=== PATIENT | female | born 1980 | race Caucasian/White ===

== ENCOUNTER 2018-09-13 17:09 | Emergency (ER) | payer MEDICARE, OTHER ==
[~2018-09-13] VITALS: Ht 154.9 cm; Wt 59.0 kg
[~2018-09-13 17:09] MED LIST: ASPI81EC PO; Bactroban22 GM TOP; CEPH500 PO; HYDACE5 PO; HYDMOR4 PO; IBUP400 PO; LORA.5 PO; NAPR550 PO; Percocet 5-3251 EACH PO; RXHYDACE PO; RXOXYACE PO; SERT50 PO; TRIM250 PO
[2018-09-13] MEDS ORDERED: AMOCLA400S PO (17:50)
== END 2018-09-13 18:27 | disposition home or self-care (01) ==
LOC: ER 17:09
DX: J02.0 Streptococcal pharyngitis (principal); F17.210 Nicotine dependence, cigarettes, uncomplicated
CPT/HCPCS: 99283; J1100

== ENCOUNTER 2019-03-07 01:47 | Emergency (ER) | payer MEDICARE, OTHER ==
[~2019-03-07] VITALS: Ht 154.9 cm; Wt 54.4 kg
[~2019-03-07 01:47] MED LIST changes: +AMOCLA400S PO
[2019-03-07] MEDS ORDERED: Roxicodone5 MG PO (04:55)
[2019-03-07] MEDS ORDERED: PAROEX473 ML MM (04:55)
[2019-03-07] MEDS ORDERED: ONDA4ODT MM (05:08)
== END 2019-03-07 05:52 | disposition home or self-care (01) ==
LOC: ER 01:47
DX: S06.9X9A Unspecified intracranial injury with loss of consciousness of unspecified duration, initial encounter (principal); S32.10XA Unspecified fracture of sacrum, initial encounter for closed fracture; S01.511A Laceration without foreign body of lip, initial encounter; S01.512A Laceration without foreign body of oral cavity, initial encounter; F41.9 Anxiety disorder, unspecified; F17.210 Nicotine dependence, cigarettes, uncomplicated; W19.XXXA Unspecified fall, initial encounter
CPT/HCPCS: 12011; 70450; 70486; 72220; 90471; 90714; 99284-25; A9270; A9270-GY

== ENCOUNTER 2021-11-15 16:19 | Emergency (ER) | payer MEDICARE, OTHER ==
[~2021-11-15] VITALS: Ht 154.9 cm; Wt 61.2 kg
[~2021-11-15 16:19] MED LIST changes: +ONDA4ODT MM; +PAROEX473 ML MM; +Roxicodone5 MG PO
[2021-11-15 17:23] LABS: Albumin, Blood 3.8 g/dL (3.4-5.0); Albumin/Globulin Ratio 0.9 (0.8-1.8); Bilirubin, Total 0.6 mg/dL (0.1-1.0); Bun/Creatinine Ratio 24.8 (12.0-20.0); Calcium, Blood 8.7 mg/dL (8.5-10.1); Creatinine, Blood 1.01 mg/dL (0.40-1.00); Globulin, Blood 4.2 g/dL (2.2-4.0); Potassium, Blood 4.9 mmol/L (3.5-5.5)
[2021-11-15 18:04] LABS: BASOPHILS ABSOLUTE AUTO 0.05 K/mm3 (0.00-0.23); BASOPHILS PERCENT AUTO 1 % (0-2); EOSINOPHILS ABSOLUTE AUTO 0.08 K/mm3 (0.00-0.68); EOSINOPHILS PERCENT AUTO 1 % (0-6); Hematocrit 49.5 % (33.0-51.0); Hemoglobin 16.8 g/dL (11.5-16.0); IMMATURE GRAN ABSOLUTE AUTO 0.03 K/mm3 (0.00-0.10); IMMATURE GRAN PERCENT AUTO 0 % (0-1); LYMPHOCYTES ABSOLUTE AUTO 3.83 K/mm3 (0.84-5.20); LYMPHOCYTES PERCENT AUTO 36 % (21-46); MONOCYTES ABSOLUTE AUTO 0.59 K/mm3 (0.16-1.47); MONOCYTES PERCENT AUTO 6 % (4-13); Mean Corpuscular HGB 31.6 pg (26.0-34.0); Mean Corpuscular HGB Conc 33.9 g/dL (31.5-36.5); Mean Corpuscular Volume 93 fL (80-100); NEUTROPHILS ABSOLUTE AUTO 5.95 K/mm3 (1.96-9.15); NEUTROPHILS PERCENT AUTO 56 % (41-73); Platelet Count 214 K/mm3 (150-400); RDW Coefficient Variation 13.3 % (11.7-14.2); RDW Standard Deviation 46.5 fL (35.1-46.3); Red Blood Cell Count 5.31 M/mm3 (3.80-5.20); White Blood Cell Count 10.53 K/mm3 (4.00-11.30)
== END 2021-11-15 23:10 | disposition home or self-care (01) ==
LOC: ER 16:19
PROVIDERS: Emergency Medicine; Physician Assistant
DX: R60.0 Localized edema (principal); F17.210 Nicotine dependence, cigarettes, uncomplicated
CPT/HCPCS: 36415; 71045; 71260; 80053; 83880; 84484; 85025; 85379; 93005; 93010; 93970; 99284-25; Q9967

== ENCOUNTER 2022-06-24 22:51 | Emergency (ER) | payer MEDICARE, OTHER ==
[~2022-06-24 22:51] MED LIST changes: +HYDHCL25 PO
== END 2022-06-25 04:35 | disposition home or self-care (01) ==
DX: M54.9 Dorsalgia, unspecified (principal); F17.210 Nicotine dependence, cigarettes, uncomplicated

== ENCOUNTER 2022-07-05 18:10 | Emergency (ER) | payer MEDICARE, OTHER ==
[~2022-07-05] VITALS: Ht 154.9 cm; Wt 59.0 kg
[2022-07-05 21:41] LABS: BASOPHILS ABSOLUTE AUTO 0.05 K/mm3 (0.00-0.23); BASOPHILS PERCENT AUTO 0 % (0-2); EOSINOPHILS ABSOLUTE AUTO 0.02 K/mm3 (0.00-0.68); EOSINOPHILS PERCENT AUTO 0 % (0-6); Hematocrit 46.6 % (33.0-51.0); Hemoglobin 16.4 g/dL (11.5-16.0); IMMATURE GRAN ABSOLUTE AUTO 0.06 K/mm3 (0.00-0.10); IMMATURE GRAN PERCENT AUTO 0 % (0-1); LYMPHOCYTES ABSOLUTE AUTO 2.71 K/mm3 (0.84-5.20); LYMPHOCYTES PERCENT AUTO 13 % (21-46); MONOCYTES ABSOLUTE AUTO 1.31 K/mm3 (0.16-1.47); MONOCYTES PERCENT AUTO 6 % (4-13); Mean Corpuscular HGB 32.3 pg (26.0-34.0); Mean Corpuscular HGB Conc 35.2 g/dL (31.5-36.5); Mean Corpuscular Volume 92 fL (80-100); NEUTROPHILS ABSOLUTE AUTO 16.34 K/mm3 (1.96-9.15); NEUTROPHILS PERCENT AUTO 80 % (41-73); Platelet Count 341 K/mm3 (150-400); RDW Coefficient Variation 14.2 % (11.7-14.2); RDW Standard Deviation 47.7 fL (35.1-46.3); Red Blood Cell Count 5.07 M/mm3 (3.80-5.20); White Blood Cell Count 20.49 K/mm3 (4.00-11.30)
[2022-07-05 22:02] LABS: Albumin, Blood 2.9 g/dL (3.4-5.0); Albumin/Globulin Ratio 0.7 (0.8-1.8); Bilirubin, Total 0.8 mg/dL (0.1-1.0); Calcium, Blood 8.8 mg/dL (8.5-10.1); Creatinine, Blood 0.79 mg/dL (0.40-1.00); Globulin, Blood 4.1 g/dL (2.2-4.0)
[2022-07-05 22:27] LABS: Influenza B, PCR NEGATIVE (NEGATIVE); Resp Syncytial Virus, PCR NEGATIVE (NEGATIVE); SARS-Cov-2 (COVID-19) PCR, MMC NEGATIVE (NEGATIVE)
[2022-07-06 00:04] LABS: Influenza A, PCR POSITIVE (NEGATIVE)
[2022-07-06] MEDS ORDERED: Tamiflu75 MG PO (01:46)
== END 2022-07-06 02:02 | disposition home or self-care (01) ==
LOC: ER 18:10
PROVIDERS: Emergency Medicine; Student in an Organized Health Care Education/Training Program
DX: J44.1 Chronic obstructive pulmonary disease with (acute) exacerbation (principal); J10.1 Influenza due to other identified influenza virus with other respiratory manifestations; F41.9 Anxiety disorder, unspecified; Z20.822 Contact with and (suspected) exposure to COVID-19; F17.210 Nicotine dependence, cigarettes, uncomplicated
CPT/HCPCS: 0241U; 36415; 71045; 71260; 80053; 83880; 84145; 85025; 85379; 93005; 93010; 94640; 94664; A9270; J2060; J7030; Q9967

== ENCOUNTER 2022-07-08 12:21 | Inpatient (IN) | payer MEDICARE, OTHER ==
[~2022-07-08] VITALS: Ht 154.9 cm; Wt 54.1 kg
[~2022-07-08 12:21] MED LIST changes: +Tamiflu75 MG PO
[2022-07-08 14:02] LABS: Influenza B, PCR NEGATIVE (NEGATIVE); Resp Syncytial Virus, PCR NEGATIVE (NEGATIVE); SARS-Cov-2 (COVID-19) PCR, MMC NEGATIVE (NEGATIVE)
[2022-07-08 14:03] LABS: Influenza A, PCR POSITIVE (NEGATIVE)
[2022-07-08 14:13] LABS: Base Excess Venous -6.8 mmol/L; Bicarbonate Venous 19.2 mmol/L (24.0-30.0); PCO2 Venous 36.2 mmHg (38-42); pH Blood Venous 7.33 (7.34-7.37)
[2022-07-08 14:29] LABS: Hemoglobin 19.8 g/dL (11.5-16.0); Mean Corpuscular HGB 32.1 pg (26.0-34.0); Mean Corpuscular HGB Conc 34.7 g/dL (31.5-36.5); Mean Corpuscular Volume 93 fL (80-100); Platelet Count 336 K/mm3 (150-400); RDW Coefficient Variation 14.6 % (11.7-14.2); RDW Standard Deviation 49.2 fL (35.1-46.3); Red Blood Cell Count 6.16 M/mm3 (3.80-5.20); White Blood Cell Count 27.85 K/mm3 (4.00-11.30)
[2022-07-08 14:47] LABS: Albumin, Blood 2.7 g/dL (3.4-5.0); Albumin/Globulin Ratio 0.6 (0.8-1.8); Bilirubin, Total 1.3 mg/dL (0.1-1.0); Bun/Creatinine Ratio 20.5 (12.0-20.0); Calcium, Blood 9.2 mg/dL (8.5-10.1); Creatinine, Blood 1.32 mg/dL (0.40-1.00); Globulin, Blood 4.6 g/dL (2.2-4.0); Potassium, Blood 4.8 mmol/L (3.5-5.5); Total Protein, Blood 7.3 g/dL (6.4-8.2)
[2022-07-08 16:18] LABS: BAND PERCENT MAN 13 % (0-8); BASOPHILS PERCENT MAN 0 % (0-2); EOSINOPHILS PERCENT MAN 0 % (0-6); LYMPHOCYTES ABSOLUTE MAN 1.67 K/mm3 (0.84-5.20); LYMPHOCYTES PERCENT MAN 6 % (21-46); MONOCYTES ABSOLUTE MAN 1.39 K/mm3 (0.16-1.47); MONOCYTES PERCENT MAN 5 % (4-13); NEUTROPHILS ABSOLUTE MAN 24.78 K/mm3 (1.96-9.15); SEG NEUTROPHILS PERCENT MAN 76 % (41-73); TOTAL CELLS COUNTED 100
[2022-07-08 17:29] LABS: U Amphetamine Screen DETECTED; U Barbituate Screen Not Detected; U Benzodiazapine Screen DETECTED; U Buprenorphine Screen Not Detected; U Cannabinoids Screen Not Detected; U Cocaine Screen Not Detected; U Methadone Screen Not Detected; U Methamphetamine Screen DETECTED; U Opiates Screen Not Detected; U Oxycodone Screen Not Detected; U Phencyclidine Screen Not Detected; U Propoxyphene Screen Not Detected
[2022-07-09 04:07] LABS: PCO2 Arterial 23.9 mmHg (35-45); PO2 Arterial 67.5 mmHg (80-100); pH Blood Arterial 7.37 (7.35-7.45)
--- NOTE | 2022-07-09 04:43 | NUR ---
REQUESTED BY [facility] FLOOR HOT SAW OPERATOR TO ASSESS PT. UPON ARRIVAL PT HAD HIGH RR IN THE UPPER 40'S, WAS MOTTLED, AND CONFUSED. PCU HOT SAW OPERATOR ARRIVED TO ASSESS STATUS AND DR GLEASON WAS CALLED TO ASSESS. AFTER HIS ASSESSMENT HE ORDERED AN ABG, BIPAP, AND THE PT MOVED TO ICU. PRIOR TO THE DR'S ARRIVAL PT WAS GIVEN A NEB TX. ABG RESULT SHOWED COMPENSATED METABOLIC ACIDOSIS. PT WAS MOVED TO ICU AND PLACED ON BIPAP. PT WAS EXTREMELY ANXIOUS WHEN I PUT THE BIPAP MASK ON HER. BECAUSE OF THIS SHE KEPT ATTEMPTING TO REMOVE MASK AND WAS PUT IN SOFT RESTRAINTS BY RN. ONCE PT BEGAN TO CALM DOWN HER RR DROPPED TO LOW 40'S AND SHE WAS MORE TOLERANT OF BIPAP AND MASK. *SEE NIV INTERVENTION SHEET FOR BIPAP SETTINGS* UPON MY DEPARTURE THE PT SAT WAS 96%, HER RR WAS SLOWLY DROPPING, AND HER WOB WAS SHOWING SOME IMPROVEMENT.
--- NOTE | 2022-07-09 04:56 | NUR ---
2330: PT ADMITTED FROM ED FOR PULMONARY EDEMA. MOTTLED BILTERAL LOW EXTREMITY. INCREASE RR AT 40'S. AOX2. INTERMITTENTLY ANXIOUS. TACHYCARDIAC. PT SLEEPING. TRANSFERED VIA SLIDER SHEET FROM THE GURNEY TO BED. PT ALSO HAVE COLD DISCOLERED BILATERAL HANDS. INTERMITTENTLY COUGHING. LUNGS ARE CLEAR. CALL LIGHT WITHIN REACH.
--- NOTE | 2022-07-09 05:00 | NUR ---
0430: PT TRANSFERED TO ICU3. CALLED DR. GLEASON PRIOR TO REPORT RESP RATE SUSTAINING AT 40'S. REPORT GIVEN TO REGINALDO CLIENT SUPPORT MANAGER AT BEDSIDE. PT APPEARTS TO BE DROWSY, AWAKEN AND RESPOND BUT HARD TO UNDERSTAND SPEECH. TELE: SINUS TACH AT 120'S. CHARGE NURSE JANKI RN WAS NOTIFIED OF CHANGES. RESP THERAPIST AND [employer] SALES REPRESENTATIVE CAME IN TO ASSESS PATIENT WELL DR. GLEASON.
[2022-07-09 06:07] LABS: Hematocrit 53.2 % (33.0-51.0); Hemoglobin 18.4 g/dL (11.5-16.0); Mean Corpuscular HGB 32.2 pg (26.0-34.0); Mean Corpuscular HGB Conc 34.6 g/dL (31.5-36.5); Mean Corpuscular Volume 93 fL (80-100); Mean Platelet Volume 10.4 fL (9.1-12.4); NRBC ABSOLUTE 0.02 K/mm3 (0.00-0.02); NRBC Auto 0.1 /100 WBC (0.0-0.2); Platelet Count 311 K/mm3 (150-400); RDW Coefficient Variation 14.4 % (11.7-14.2); RDW Standard Deviation 49.3 fL (35.1-46.3); Red Blood Cell Count 5.71 M/mm3 (3.80-5.20); White Blood Cell Count 24.85 K/mm3 (4.00-11.30)
[2022-07-09 06:28] LABS: Bun/Creatinine Ratio 20.1 (12.0-20.0); Calcium, Blood 8.3 mg/dL (8.5-10.1); Creatinine, Blood 1.84 mg/dL (0.40-1.00)
--- NOTE | 2022-07-09 07:30 | NUR ---
PT AWAKE, BUT CONFUSUED AND AGITATED. PT THRASHING IN THE BED AND PULLING ON LINES AND TUBES. PT NOT TOLERATING BIPAP MASK WITH PRECEDEX @ 0.7 MCG/KG/MIN. LUNGS COARSE, TIGHT, AND DIMINISHED TO BASES. UNABLE TO OBTAIN SPO2 PT EXTREMETIES ARE MOTTLED. RR 50'S. PT USING ACCESSORY MUSCLES TO BREATH. ECG SHOWS ST WITH RATE 120'S. NPO DUE TO RESPIRATORY DISTRESS. PT HAS ATTENDS IN PLACE THAT IS DRY. DR. CARL UPDATE AND ORDER GIVEN TO TITRATE PRECEDEX UP TO 1.4 MCG/KG/MIN-MED WITH ATIVAN 2 [address] X [address] YIN HAS BEEN CONSULTED. PT S/O JAYCE UPDATED TO PT STATUS AND PLAN OF CARE. JAYCE IS CONTACTING PT SIBLINGS.
--- NOTE | 2022-07-09 07:33 | NUR ---
Shift summary: Pt transferred to the ICU from medical floor at 0415. Pt was drowsy but calm, following some commands. She was tachycardic 110-130s, BP were WNL. pt was on 2L NC CEMENT CAR DUMPER and was quickly transitioned to bipap 10/6 45% and tolerating. Lung sounds were clear in bilateral upper lobes and diminished/exp wheezes in bilateral bases. Labs were attempted to be drawn and we were unsuccessful. Powerglide was finally placed by Chivo MATOS to [facility] and labs were obtained. lactic acid came back critical at 4.2 with no new orders by MD placed. Around 6:50am pt started attempting to pull off bipap mask and yell and thrash in bed screaming for water. Precedex maxed at 0.7mcg and restraints applied. Tried to reorient pt and explain the importance of bipap mask and she would only calm down for a few minutes before continuing to do the same thing. Skin is mottled on BLE and her hands are dusky and cool.
--- NOTE | 2022-07-09 08:00 | NUR ---
DR YIN IN TO SEE PT. PT STILL AGITATED AND LABORING TO BREATH-DESPITE PRECEDEX @ 1.4 MCG/KG/MIN, ATIVAN 2 MG IVP-2 DOSES GIVEN, AND FENTANYL 25 MCG IVP X 1. ECHO HAS BEEN ORDERED AND NURSING MIXING SUPERVISOR MADE AWARE THAT ECHO IS NEEDED URGENTLY. STILL UNABLE TO OBTAIN SPO2 READING. SBP TRENDING 90-100'S. NS BOLUS # 2 INITIATED.
--- NOTE | 2022-07-09 09:00 | NUR ---
SATS 70'-PER NASAL SPO2. RR 50'S AND LABORED ON BIPAP. SBP STILL SOFT. DR. YIN SUMMONED TO BEDSIDE. PREP FOR RSI.
--- NOTE | 2022-07-09 09:15 | NUR ---
SUMMARY OF RSI: 0900- PT MED WITH 20 MG OF ETOMIDATE. 0903- 7.5 ETT/24 @ LIP. PROPOFOL DRIP INITIATED @ 50 MCG/KG/MIN. 0908-VENT AC 14, 350, 12, 100% 0911-OGT PLACED. 0915-MAP TRENDING IN THE 40'S-MED WITH PHENYLEPHRINE 50 MCG IVP X 1 AND LEVOPHED DRIP REQUESTED. 0916- PROPOFOL AND PRECEDEX DRIPS ON SB. NS BOLUS INFUSING. CXR DONE AND ETT & PLACEMENT CONFIRMED. ETT WITHDRAWN 1 CM. 0920-LEVOPHED DRIP INITIATED @ 10 MCG/MIN. 0930-LEVOPHED DRIP TITRATED UP TO 20 MCG/MIN -GOAL MAP 60-65. PRECEDEX DRIP RESUMED @ 0.7 MCG/KG/MIN AND PROPOFOL @ 25 MCG/KG/MIN PT COUGHING AND NOT TOLERATING VENT. 1000-MAP STILL TRENDING LESS THAN 60-VASOPRESSIN DRIP INITIATED @ 0.04 UNIT/MIN. PRECEDEX DRIP ON SB. 1004-MAP TRENDING LESS THAN 60 AND SPO2 50'S- @ BEDSIDE-PT SUCTIONED FOR SMALL AMOUNT OF THICK, POWERS/BLOODY SECRETIONS. SPUTUM SPECIMEN SENT POST INTUBATION. 1004- DOPAMINE DRIP INITIATED @ 20 MCG/KG/MIN MAP LESS THAN 60. 1015 LEVOPHED TITRATED UP TO 35 MCG/MIN PER DR. YIN. PING PONG TABLE ASSEMBLER @ BEDSIDE @ 1045. DR. YIN UPDATED PT SISTER TO STATUS AND PLAN OF CARE. PLAN FOR ART LINE PLACEMENT AND CTA OF CHEST/PE STUDY.
[2022-07-09 09:36] LABS: Source, Urine Foley catheter
[2022-07-09 09:39] LABS: Appearance, Urine Cloudy (Clear); Bilirubin, Urine Neg (Neg); Blood, Urine 3+ (Neg); Color, Urine Yellow (P-Yellow); Glucose Qualitative, Urine 1+ (Neg); Ketones, Urine 1+ (Neg); Leukocyte Esterase, Urine 2+ (Neg); Nitrite, Urine Neg (Neg); Protein, Urine 3+ (Neg); Specific Gravity, Urine 1.025 (1.003-1.022); Urobilinogen, Urine 2+ (Normal)
[2022-07-09 10:09] LABS: PCO2 Arterial 31.4 mmHg (35-45); PO2 Arterial 224 mmHg (80-100); pH Blood Arterial 7.24 (7.35-7.45)
[2022-07-09 10:29] LABS: White Blood Cells, Urine TNTC /hpf (0-5)
[2022-07-09 10:30] LABS: Bacteria Many /hpf; Squamous Epithelial Cells Few /hpf (Few)
[2022-07-09 10:31] LABS: Transitional Epithelial Cells Rare /hpf (0-Rare)
--- NOTE | 2022-07-09 10:55 | NUR ---
MAP TRENDING >65-DOPAMINE DRIP HAS BEEN TITRATED OFF.
--- NOTE | 2022-07-09 11:05 | NUR ---
MAP TRENDING >65 LEVOPHED TITRATED DOWN TO 25 MCG/MIN.
--- NOTE | 2022-07-09 12:00 | NUR ---
DR. YIN AND DR. JOHNSON AT BEDSIDE TO PLACE A-LINE. PT REMAINS MOTTLED AND IT IS DIFFICULT TO OBTAIN BOTH NIBP AND SPO2 ACCURATELY. PT AGITATED WITH STIMULI-PROPOFOL TITRATED UP TO 35 MCG/KG/MIN AND PT MED WITH FENTANYL 25 MCG IVP X 1 AND ATIVAN 1 MG IVP X 1 FOR PAIN/SEDATION ADJUNCT. TEMP 101.3-MED WITH TYLENOL 650 MG VIA OGT. HELMS TO BSD WITH SMALL AMOUNT OF DARK, BRODIE URINE OUTPUT. PT FAMILY AND S/O UPDATED TO PLAN OF CARE. ONCE A-LINE PLACED, PLAN TO TRANSPORT TO CTA OF CHEST/PE STUDY.
--- NOTE | 2022-07-09 14:00 | NUR ---
CTA/PE STUDY COMPLETE. DURING CT, PT TV DROPPED TO 180'S AND RR 48-MED WITH ATIVAN 2 MG IVP X 1, PRECEDEX DRIP RESUMED @ 0.7 MCG/KG/MIN, AND PROPOFOL DRIP TITRATED UP TO 40 MCG/KG/MIN. STILL DIFFICULT TO GET ACCURATE SPO2 AND NIBP. [address] A-LINE UNSUCCESSFUL. TITRATING LEVOPHED TO KEEP MAP>65. TEMP 101.4- DESPITE TYLENOL. ICE PACKS PLACED TO BACK OF THE NECK AND AXILLA. HELMS WITH SMALL AMOUNT OF DARK, BRODIE URINE OUTPUT.
[2022-07-09 14:25] LABS: Bun/Creatinine Ratio 17.7 (12.0-20.0); Calcium, Blood 6.8 mg/dL (8.5-10.1); Creatinine, Blood 2.2 mg/dL (0.40-1.00); Potassium, Blood 5.3 mmol/L (3.5-5.5)
--- NOTE | 2022-07-09 15:25 | NUR ---
Spoke with Dr Edwards and discussed case. Family may benefit from determining decision maker. Met with family in ICU waiting room. KIRA Yancey, Brother [place], Father Kelvin, Step mother Mela, and sister present. Family reports Pt has a son Arslan also. Family report son Arslan is not emotionaly capable of making decisions at this time. Gentle discussion on the importance of determining decision maker in case needed. Provided update and reviewed plan of care. After discussion, family elects KIRA Yancey as decision maker. Bc is in agreement and reports plan to discuss any potential decisions with family. Brief gentle discussion regarding code status and brief gentle education on risks and implications of CPR. Family report Pt's wishes are Full Code. Family expresses appreciation and report no other concerns at this time. Spoke with Primary RNs Ronald and Ifeoma. Relayed family's decision for KIRA Yancey to be decision maker. Palliative Care will remain available
--- NOTE | 2022-07-09 16:00 | NUR ---
PT REMAINS INTUBATED, SEDATED ON PROPOFOL @ 40 MCG/KG/MIN & PRECEDEX @ 0.7 MCG/KG/MIN, AND RESTRAINED. TEMP<101 WITH ICE PACKS IN PLACE. ECG SHOWS ST WITH RATE 100-110'S. BP 120/D WITH LEVOPHED @ 15 MCG/MIN,DOPAMINE @ 8 MCG/KG/MIN, AND VASOPRESSIN @ 0.04 UNITS/MIN-VASOPRESSORS TO REMAIN AT CURRENT RATE PER DR. YIN. RE-CHECK BP PER DOPPLER EVERY HOUR UNTIL A-LINE IS PLACED. LUNGS REMAIN COARSE, TIGHT, AND DIMINISHED. ETT TO VENT: AC 14, RR 28-32, TV 350, PEEP 14, FIO2 100%-GOOD SPO2 PLETH ON PT FOREHEAD. PT REMAINS MOTTLED-NOSE, EARS, AND LIPS CYANOTIC. OGT TO LIS WITH SCANT AMOUNT OF LIGHT, BROWN DRAINAGE. HELMS WITH SMALL AMOUNT OF DARK, BRODIE URINE TO UROMETER. PLAN FOR CARDIOLOGY TO PLACE A-LINE WHEN AVAILABLE.
--- NOTE | 2022-07-09 18:00 | NUR ---
PT RESTING QUIETLY ON VENT AT THIS TIME. BP 130/D. MESSAGE LEFT FOR DR. STANLEY REGARDING A-LINE PLACEMENT. FIO2 TITRATED DOWN TO 90% AND SATS>90%
--- NOTE | 2022-07-09 18:14 | NUR ---
FLUID BALANCE OVER 4 LITERS + PT FACE, NECK, AND SCLERA EDEMATOUS.
--- NOTE | 2022-07-09 18:24 | NUR ---
DR. YIN IN TO SEE PT-FIO2 TITRATED DOWN TO 70% AND PEEP DECREASED TO 12. RT NOTIFIED.
--- NOTE | 2022-07-09 19:28 | NUR ---
ASSUMED CARE OF PT AT 0700 SEDATED AND INTUBATED. AC/VC 14/350/12/60% PROP 0.7MCG/KG/MIN, LEVO 15, VASO 0.04 UNITS/MIN, DOPAMINE 8 MCG/KG/MIN. BP 103/27 HR 107. SIGNIFICANT MOTTLING OF UPPER AND LOWER EXTREMETIES. [facility] CURRENTLY ON PATIENT D/T REPORT OF HIGH TEMP ON DAY SHIFT. TEMP 98.5. DR TAVARES PRESENT AT THIS TIME. OG TUBE IN PLACE AND RUNNING TO SUCTION. HELMS DRAINING TO GRAVITY WITH YELLOW URINE PRESENT. SEE FULL ASSESSMENT FOR FURTHER INFORMATION.
[2022-07-10 04:55] LABS: BASOPHILS ABSOLUTE AUTO 0.16 K/mm3 (0.00-0.23); BASOPHILS PERCENT AUTO 1 % (0-2); EOSINOPHILS ABSOLUTE AUTO 0.04 K/mm3 (0.00-0.68); EOSINOPHILS PERCENT AUTO 0 % (0-6); Hematocrit 49.6 % (33.0-51.0); Hemoglobin 16.9 g/dL (11.5-16.0); IMMATURE GRAN PERCENT AUTO 1 % (0-1); LYMPHOCYTES ABSOLUTE AUTO 1.99 K/mm3 (0.84-5.20); LYMPHOCYTES PERCENT AUTO 7 % (21-46); MONOCYTES ABSOLUTE AUTO 0.86 K/mm3 (0.16-1.47); MONOCYTES PERCENT AUTO 3 % (4-13); Mean Corpuscular HGB 32.1 pg (26.0-34.0); Mean Corpuscular HGB Conc 34.1 g/dL (31.5-36.5); Mean Corpuscular Volume 94 fL (80-100); Mean Platelet Volume 11.3 fL (9.1-12.4); NEUTROPHILS ABSOLUTE AUTO 25.24 K/mm3 (1.96-9.15); NEUTROPHILS PERCENT AUTO 88 % (41-73); NRBC ABSOLUTE 0.03 K/mm3 (0.00-0.02); NRBC Auto 0.1 /100 WBC (0.0-0.2); Platelet Count 236 K/mm3 (150-400); RDW Coefficient Variation 14.9 % (11.7-14.2); RDW Standard Deviation 51.1 fL (35.1-46.3); Red Blood Cell Count 5.26 M/mm3 (3.80-5.20); White Blood Cell Count 28.59 K/mm3 (4.00-11.30)
[2022-07-10 05:18] LABS: Bicarbonate Venous 17.4 mmol/L (24.0-30.0); PCO2 Venous 39.9 mmHg (38-42); pH Blood Venous 7.26 (7.34-7.37)
[2022-07-10 05:24] LABS: Albumin, Blood 2.2 g/dL (3.4-5.0); Albumin/Globulin Ratio 0.6 (0.8-1.8); Bilirubin, Total 0.8 mg/dL (0.1-1.0); Bun/Creatinine Ratio 36.9 (12.0-20.0); Calcium, Blood 7.8 mg/dL (8.5-10.1); Creatinine, Blood 1.03 mg/dL (0.40-1.00); Globulin, Blood 3.9 g/dL (2.2-4.0); Magnesium, Blood 1.8 mg/dL (1.6-2.4); Phosphorus, Blood 4.7 mg/dL (2.5-4.9); Potassium, Blood 5.3 mmol/L (3.5-5.5); Total Protein, Blood 6.1 g/dL (6.4-8.2)
--- NOTE | 2022-07-10 05:49 | NUR ---
END OF SHIFT SUMMARY SEDATED AND INTUBATED. AC/VC 14/350/8/40% NO RESPONSE TO NOXIOUS STIMULI. NO PURPOSEFUL MOVEMENT THIS SHIFT. -IV'S -- PROP @ 30 MCG/KG/MIN DOPAMINE @ 8 MCG/KG/MIN VASOPRESSIN @ 0.04 UNITS/MIN LEVO @15 -NUTRITION-- TF VITAL HP @35MLS/HR WITH GOAL RATE OF 45 MLS/HR. -CARDIAC-- BP SYST 120'S TO 130'S THROUGHOUT SHIFT. BP TAKEN WITH DOPPLER AND MANUAL CUFF. MINIMAL SWELLING APPARENT IN FACIAL AREAS. NS 250MLS/HR DC'D. HR 110'S TO 120'S THROUGHOUT SHIFT. MOTTLING APPARENT IN UPPER AND LOWER EXT. NO PULSE FOUND IN PEDAL AREAS. FEBRILE DURING LAST HALF OF SHIFT WITH CURRENT TEMP AT 101.4. PRN ACET GIVEN WITH NO DECREASE IN TEMP. -RESP-- LUNG SOUNDS COARSE WITH DIMINISHED BASES. MINIMAL RED THICK SPUTUM WHEN SUCTIONED. -GI---- 700 MLS YELLOW URINE OUT. NO BM THIS SHIFT.
--- NOTE | 2022-07-10 08:36 | NUR ---
ASSUMED CARE PT IS INTUBATED AND SEDATED ON 30MCG OF PROPOFOL. VENT SETTINGS 14/350/8/40% W/ SPO2 >92%. SBP 110S/DOPPLER ON 15 MCG OF LEVOPHED, 5MCG OF DOPAMINE, AND 0.04 UNITS OF VASOPRESSIN. MOTTLING NOTED IN ALL EXTREMITIES W/ BLUE DISCOLORATION OF KNEE'S AND BUE/BLE. PUPILS EQUAL AND HAS BRISK RESPONSE. PT GRIMACES TO PAINFUL STIMULI W/ POORER RESPONSES TO NAILBED PRESSURE. GENERALIZED EDEMA NOTED, W/ MORE SEVERE SCLERAL EDEMA. HYPOACTIVE BOWEL TONES. HELMS PATENT AND DRAINING TO GRAVITY.
--- NOTE | 2022-07-10 10:54 | NUR ---
Brief supportive visit this AM. Pt resting in bed and intubated. Primary RNs Laura and Ronald performing sedation vacation. Reviewed plan of care with Laura and discussed concerns. Palliative Care will remain available for supportive and therapeutic visits for Pt and family.
[2022-07-10 12:33] LABS: Vancomycin, Random 6.1 ug/mL
--- NOTE | 2022-07-10 13:39 | NUR ---
PT UPDATE.... THIS RN SPOKE WITH ICU PROVIDER DURING 10AM ROUNDS ABOUT ONLY BEING ABLE TO GET DOPPLER BPs. THIS PROVIDER VERBALIZED HIS UNDERSTANDING AND ASKED FOR A CARDIOLOGY CONSULT. THE CONSULT WAS CALLED IN AND CARDIOLOGY PROVIDER WISHED TO SPEAK DIRECTLY TO THE ICU PROIVDER. THIS RN READDRESSED THE ISSUE OF ONLY GETTING DOPPLER BPs ON THIS PT WHILE SHE IS ON LEVOPHED AT 15MCG, VASO AT 0.04U/HR AND DOPAMINE AT 5MCG. THE ICU PROVIDER STATED HE WANTED TO SPEAK WITH THE SERVICE TEAM LEADER PRIOR TO ANY INTERVENTIONS. WILL CONTINUE TO MONITOR.
--- NOTE | 2022-07-10 17:21 | NUR ---
SHIFT SUMMARY PT IS INTUBATED AND SEDATED ON 30MCG OF PROPOFOL; VENT SETTINGS AT 14/350/8/40% W/ SPO2 >92%; SBP >100S USING DOPPLER. VASOPRESSIN 0.04 UNITS/HR, LEVOPHED @ 15 MCG, DOPAMINE @ 5MCG, DOBUTAMINE @ 5MCG. PT WAS ON SEDATION VACATION FOR AN HOUR THIS MORNING AND ATTEMPTED TO OPEN EYES, BUT DID NOT FOLLOW COMMANDS. RESPONDS TO NOXIOUS/PAINFUL STIMULI, BUT HAS POORER RESPONSES WHEN APPLYING NAILBED PRESSURE. PT HAD COARSE LUNG SOUNDS AT THE BEGINNING OF SHIFT; RIGHT LOBES GETTING MORE COARSE W/ RHONCHI. PT WILL HAVE EPISODES OF LABORED/ACCESSORY MUSCLE USAGE RESPIRATIONS W/ TACHYPNEIC EPISODES INTO THE 40'S, BUT SETTLES WHEN LEFT ALONE. FAMILY HAS BEEN AT BEDSIDE W/ DR. BENITEZ NOTIFYING SISTER/S.O. OF PT'S CONDITION. DECISION TO BE MADE LIMITED CODE MADE BY S.O. DIFFICULT TO ASSESS BP DOPPLER GIVES ONLY "ACCURATE" READING. BOWEL TONES ARE HYPOACTIVE.
--- NOTE | 2022-07-10 23:00 | NUR ---
AFTER REPOSITIONING PT OXYGEN SATURATION BEGAN TO READ IN THE 40S-60S. DR BENITEZ WAS CALLED AND A MESSAGE WAS LEFT TO CALL ICU. SAMI RT CAME TO BEDSIDE. ORDERS WERE GIVEN FOR STAT ABG. NO CRITICAL VALUES WERE FOUND ON BLOOD GAS,DUE TO POOR PERFUSION PT OXYGEN SAT JUST ISN'T READING CONSISTANTLY. FIO2 IS AT 100% AT THIS TIME. PT BECOMES VERY TACHYPNIC AND AGITIATED W/ANY STIMULATION AT ALL.
[2022-07-10 23:10] LABS: pH Blood Arterial 7.32 (7.35-7.45)
[2022-07-10 23:11] LABS: PCO2 Arterial 38.8 mmHg (35-45); PO2 Arterial 133 mmHg (80-100)
--- NOTE | 2022-07-11 05:35 | NUR ---
SHIFT SUMMERY PT BECOMES VERY AGITATED W/ANY STIMULATION, INCLUDING MOUTH CARE CAUSING HER TO BECOME VERY TACHYPNIC W/RR IN THE 50S AND OXYGEN SAT TO DROP DRASTICALLY WELL. SHE HAS INCREASING TACHYCARDIA AND IT TAKES HER SEVERAL MINUTES AND TREATMENT W/PRN MEDICATIONS TO RETURN TO BASELINE. HER FIO2 HAS BEEN INCREASED TO 100% DURING THE NIGHT. BP CONTINUE TO REQUIRE TO BE DOPPLER OBTAINED. SHE HAS HAD NO PURPOSEFUL MOVEMENT NOR HAS SHE OPENED HER EYES THIS SHIFT.
[2022-07-11 06:05] LABS: Magnesium, Blood 2.1 mg/dL (1.6-2.4)
[2022-07-11 06:06] LABS: Bun/Creatinine Ratio 42.3 (12.0-20.0); Calcium, Blood 7.9 mg/dL (8.5-10.1); Creatinine, Blood 1.04 mg/dL (0.40-1.00); Phosphorus, Blood 3.3 mg/dL (2.5-4.9); Potassium, Blood 4.8 mmol/L (3.5-5.5)
--- NOTE | 2022-07-11 07:00 | NUR ---
ASSUME CARE: I have assumed care of this patient.
--- NOTE | 2022-07-11 10:54 | NUR ---
UPDATE: Neuro status discussed with provider.
--- NOTE | 2022-07-11 15:32 | NUR ---
Supportive visit this afternoon. Pt resting in bed and is intubated. Pt's SO Bc at bedside. Offered supportive visit. Listened as Bc reports family remains hopeful. Gentle review of plan of care with Bc. Continued supportive visit. Palliative Care will remain availavle.
--- NOTE | 2022-07-11 18:13 | NUR ---
SHIFT SUMMARY: head CT obtained today NEURO: does not open eyes. BLE with tripple flexion, BUE decorticate to noxious stimuli. She was given three doses of PRN fentanyl for CPOT scores. Requires sedation for tachypnia. CARDIAC: sinus tachycardia. pressors where titrated based off doppler BPs which were maintained in 110-120s. NIBPs was cycled to trend pressures. Extremities continue to appear mottled. RESPIRATORY: current settings: AV/VC 14/250/8/50%. Pt overbreaths into 30s. GI/: two small BMs. Tube feeds infusing at goal. [place] draining clear, yellow urine. SKIN: no new breakdown PSYCH/SOCIAL: several visitors at bedside throughout the day.
--- NOTE | 2022-07-11 19:15 | NUR ---
ASSUMED CARE OF PT @1900. REPORT FROM JARET MATOS. PT SEDATED AND INTUBATED. PROPOFOL 10MCG/KG/MIN. AC VC 14/350/8/50%. ETT 7.5 AND 23@GUMS. RR 40'S, SPO2 >92%. DOBUTAMINE 10MCG/KG/MIN, VASO AND LEVOPHED ON SB. HR 120'S ST, SBP 120'S VIA DOPPLER R LEG. OG TF VITAL HP @45MLS/HR GOAL RATE. IV: 20 MAT PATENT, PG MAT PATENT AND INFUSING, PICC PHAN PATENT AND INFUSING. HELMS CATH PATENT AND DRAINING TO GRAVITY.
[2022-07-12 04:37] LABS: BASOPHILS ABSOLUTE AUTO 0.04 K/mm3 (0.00-0.23); BASOPHILS PERCENT AUTO 0 % (0-2); EOSINOPHILS PERCENT AUTO 0 % (0-6); Hematocrit 38.5 % (33.0-51.0); Hemoglobin 13.5 g/dL (11.5-16.0); IMMATURE GRAN ABSOLUTE AUTO 0.15 K/mm3 (0.00-0.10); IMMATURE GRAN PERCENT AUTO 1 % (0-1); LYMPHOCYTES ABSOLUTE AUTO 1.41 K/mm3 (0.84-5.20); LYMPHOCYTES PERCENT AUTO 9 % (21-46); MONOCYTES ABSOLUTE AUTO 0.57 K/mm3 (0.16-1.47); MONOCYTES PERCENT AUTO 4 % (4-13); Mean Corpuscular HGB 32.7 pg (26.0-34.0); Mean Corpuscular HGB Conc 35.1 g/dL (31.5-36.5); Mean Corpuscular Volume 93 fL (80-100); Mean Platelet Volume 12.2 fL (9.1-12.4); NEUTROPHILS ABSOLUTE AUTO 14.11 K/mm3 (1.96-9.15); NEUTROPHILS PERCENT AUTO 87 % (41-73); NRBC ABSOLUTE 0.03 K/mm3 (0.00-0.02); NRBC Auto 0.2 /100 WBC (0.0-0.2); Platelet Count 115 K/mm3 (150-400); RDW Coefficient Variation 14.9 % (11.7-14.2); RDW Standard Deviation 49.8 fL (35.1-46.3); Red Blood Cell Count 4.13 M/mm3 (3.80-5.20); White Blood Cell Count 16.28 K/mm3 (4.00-11.30)
[2022-07-12 04:41] LABS: Magnesium, Blood 1.9 mg/dL (1.6-2.4)
[2022-07-12 04:42] LABS: Albumin/Globulin Ratio 0.5 (0.8-1.8); Bilirubin, Total 0.8 mg/dL (0.1-1.0); Bun/Creatinine Ratio 51.4 (12.0-20.0); Creatinine, Blood 0.8 mg/dL (0.40-1.00); Globulin, Blood 3.7 g/dL (2.2-4.0); Phosphorus, Blood 2.3 mg/dL (2.5-4.9); Potassium, Blood 4.6 mmol/L (3.5-5.5); Total Protein, Blood 5.7 g/dL (6.4-8.2)
--- NOTE | 2022-07-12 05:46 | NUR ---
UPDATE: DR BENITEZ NOTIFIED OF LACTIC ACID 2.3. NO NEW ORDERS AT THIS TIME.
[2022-07-12 06:23] LABS: PCO2 Arterial 32.4 mmHg (35-45); PO2 Arterial 87.3 mmHg (80-100); pH Blood Arterial 7.45 (7.35-7.45)
--- NOTE | 2022-07-12 06:32 | NUR ---
SUMMARY: NEURO/PSYCH/MOBILITY: PT SEDATED ON PROPOFOL 20MCG/KG/MIN. GRIMACING W/ORAL CARE AND REPOSITIONING. NO PURPOSFUL MOVEMENTS. DOES NOT WITHDRAW EXTREMETIES TO NOXIOUS STIMULI. DOES NOT RESPOND TO VERBAL STIMULI. FENTANYL GIVEN PRN FOR AGGITATION AND INCREASED CPOT SCORE. TMAX 99.3. PT REMAINS MAX ASSIST FOR ALL ADL'S. RESP: PT LUNG SOUNDS COARSE THROUGHOUT. WILL DESAT INTO LOW 80'S WITH ANY STIMULATION. PT'S RR IN THE 40'S UNTIL VENT SETTINGS CHANGED TO PRESSURE CONTROL 14/8 FIO2 50% @0315. PT RESP RATE DECREASED TO THE 20'S W/SATS IN THE 90'S. SECRETIONS DECREASED THROUGHOUT SHIFT TO SMALL AMOUNTS. SPO2 PROBE MOVED TO OPPOSITE SIDES OF HER FOREHEAD Q2HRS. CARDIAC: LEVOPHED AND VASO REMIAN ON SB. DOBUTAMINE 10MCG/KG/MIN. CONTINUOUS CARDIAC MONITORING. HR 110-120, BP STABLE ON PERIPHERAL CUFF READINGS WELL DOPPLER. PERIPHERAL PULSES DOPPLER. EDEMA 2+ ON ALL EXTREMETIES AND GENERALIZED 1+. GI: OG TF VITAL HP @45MLS/HR GR. NO BM THIS SHIFT. : TEMP HELMS IN PLACE DRAINING DARK URINE TO GRAVITY W/SEDIMENT NOTED. 900MLS OUTPUT THIS SHIFT. SKIN: ASSESSMENT REMAINS UNCHANGED. BSWR IN PLACE. IV: PICC PHAN PATENT AND INFUSING. PG MAT PATENT AND INFUSING. 20GA RFA PATENT W/SALINE LOCK. LABS: CH LACTIC ACID 2.3 REPORTED TO PHYSICIAN.
--- NOTE | 2022-07-12 07:00 | NUR ---
ASSUME CARE: I have assume care of this patient.
--- NOTE | 2022-07-12 16:52 | NUR ---
PT REMAINS INTUBATED, RETING COMF. NO FAMILY AT THE BEDSIDE AT THIS TIME. PALLIATIVE CARE WILL CONTINUE TO MAKE VISITS AND BE AVAILABLE FOR SUPPORT.
--- NOTE | 2022-07-12 18:36 | NUR ---
SHIFT SUMMARY: dobutamine titrated off. Systolic pressures via doppler 110-120s. Several doses of PRN fentanyl given for elevated CPOT scores. Vent settings currently AC PC 14/8/40% with spontantous respiratory rates in the 20s-30s. Tylenol given for fever. Magnesium replaced. No BM. Family at bedside throughout the day.
--- NOTE | 2022-07-13 00:52 | NUR ---
ASSUMED CARE ASSUMED CARE AT 1900. PT INTUBATED AND SEDATED. PC 14/8/40%. RR 20-30. PROPOFOL GTT INFUSING. SEE FLOWSHEET FOR TITRATIONS. MEDICATED W/ FENTANYL WITH GOOD RESPONSE. PT DID NOT OPEN EYES OR MOVE BUE TO NOXIOUS STIMULI. MOVES BLE TO TACTILE STIMULI. OGT W/ TF AT GOAL. HELMS PATENT AND DRAINING TO GRAVITY.
[2022-07-13 03:27] LABS: BASOPHILS ABSOLUTE AUTO 0.07 K/mm3 (0.00-0.23); BASOPHILS PERCENT AUTO 0 % (0-2); EOSINOPHILS PERCENT AUTO 0 % (0-6); Hemoglobin 14.9 g/dL (11.5-16.0); IMMATURE GRAN ABSOLUTE AUTO 0.37 K/mm3 (0.00-0.10); IMMATURE GRAN PERCENT AUTO 2 % (0-1); LYMPHOCYTES PERCENT AUTO 12 % (21-46); MONOCYTES ABSOLUTE AUTO 0.83 K/mm3 (0.16-1.47); MONOCYTES PERCENT AUTO 5 % (4-13); Mean Corpuscular HGB 32.7 pg (26.0-34.0); Mean Corpuscular HGB Conc 34.7 g/dL (31.5-36.5); Mean Corpuscular Volume 95 fL (80-100); Mean Platelet Volume 12.6 fL (9.1-12.4); NEUTROPHILS ABSOLUTE AUTO 14.73 K/mm3 (1.96-9.15); NEUTROPHILS PERCENT AUTO 81 % (41-73); NRBC ABSOLUTE 0.08 K/mm3 (0.00-0.02); NRBC Auto 0.4 /100 WBC (0.0-0.2); Platelet Count 156 K/mm3 (150-400); RDW Coefficient Variation 15.9 % (11.7-14.2); RDW Standard Deviation 51.8 fL (35.1-46.3); Red Blood Cell Count 4.55 M/mm3 (3.80-5.20)
[2022-07-13 03:46] LABS: Bun/Creatinine Ratio 55.2 (12.0-20.0); Creatinine, Blood 0.82 mg/dL (0.40-1.00); Potassium, Blood 5.3 mmol/L (3.5-5.5)
[2022-07-13 08:05] LABS: PCO2 Arterial 34.7 mmHg (35-45); PO2 Arterial 152 mmHg (80-100); pH Blood Arterial 7.44 (7.35-7.45)
--- NOTE | 2022-07-13 09:17 | NUR ---
CARE OF PT ASSUMED AT 0700. PT SEDATED ON PROPOFOL AT 50MCG FOR VENT LUDY. FIO2 HAD BEEN INCREASED TO 100% LAST NIGHT, CHEST XRAY ALSO TAKEN. DR BENITEZ IN AT 0745, UPDATE GIVEN. STAT ABG ORDERED AND DRAWN. PO2 152, SPO2 DOESNT ALWAYS READ ACCURATLY D/T POOR PERIPHERAL PERFUSION. FIO2 DECREASED FROM 100% TO 70%. PT'S S/O AT BEDSIDE THIS AM, DR CARL UPDATED FAMILY. PT MOVES FEET/TOES SPONT, NO MOVEMENT NOTED IN ARMS. DOES NOT OPEN EYES OR FOLLOW COMMANDS. WILL TITRATE PROPOFOL DOWN TOLERATED.
--- NOTE | 2022-07-13 13:29 | NUR ---
PT COUGHING CONSTANTLY ON VENT, SOME STACKING, GRIMACING, FENT 50MCG GIVEN. PT'S SISTER AT BEDSIDE.
--- NOTE | 2022-07-13 16:22 | NUR ---
SMALL AMT OF TUBE FEED FOUND ON GOWN, FACE AND IN MOUTH. RESIDUAL 0, AND HAVE BEEN 0 AT 0800 AND 1200. ETT SUCTIONED, NO EVIDENCE OF TUBE FEEDS DOWN ETT, NO SECRETIONS WHERE SUCTIONED FROM ETT. ZOFRAN GIVEN, WILL NOTIFY . PT HAD SMALL LIQUID BM WELL. FAMILY AT BEDSIDE. PT PLACED ON SED VAC.
--- NOTE | 2022-07-13 17:16 | NUR ---
DR BENITEZ UPDATED. TUBE FEEDS TO REMAIN OFF FOR NOW, REGLAN TO BE STARTED.
--- NOTE | 2022-07-13 18:05 | NUR ---
AFTER 2HRS OF PROPOFOL BEING OFF PT ATTEMPTED TO OPEN EYES, DID NOT MOVE UPPER EXTREMITIES, COUGHING/GAGGING STARTED TO INCREASE AT 1800, AND PT HAD EMESIS A COUPLE HOURS EARLIER SO PROPOFOL RESTARTED AT 15MCG.
--- NOTE | 2022-07-13 21:10 | NUR ---
ASSUMED CARE ASSUMED CARE AT 1900. PT INTUBATED AND SEDATED. PC 18/8/50%. THICK, WHITE ETT SECRETIONS. COPIOUS AMOUNTS OF ORAL SECRETIONS. PROPOFOL GTT INFUSING. SEE FLOWSHEET FOR TITRATIONS. TEMP 101.2, MEDICATED PER EMAR, OTHER VSS. GRIMACES W/ ORAL CARE. PT DID NOT OPEN EYES OR MOVE BUE TO NOXIOUS STIMULI. MOVES BLE TO TACTILE STIMULI. MOTTLING TO ALL EXTREMITIES. OGT CLAMPED. HELMS PATENT AND DRAINING TO GRAVITY.
[2022-07-14 04:02] LABS: BASOPHILS ABSOLUTE AUTO 0.07 K/mm3 (0.00-0.23); BASOPHILS PERCENT AUTO 0 % (0-2); EOSINOPHILS PERCENT AUTO 0 % (0-6); Hematocrit 45.9 % (33.0-51.0); Hemoglobin 15.5 g/dL (11.5-16.0); Mean Corpuscular HGB 32.2 pg (26.0-34.0); Mean Corpuscular HGB Conc 33.8 g/dL (31.5-36.5); Mean Corpuscular Volume 95 fL (80-100); Mean Platelet Volume 12.1 fL (9.1-12.4); NRBC ABSOLUTE 0.33 K/mm3 (0.00-0.02); NRBC Auto 1.7 /100 WBC (0.0-0.2); Platelet Count 204 K/mm3 (150-400); RDW Coefficient Variation 16.6 % (11.7-14.2); RDW Standard Deviation 52.5 fL (35.1-46.3); Red Blood Cell Count 4.81 M/mm3 (3.80-5.20)
[2022-07-14 04:08] LABS: IMMATURE GRAN ABSOLUTE AUTO 0.49 K/mm3 (0.00-0.10); IMMATURE GRAN PERCENT AUTO 3 % (0-1); LYMPHOCYTES ABSOLUTE AUTO 2.73 K/mm3 (0.84-5.20); LYMPHOCYTES PERCENT AUTO 14 % (21-46); MONOCYTES ABSOLUTE AUTO 0.92 K/mm3 (0.16-1.47); MONOCYTES PERCENT AUTO 5 % (4-13); NEUTROPHILS ABSOLUTE AUTO 15.39 K/mm3 (1.96-9.15); NEUTROPHILS PERCENT AUTO 79 % (41-73)
[2022-07-14 04:17] LABS: Bun/Creatinine Ratio 51.4 (12.0-20.0); Creatinine, Blood 1.11 mg/dL (0.40-1.00); Potassium, Blood 5.8 mmol/L (3.5-5.5)
[2022-07-14 05:16] LABS: Phosphorus, Blood 4.7 mg/dL (2.5-4.9)
[2022-07-14 05:18] LABS: PCO2 Arterial 34.9 mmHg (35-45); PO2 Arterial 85.7 mmHg (80-100); pH Blood Arterial 7.43 (7.35-7.45)
--- NOTE | 2022-07-14 06:12 | NUR ---
SHIFT SUMMARY/CALL TO MD PT REMAINS INTUBATED AND SEDATED. PC 16/8/40%. DURING BATH PT SP02 DOWN TO 72% WITH FIO2 AT 100%. PT RECOVERED SLOWLY OVER 5 MINS. MEDICATED W/ FENTANYL TWICE. SEE EMAR. PT OPENING EYES TO VERBAL STIMULI AT TIMES. NOT FOLLOWING COMMANDS OR TRACKING NURSE. OGT REMAINS CLAMPED. BT ACTIVE AT 0400 ASSESSMENT. HELMS PATENT AND DRAINING TO GRAVITY. CALL TO HOSP REGARDING MORNING LABS AND POTASSIUM. ORDERS RECEIVED FOR 5UNITS OF IV INSULIN, RECHECK AT 0900, AND TO D/C THE POTASSIUM REPLACEMENTS.
[2022-07-14 09:33] LABS: Bun/Creatinine Ratio 53.4 (12.0-20.0); Calcium, Blood 7.8 mg/dL (8.5-10.1); Creatinine, Blood 1.03 mg/dL (0.40-1.00); Potassium, Blood 5.4 mmol/L (3.5-5.5)
--- NOTE | 2022-07-14 09:38 | NUR ---
CARE OF PT ASSUMED AT 0700. PT SEDATED ON VENT WITH PROPOFOL AT 15MCG. PT MOVES HEAD AND FLUTTERS EYES, DOES NOT WAKE UP/FOLLOW COMMANDS. NO MOVEMENT NOTED TO ARMS, FEET/TOES DO MOVE. FIO2 AT 40%. VSS. TEMP 99.4. FAN ON, BLANKETS OFF. DR BENITEZ IN AROUND 0745, FULL UPDATE GIVEN. TUBE FEEDS RESTRATED PER DR BENITEZ. PROPOFOL OFF PER , WILL MEDICATE W FENT PRN FOR SEDATION, ATTEMPT TO KEEP PROPOFOL OFF PER DR BENITEZ. SPUTUM SENT. PT'S AT BEDSIDE THIS AM, UPDATE GIVEN. PT'S BROTHER AT BEDSIDE NOW.
[2022-07-14 10:26] LABS: Influenza B, PCR NEGATIVE (NEGATIVE); Resp Syncytial Virus, PCR NEGATIVE (NEGATIVE); SARS-Cov-2 (COVID-19) PCR, MMC NEGATIVE (NEGATIVE)
[2022-07-14 11:00] LABS: Influenza A, PCR POSITIVE (NEGATIVE)
--- NOTE | 2022-07-14 13:21 | NUR ---
PT'S FRIEND AT BEDSIDE, HOLDING PT'S HAND AND SPEAKING TO PT. PT WOKE UP VERY AGITATED, SITTING UP IN BED, COUGHING, GAGGING, STACKING ON VENT. SATS DROPPED TO 78%, FACE PURPLE. FENTANYL 50MCG GIVEN WHICH HELPED TO CALM PT. PT NOT RESPONSIVE TO VERBAL REDIRECTION/CALMING. STILL UNABLE TO FOLLOW COMMANDS. PT HAS REQUIRED ABOUT 50MCG FENT Q 1HR TO HELP HER LUDY VENT. DR BENITEZ CALLED AND UPDATED. FENT GTT TO BE STARTED AT 50MCG/HR. MAY USE PRN PUSHES OF FENT IF NEEDED BUT TRY TO AVOID PER DR BENITEZ. CONT TO KEEP PROPOFOL OFF. WILL KEEP STIMULATION TO A MINIMIUM FOR NOW; VISITOR NOTIFIED.
--- NOTE | 2022-07-14 17:29 | NUR ---
PT GIVEN FULL BEDBATH. PT OPENS EYES TO VOICE AND SPONT BUT DOES NOT TRACK OR FOLLOW COMMANDS. FENT SKILLS TRAINER INFUSING AT 50MCG/HR. PT GIVEN ADDITIONAL 50MCG DURING BATH; PT VERY RIGID DURING BATH W COUGHING/GAGGING. PT DESATURATED DOWN TO 78% DURING BATH BUT QUICKLY RECOVERED ONCE PLACED UPRIGHT.
--- NOTE | 2022-07-14 17:58 | NUR ---
SATS STARTING TO TREND DOWN, POSITIVE FLUID BALANCE, EDEMATOUS T/O WITH WEEPING AT IV SITES, COARSE CRACKLES T/O. DR BENITEZ CALLED W I&O'S AND OVERALL UPDATE. ALBUMIN AND LASIX GTT ORDERED.
--- NOTE | 2022-07-14 21:08 | NUR ---
ASSUMED CARE/SPO2 ASSUMED CARE AT 1900. PT INTUBATED AND SEDATED. PC 16/8/35%. RR 14-20. FENTANYL TOBY MAKER, AND LASIX GTT INFUSING. SEE FLOWSHEET. PT OPENING EYES TO VERBAL STIMULI. GRIMACES AND MOVES HEAD W/ ORAL CARE. PT DOES NOT TRACK OR FOLLOW COMMANDS. NO MOVEMENT IN BUE TO NOXIOUS STIMULI. OGT W/ TF AT 45ML/HR. HELMS PATENT AND DRAINING TO GRAVITY. APPROX 1930 SPO2 DECREASED TO 53% WITH GOOD WAVEFORM. THIS RN IN ROOM AND FIO2 TURNED TO 100%. PT GRIMACING BUT NO COUGH WAS NOTED. RT IN ROOM AND CHANGED VENT SETTINGS. 2MG ATIVAN GIVEN. SP02 68-85% W/ GOOD WAVEFORM. SPO2 PROBE CHANGED FROM FOREHEAD PROBE TO FINGER PROBE. SPO2 AT 98% W/ GOOD WAVEFORM. VENT SETTINGS CHANGED BACK TO PREVIOUS AND SPO2 95-98%.
[2022-07-15 04:27] LABS: BASOPHILS ABSOLUTE AUTO 0.13 K/mm3 (0.00-0.23); BASOPHILS PERCENT AUTO 1 % (0-2); EOSINOPHILS PERCENT AUTO 0 % (0-6); Hematocrit 45.6 % (33.0-51.0); IMMATURE GRAN ABSOLUTE AUTO 0.37 K/mm3 (0.00-0.10); IMMATURE GRAN PERCENT AUTO 2 % (0-1); LYMPHOCYTES ABSOLUTE AUTO 1.92 K/mm3 (0.84-5.20); LYMPHOCYTES PERCENT AUTO 10 % (21-46); MONOCYTES ABSOLUTE AUTO 0.98 K/mm3 (0.16-1.47); MONOCYTES PERCENT AUTO 5 % (4-13); Mean Corpuscular HGB 32.5 pg (26.0-34.0); Mean Corpuscular HGB Conc 32.9 g/dL (31.5-36.5); Mean Corpuscular Volume 99 fL (80-100); Mean Platelet Volume 12.1 fL (9.1-12.4); NEUTROPHILS PERCENT AUTO 82 % (41-73); NRBC Auto 1.1 /100 WBC (0.0-0.2); Platelet Count 207 K/mm3 (150-400); RDW Coefficient Variation 17.2 % (11.7-14.2); RDW Standard Deviation 56.7 fL (35.1-46.3); Red Blood Cell Count 4.61 M/mm3 (3.80-5.20)
[2022-07-15 04:48] LABS: Bilirubin, Direct 1.1 mg/dL (0.0-0.3); Bilirubin, Indirect 0.4 mg/dL (0.1-0.7); Bilirubin, Total 1.5 mg/dL (0.1-1.0); Bun/Creatinine Ratio 67.4 (12.0-20.0); Creatinine, Blood 0.99 mg/dL (0.40-1.00); Potassium, Blood 5.8 mmol/L (3.5-5.5)
--- NOTE | 2022-07-15 06:26 | NUR ---
SHIFT SUMMARY NO ACUTE EVENTS T/O NIGHT. PT REMAINS INTUBATED AND SEDATED. NO VENT SETTINGS. PT SPO2 GREATER THAN 90%. WITH ANY STIMULATION, PT OPEN EYES AND TRIES TO SIT UP. CALMS QUICKLY W/ NO STIMULATION. PT NOT TRACKING OR FOLLOWING COMMANDS. ATTEMPTED TO CALL DR BENITEZ W/ MORNING LABS AND MESSAGE LEFT. POTASSIUM 5.8. PT STABLE, HAVING NO ECTOPY AND WILL PASS ON IN REPORT TO ATTEMPT NOTIFICATION IN AM. OGT W/ TF AT GOAL. HELMS PATENT AND DRAINING TO GRAVITY.
--- NOTE | 2022-07-15 07:50 | NUR ---
Assumed care at approximately 0700. Pt in bed, intubated via ETT, vent settings: AC/PC 14/8,m 35%. No sedation at this time. Fentanyl [employer] MAINTENA[employer]CE TECHNICIAN infusing at 50 mcg/hr. OG tube in place, TF at 45 ml/hr, goal rate. Pt has PICC in PHAN, PG in MAT. Villalta catheter in place. No acute needs ATT, will continue to monitor.
--- NOTE | 2022-07-15 19:10 | NUR ---
ASSUMED CARE OF PT RT NOTED IN ROOM, VENT SETTINGS NOTED, PT'S VITAL SIGNS REVIEWED. PT APPEARS TO BE RESTING QUIETLY EXPRESSION RELAXED, GTTS NOTED LASIX 4 MG/HR, NS TKO X 2, AND FENTANYL AT 50 MCG/HR TO PICC IN LEFT UPPER ARM. CLEAR YELLOW URINE NOTED IN UROMETER, MORE THAN 30 ML AT THIS TIME, WILL MONITOR. TUBE FEEDING AT GOAL OF 45 ML/HR.
--- NOTE | 2022-07-15 19:24 | NUR ---
Shift summary. Pt continues ventilated, see RT notes. No acute events during shift. VS stable, report given to oncoming RN.
--- NOTE | 2022-07-16 07:51 | NUR ---
PT REMAINS NON PURPOSEFUL WHEN STIMULATION IS INCREASED. RESPONSES ARE NOTED TACHYPNEA, INCREASED COUGH, GAGGING, SHE DOES NOT FOLLOW VERBAL DIRECTIONS AT ANY TIME THIS SHIFT, SHE DOES NOT MAKE EYE CONTACT OR TRACK MOVEMENT IN ROOM. FENTANYL 50 MCG/HR CONTINUES WITH INTERMITTENT PRN FENTANYL 50 MCG IV ADJUNCT TO SEDATION, ATIVAN 2 MG IV WAS ADMINISTERED X 3. CARDIAC, CONTINUES IN SINUS TACH, RATE LOW 100S, PRESSURES MAINTAINING, PULSES TO BILAT FEET INTERMITTENTLY FAINT, OTHERWISE TO DOPPLER, EDEMA CONTINUES. TOLERATES TUBE FEEDS AT GOAL, BM X 1 EARLY THIS SHIFT, LIQUID BROWN, SMALL. TEMP PROBE HELMS REMAINS IN PLACE, 1100 ML URINE OUT THIS SHIFT, LASIX GTT CONTINUES AT 4 MG/HR. PT TURNED Q2 AND TOLERATED WELL. NO ACUTE CHANGES THIS SHIFT.
[2022-07-16 08:30] LABS: BASOPHILS ABSOLUTE AUTO 0.06 K/mm3 (0.00-0.23); BASOPHILS PERCENT AUTO 0 % (0-2); EOSINOPHILS PERCENT AUTO 0 % (0-6); Hematocrit 42.7 % (33.0-51.0); Hemoglobin 14.1 g/dL (11.5-16.0); IMMATURE GRAN ABSOLUTE AUTO 0.34 K/mm3 (0.00-0.10); IMMATURE GRAN PERCENT AUTO 2 % (0-1); LYMPHOCYTES ABSOLUTE AUTO 1.79 K/mm3 (0.84-5.20); LYMPHOCYTES PERCENT AUTO 9 % (21-46); MONOCYTES PERCENT AUTO 5 % (4-13); Mean Corpuscular Volume 100 fL (80-100); Mean Platelet Volume 12.3 fL (9.1-12.4); NEUTROPHILS ABSOLUTE AUTO 17.11 K/mm3 (1.96-9.15); NEUTROPHILS PERCENT AUTO 85 % (41-73); NRBC ABSOLUTE 0.31 K/mm3 (0.00-0.02); NRBC Auto 1.5 /100 WBC (0.0-0.2); Platelet Count 177 K/mm3 (150-400); RDW Coefficient Variation 17.7 % (11.7-14.2); RDW Standard Deviation 57.3 fL (35.1-46.3); Red Blood Cell Count 4.27 M/mm3 (3.80-5.20)
--- NOTE | 2022-07-16 08:35 | NUR ---
ASSUMED CARE: REPORT RECEIVED FROM TRINITY Owen RN. ASSUMED CARE OF THIS PT AT APPROX 0700. ON ASSESSMENT, THE PT IS RESTING QUIETLY. FENTANYL INFUSING AT 50 MCG/HR, NO OTHER SEDATION. LS COARSE T/O, PT ON VENT W/ SETTINGS: PC 14/16/6/35% W/ O2 SATS > 92%. OCCASIONAL SPONTANEOUS COUGH NOTED W/ MOD SPUTUM PRODUCTION. MONITOR SHOWS ST W/ HR 100s, BP STABLE. LASIX DRIP INFUSING AT 4 MG/HR W/ ADEQUATE URINE OUTPUT NOTED IN HELMS CATHETHER. BT NORMOACTIVE W/ VITAL HP INFUSING AT GOAL RATE OF 45 ML/HR, NO S/SX INTOLERANCE NOTED. SKIN OVERALL FRAGILE & EDEMATOUS. NUMEROUS AREAS OF SCABBING/ ABRASIONS NOTED. Q2H REPOSITIONING TO MAINTAIN SKIN INTEGRITY. WILL CONTINUE TO MONITOR & UPDATE NEEDED.
[2022-07-16 08:51] LABS: Albumin, Blood 2.7 g/dL (3.4-5.0); Anion Gap 3 mmol/L (6-16); Blood Urea Nitrogen 74 mg/dL (8-24); Bun/Creatinine Ratio 73.3 (12.0-20.0); CO2, Blood 31 mmol/L (21-32); Calcium, Blood 8.1 mg/dL (8.5-10.1); Chloride, Blood 107 mmol/L (98-108); Creatinine, Blood 1.01 mg/dL (0.40-1.00); Glomerular Filtration Rate 70 (60-); Glucose, Blood 346 mg/dL (70-99); Phosphorus, Blood 3.5 mg/dL (2.5-4.9); Potassium, Blood 4.7 mmol/L (3.5-5.5); Sodium, Blood 141 mmol/L (136-145)
--- NOTE | 2022-07-16 12:51 | NUR ---
DR THOMPSON: PROVIDER HAS BEEN AT BEDSIDE TO EVAL PT THIS SHIFT. HE WOULD LIKE CONTINUOUS FENTANYL DRIP TO BE DECREASED TO 25 MCG/HR IN AN ATTEMPT TO FURTHER WAKE THE PT. LASIX DRIP DISCONTINUED & CHANGED TO IV PUSHES & ADJUNCT DIURESIS ORDERED. VANCO ORDERED PER PHARMACY MANAGEMENT. NO OTHER CHANGES AT THIS TIME.
--- NOTE | 2022-07-16 19:08 | NUR ---
SHIFT SUMMARY: NO ACUTE CHANGES SINCE PRIOR UPDATES. PT CONTINUES TO BE UNSEDATED BUT NOT PURPOSEFUL W/ MOVEMENT. EYES OPEN BUT NOT TRACKING. PRECEDEX NOW INFUSING FOR AGITATION. LS DIM IN BASES, PT ON VENT SETTINGS: PC 14/16/6/35% W/ O2 SATS > 92%. MONITOR SHOWS ST W/ HR 100s, HTN W/ DBP 100s. OGT IN PLACE W/ TUBE FEEDS INFUSING AT GOAL RATE. BM SMEAR THIS SHIFT. HELMS PATENT/ DRAINING W/ LARGE AMNTS URINE OUTPUT THIS SHIFT, DIURESIS PER EMAR. SKIN CONDITION OVERALL INTACT, FRAGILE. Q2H REPOSITIONING TO MAINTAIN SKIN INTEGRITY. WILL CONTINUE TO MONITOR & REPORT OFF TO ONCOMING RN.
[2022-07-17 04:16] LABS: Hematocrit 42.2 % (33.0-51.0); Hemoglobin 14.3 g/dL (11.5-16.0); Mean Corpuscular HGB 33.1 pg (26.0-34.0); Mean Corpuscular HGB Conc 33.9 g/dL (31.5-36.5); Mean Corpuscular Volume 98 fL (80-100); Mean Platelet Volume 12.5 fL (9.1-12.4); NRBC ABSOLUTE 0.11 K/mm3 (0.00-0.02); NRBC Auto 0.4 /100 WBC (0.0-0.2); Platelet Count 141 K/mm3 (150-400); RDW Coefficient Variation 18.2 % (11.7-14.2); Red Blood Cell Count 4.32 M/mm3 (3.80-5.20); White Blood Cell Count 25.18 K/mm3 (4.00-11.30)
[2022-07-17 05:00] LABS: Bun/Creatinine Ratio 56.7 (12.0-20.0); Calcium, Blood 7.9 mg/dL (8.5-10.1); Creatinine, Blood 1.34 mg/dL (0.40-1.00); Potassium, Blood 3.9 mmol/L (3.5-5.5)
--- NOTE | 2022-07-17 05:51 | NUR ---
PT RESTS QUIETLY THROUGHOUT SHIFT, CONTINUES WITH RANDOM MOVEMENT OF EXTREMITIES WITHOUT FOLLOWING DIRECTIONS, MOVEMENTS DO NOT APPEAR PURPOSEFUL OF THIS TIME. OCCASIONAL SPONTANEOUS EYE OPENING HOWEVER DOES NOT TRACK OR MAKE EYE CONTACT. INTERMITTENT INCREASES IN RESPIRATION RATE HAVE BEEN NOTED DURING PERIODS WHERE PT'S EYES ARE OPEN, UP TO LOW 40S, INCREASED COUGH IS NOTED AT THESE TIMES WELL, SUCTIONING ETT IS PRODUCTIVE OF THICK WHITE/YELLOW SPUTUM IN MODERATE AMOUNTS HOWEVER THIS DOES NOT REDUCE COUGH OR RESPIRATORY RATE. FENTANYL AND ATIVAN IV HAVE BEEN USED WITH GOOD CONTROL OF AGITATION/RESTLESSNESS AND TACHYPNEA. PT TEMP ELEVATED TO 101.6 THIS SHIFT AND TYLENOL 650 MG WAS ADMIN VIA OG TUBE, TEMP HAS CONTINUED TO INCREASE, 102.2 OF THIS TIME, WILL CONT TO MONITOR, BLANKETS REMOVED AND FAN ON PT. VENT SETTINGS CONT WITHOUT SIGNIFICANT CHANGES THIS SHIFT, FIO2 BETWEEN 35 AND 40, SATS HAVE REMAINED IN THE 90S THROUGHOUT NOC. COLOR IS SLIGHTLY IMPROVED AND PULSES ARE GREATLY IMPROVED TO FEET BILAT, EDEMA IS NOTED IMPROVING. PICC LINE DRESSING WAS CHANGED THIS AM DUE TO LEAKING NEAR INSERTION SITE. PT TOLERATED WELL.
--- NOTE | 2022-07-17 08:59 | NUR ---
ASSUMED CARE REPORT FROM TRINITY MATOS AT 0700. PT INTUBATED AND SEDATED. VENT SETTINGS PC 14/16/6/40%. LUNGS CLEAR. SMALL THICK WHITE SECRETIONS FROM ETT. PRECEDEX AND FENTANYL GTT FOR PAIN AND SEDATION. PT HAS OCCASIONAL EPISODES OF TACHYPENIA, RESOLVED c ATIVAN IVP. PT GRIMACES c ORAL CARE. DOES NOT WITHDRAW EXT TO PAIN. DOES NOT FOLLOW COMMANDS. PUPILS PINPOINT. COUGH/GAG/SWALLOW REFLEX PRESENT. SR, RATE 70'S. BP STABLE. ANASCARCA, 3+ EDEMA TO ALL EXT. FAINT PULSES, DELAYED CAP REFILL, MOTTLING TO KNEES, HAND, BLE. ABD DISTENDED, SOFT, HYPOACTIVE BT. HELMS PATENT, DRAINING CLEAR YELLOW URINE TO GRAVITY. PICC TO JAMES, TRISTIN JAY, DRESSINGS C/D/I. WILL CONTINUE TO MONITOR.
--- NOTE | 2022-07-17 18:13 | NUR ---
SHIFT SUMMARY NO ACUTE CHANGES THIS SHIFT. REMAINS INTUBATED, VENT SETTINGS UNCHANGED, PC 14/16/6/40%. LUNGS DIM IN BASES. SCANT SECRETIONS FROM ETT. SR, RATE 70-80'S. BP STABLE. PRECEDEX AND FENTANYL FOR PAIN AND SEDATION. ATTEMPTED TO DECREASED PRECEDEX, RR INCREASED AND NON COMPLIANT c VENT. INCREASED PRECEDEX AND FENTANYL AND ATIVAN GIVEN PRN. TUBE FEEDS CHANGED TO PIVOT. ABD DISTENDED, SOFT, HYPOACTIVE BT. HELMS PATENT, DRAINED 2700 ML CLEAR YELLOW URINE TO GRAVITY. CONTINUES TO HAVE ANASCARSA c 3+ EDEMA TO EXT. PICC TO LUE, POWERGLIDE TO RUE, DRESSINGS C/D/I. WILL CONTINUE TO MONITOR UNTIL REPORT TO ONCOMING NURSE.
--- NOTE | 2022-07-17 19:00 | NUR ---
ASSUMED CARE OF PT AT 1900 INTUBATED AND SEDATED. FENT AND PROP. NO PURPOSEFUL MOVEMENTS. SPONTANIOUS EYE OPENING WITH NO TRACKING OR EYE CONTACT. AND RANDOM BLE MOVEMENTS WITH TOUCH IN PEDAL AREAS. INTERMITENT SHOULDER MOVEMENTS WELL. SMALL AMOUNT OF SECRETIONS SUCTIONED WITH THICK WHITE/POWERS SPUTUM. BP 143/97 HR 70'S, MOTTLING KYRA AND BLE THAT HAS IMPROVED. TEMP 100.4 WITH IMPROVMENT OF REPORT OF DAYSHIFT FEBRILE EPISODE TREATED WITH TYLENOL. HELMS DRAINING TO GRAVITY. REPORT OF LOOSE STOOLS ON PREVIOUS MANAGER PLANNING. SEE FULL ASSESSMENT FOR FURTHER INFORMATION.
[2022-07-18 00:37] LABS: Vancomycin, Trough 16.8 ug/mL (5.0-10.0)
[2022-07-18 03:33] LABS: BASOPHILS ABSOLUTE AUTO 0.04 K/mm3 (0.00-0.23); BASOPHILS PERCENT AUTO 0 % (0-2); EOSINOPHILS PERCENT AUTO 0 % (0-6); Hematocrit 38.4 % (33.0-51.0); Hemoglobin 13.3 g/dL (11.5-16.0); IMMATURE GRAN ABSOLUTE AUTO 0.23 K/mm3 (0.00-0.10); IMMATURE GRAN PERCENT AUTO 1 % (0-1); LYMPHOCYTES ABSOLUTE AUTO 1.86 K/mm3 (0.84-5.20); LYMPHOCYTES PERCENT AUTO 8 % (21-46); MONOCYTES ABSOLUTE AUTO 1.23 K/mm3 (0.16-1.47); MONOCYTES PERCENT AUTO 6 % (4-13); Mean Corpuscular HGB 33.4 pg (26.0-34.0); Mean Corpuscular HGB Conc 34.6 g/dL (31.5-36.5); Mean Corpuscular Volume 97 fL (80-100); Mean Platelet Volume 12.7 fL (9.1-12.4); NEUTROPHILS ABSOLUTE AUTO 19.04 K/mm3 (1.96-9.15); NEUTROPHILS PERCENT AUTO 85 % (41-73); NRBC ABSOLUTE 0.02 K/mm3 (0.00-0.02); NRBC Auto 0.1 /100 WBC (0.0-0.2); Platelet Count 127 K/mm3 (150-400); RDW Coefficient Variation 18.2 % (11.7-14.2); Red Blood Cell Count 3.98 M/mm3 (3.80-5.20)
[2022-07-18 03:57] LABS: International Normalized Ratio 1.42; Prothrombin Time Results 14.6 Sec (9.7-11.5)
[2022-07-18 04:56] LABS: Albumin, Blood 2.1 g/dL (3.4-5.0); Anion Gap 6 mmol/L (6-16); Blood Urea Nitrogen 56 mg/dL (8-24); Bun/Creatinine Ratio 78.7 (12.0-20.0); CO2, Blood 36 mmol/L (21-32); Chloride, Blood 104 mmol/L (98-108); Creatinine, Blood 0.71 mg/dL (0.40-1.00); Glomerular Filtration Rate 107 (60-); Glucose, Blood 317 mg/dL (70-99); Phosphorus, Blood 2.5 mg/dL (2.5-4.9); Potassium, Blood 2.4 mmol/L (3.5-5.5); Sodium, Blood 146 mmol/L (136-145)
--- NOTE | 2022-07-18 06:16 | NUR ---
END OF SHIFT SUMMARY PT INTUBATED AND ON PRESEDEX 0.7 THROUGHOUT SHIFT. DOES NOT FOLLOW COMMANDS. STARTLE REFLEXES SHOWN. PT OPENS EYES AND PULLS AWAY FROM ORAL TREATMENTS. MOVEMENT OF BUE AND BLE RANDOMLY. BP AND HR STABLE. SWELLING IMPROVING BUT NOT RESOLVED. CRITICAL POTASSIUM RESULTS THIS AM. 20 MEQ X3 TREATMENTS ORDERED THROUGHOUT AM. LUNG SOUNDS CLEAR WITH DIMINISHED BASES BILATERALLY. SPO2 AT 92 WITH VENT. PT DOES NOT TOLERATE VENT WELL. MANY EPISODES OF GAG AND COUGHING WITH HEAD TURNING SIDE TO SIDE CONSISTANTLY. CBG RESULTS IN UPPER 200'S THIS SHIFT WITH INSULIN COVERAGE. SIGNIFICANT URINE OUTPUT AFTER LASIX TREATMENT. 4000 URINE OUT. NO BM THIS SHIFT. NO FAMILY OR VISITORS THIS SHIFT. WILL CONTINUE TO MONITOR PT UNTIL REPORT GIVEN TO FREEMAN MATOS.
--- NOTE | 2022-07-18 08:00 | NUR ---
PT OPENS EYES TO VOICE, BUT NOT TRACKING OR FOLLOWING COMMANDS. PT MOVES ALL EXTREMITES AND PULLS OR RESTRAINTS. PRECEDEX DRIP @ 0.7 MCG/KG/MIN AND FENTANYL CONTINUOUS @ 25 MCG/HR. ECG SHOWS SR WITH RATE 70'S. TEMP 100.8. SBP 110'S. HANDS AND LOWER EXTREMITIES MOTTLED. DP/PT PER DOPPLER. EDEMA CONTINUES THROUGH OUT-UPPER EXTREMITES WEEPING. LASIX HELD K+ REPLETION INFUSING. LUNGS DIMINISHED IN THE BASES, BUT PT MAINTAINS SATS>90% ON VENT:PC-14/16/6/40% RR 30'S WITH STIMULI AND PT BEGINS TO STACK HER BREATHS. TOLERATING OGTF @ 40 CC/HR WELL. HELMS TO BSD WITH ADEQUATE AMOUNT OF CLEAR, YELLOW URINE OUTPUT. SKIN IS GENERALLY DUSKY, BUT OVERALL C/D/I. RIGHT KNEE SCAB MERARY. PT S/O JAYCE IN FOR VISIT-UPDATE GIVEN.
--- NOTE | 2022-07-18 10:00 | NUR ---
PT INCONTINENT OF XTRA LARGE, EXPLOSIVE LOOSE STOOL. PARTIAL BATH AND LINEN CHANGE COMPLETED. RECTAL TUBE PLACED.
--- NOTE | 2022-07-18 12:20 | NUR ---
PT AGITATED, RESTLESS, AND NON-COMPLIANT WITH VENT.PT OPENS EYES, BUT STILL NOT TRACKING OR FOLLOWING COMMANDS. PRECEDEX DRIP CONTINUES @ 0.7 MCG/KG/MIN. FENTANYL CONTINUOUS INCREASED TO 50 MCG/HR. PT MED WITH ATIVAN 2 MG IVP X 1. RR 32-40'S AND PT STACKING BREATHS. ETT SUCTION PRODUCTIVE OF MODERATE AMOUNT OF THICK, POWERS SECRETIONS. ECG CONTINUES SR WITH RATE 70'S. BP STABLE. EDEMA CONTINUES. TEMP 101.3-FAN PLACED AND PT MED WITH TYLENOL PER OGT-SEE EMAR. PT TOLERATING OGTF WELL. RECTAL TUBE CONTINUES TO DRAIN A MODERATE AMOUNT OF BROWN LIQUID STOOL.
--- NOTE | 2022-07-18 15:13 | NUR ---
PT SISTER KERMIT AT BEDSIDE. UPDATE GIVEN. PT NOT TRACKING HER VOICE AND RR 40'S. PT GRIMACING AND APPEARS AGITATED. MED WITH ATIVAN 2 MG IVP X 1.
--- NOTE | 2022-07-18 18:20 | NUR ---
NO ACUTE NEURO CHANGES THIS SHIFT. PT APPEARS AGITATED AT TIMES DESPITE PRECEDEX DRIP @ 0.7 MCG/KG/MIN AND FENTANYL CONTINOUS @ 50 MCG/HR. PT OPENS HER EYES TO VOICE, BUT DOES NOT TRACK OR FOLLOW COMMANDS. PT GRIMACES WITH ORAL CARE AND NOXIOUS STIMULI. RR UP TO 30-40'S WITH AGITATION. MED WITH ATIVAN 2 MG IVP SEDATION ADJUNCT AND PT RR 12-22. MAINTAINS SATS>90% ON FIO2 40% CBG Q6 HOURS TRENDING IN THE 300'S AND COVERED PER SLIDING SCALE. LASIX HELD THIS AM K+ REPLETION WAS NOT COMPLETED. LASIX DOSING CHANGED BY AND ADDITIONAL SCHEDULED K+ REPLETION PER OGT.
--- NOTE | 2022-07-18 18:42 | NUR ---
PT AWAKE, GRIMACING, AND AGITIATED. RR 38 AND PT STACKING BREATHS ON VENT. PT TRACKING AND FOLLOWED COMMANDS TO BOTH CLOSE HER EYES AND AIR BAG BUILDER WITH THE RIGHT HAND. PT MED WITH ATIVAN 2 MG IVP X 1 FOR AGITATION- SEE EMAR.
--- NOTE | 2022-07-18 21:27 | NUR ---
ASSUMPTION OF CARE/ASSESSMENT: ASSUMED CARE OF PT AT 1900; PT IS INTUBATED AND SEDATED AT THIS TIME. PRECEDEX GTT @ 0.9 MCG AND VENT SETTINGS PC; PI-14, RATE-16, FIO2 50%, PEEP -6.0, RR 14-16 AND SPO2 92<. PT HAS CLEAR UPPER LOBES BILATERALLY AND DIM BASES. PT BECOMES VERY TACHYPNEIC/HYPERVENTILATES WHEN STIMULATED DURING PT CARE/TURNS. PT IS RESPONSIVE TO VERBAL STIMULI BUT NOT FOLLOWING COMMANDS AT THIS TIME. PT IS BILAT. SWR AND IS NOT PULLING. PT IS COOPERATIVE WITH ORAL CARE. PT HR 60'S, SBP 120'S, AND IN SR ON MONITOR. HYPOACTIVE BS IN ALL QUADRANTS; ABD MILDLY DISTENDED AND FIRM. OGT IN PLACE AND PIVOT 1.5 INFUSING AT 40MLS/HR (GOAL RATE). RECTAL TUBE PLACED LAST SHIFT AND IT IS DRAING TO GRAVITY; LIQUID, BROWN STOOL IN COLLECTION BAG. TEMP HELMS IN PLACE AND DRAINING TO GRAVITY. PT SKIN COOL TO TOUGH BUT FEBRILE @ 100.1. PT SKIN ROUGH AND VERY EDEMATOUS. PT HAS MOTTLING TO BLE AND BUE. WILL CONTINUE TO MONITOR.
[2022-07-19 04:09] LABS: BASOPHILS ABSOLUTE AUTO 0.03 K/mm3 (0.00-0.23); BASOPHILS PERCENT AUTO 0 % (0-2); EOSINOPHILS PERCENT AUTO 0 % (0-6); Hematocrit 41.8 % (33.0-51.0); Hemoglobin 13.9 g/dL (11.5-16.0); IMMATURE GRAN ABSOLUTE AUTO 0.14 K/mm3 (0.00-0.10); IMMATURE GRAN PERCENT AUTO 1 % (0-1); LYMPHOCYTES ABSOLUTE AUTO 1.35 K/mm3 (0.84-5.20); LYMPHOCYTES PERCENT AUTO 6 % (21-46); MONOCYTES ABSOLUTE AUTO 1.13 K/mm3 (0.16-1.47); MONOCYTES PERCENT AUTO 5 % (4-13); Mean Corpuscular HGB Conc 33.3 g/dL (31.5-36.5); Mean Corpuscular Volume 99 fL (80-100); NEUTROPHILS ABSOLUTE AUTO 20.39 K/mm3 (1.96-9.15); NEUTROPHILS PERCENT AUTO 89 % (41-73); Platelet Count 127 K/mm3 (150-400); RDW Coefficient Variation 19.2 % (11.7-14.2); RDW Standard Deviation 62.3 fL (35.1-46.3); Red Blood Cell Count 4.21 M/mm3 (3.80-5.20); White Blood Cell Count 23.04 K/mm3 (4.00-11.30)
[2022-07-19 04:33] LABS: Albumin, Blood 2.3 g/dL (3.4-5.0); Anion Gap 3 mmol/L (6-16); Blood Urea Nitrogen 44 mg/dL (8-24); Bun/Creatinine Ratio 59.5 (12.0-20.0); CO2, Blood 39 mmol/L (21-32); Calcium, Blood 7.7 mg/dL (8.5-10.1); Chloride, Blood 103 mmol/L (98-108); Creatinine, Blood 0.74 mg/dL (0.40-1.00); Glomerular Filtration Rate 102 (60-); Glucose, Blood 342 mg/dL (70-99); Phosphorus, Blood 2.4 mg/dL (2.5-4.9); Potassium, Blood 3.1 mmol/L (3.5-5.5); Sodium, Blood 145 mmol/L (136-145)
--- NOTE | 2022-07-19 05:46 | NUR ---
SHIFT SUMMARY: NO ACUTE CHANGES THIS SHIFT. PT REMAINS INTUBATED AND SEDATED WITH PRECEDEX GTT @ 1.3 MCG AND VENT SETTINGS PC, PI-14, PEEP- 6, RATE-16, FIO2- 45%, RR 16-18, AND SPO2 92<. PT CONTINUES TO HAVE EPSIODES OF AGGITATION/ANXIETY WHEN STIMULATED AND BECOMES VERY TACHYPNEIC AND TAKING IN LOW TIDAL VOLUMES; PT MEDICATED WITH ATIVAN AND FENTANYL PER EMAR TO HELP WITH AGGITATION, ANXIETY AND VENTILATOR COMPLIANCE. COMPLETE CHG BATH AND LINEN CHANGE THIS SHIFT. AM LABS RESULTS OF LOW POTASSIUM @3.1; PRETTI NOTIFIED AND VERBAL ORDERS TO GIVE 0900 POTASSIUM CHLORIDE EARLY, SEE EMAR. 50ML OUTPUT FROM RECTAL TUBE. WILL CONTINUE TO MONITOR UNTIL ONCOMING RN ARRIVES.
--- NOTE | 2022-07-19 17:28 | NUR ---
PROVIDER UPDATE: Dr Alonso called and notified of lab results and EKG. Telehone order for potassium.
--- NOTE | 2022-07-19 18:35 | NUR ---
SHIFT SUMMARY: NEURO: pt received four doses of PRN ativan and two doses of PRN fentanyl. Her sedation was changed from precedex to propofol due to bradycardia. She is tolerating the propofol well. Spontaneous movement of bilateral feet noted and purposful movement of LUE. One does of tylenol given for fever. CARDIAC: sinus bradycardia currently. BP's trending down slightly as well. RESPIRATORY: pt tolerated PS for several hours but was transitioned back due to hypoxia. GI/: minimal rectal tube output. alatorre patent and draining to gravity. SKIN: no new breakdown PSYCH: anxious
--- NOTE | 2022-07-19 19:15 | NUR ---
ASSUMED CARE OF PT @1900 FROM JARET MATOS. PT SEDATED AND INTUBATED. PROPOFOL 20MCG/KG/MIN. ETT 7.5, 23@TEETH. VENT PC 14 16/6 FIO2 45%. OG TF PIVOT 1.5 AT GR 40MLS/HR. HR 60'S, RR 20'S, SPO2 >92%, SBP 100-110. PG MAT PATENT W/SALINE LOCK. PICC PHAN PATENT AND INFUSING W/3CM EXPOSED. FENTANYL MAIL DISTRIBUTOR 50MCG/HR, TKO 10MLS/HR. HELMS CATH PATENT AND DRAINING YELLOW URINE TO GRAVITY, RECTAL TUBE DRAINING LIQUID BROWN STOOLS TO GRAVITY. BSWR IN PLACE.
[2022-07-20 03:53] LABS: BASOPHILS ABSOLUTE AUTO 0.02 K/mm3 (0.00-0.23); BASOPHILS PERCENT AUTO 0 % (0-2); EOSINOPHILS PERCENT AUTO 0 % (0-6); Hematocrit 39.4 % (33.0-51.0); Hemoglobin 12.9 g/dL (11.5-16.0); IMMATURE GRAN ABSOLUTE AUTO 0.13 K/mm3 (0.00-0.10); IMMATURE GRAN PERCENT AUTO 1 % (0-1); LYMPHOCYTES PERCENT AUTO 7 % (21-46); MONOCYTES ABSOLUTE AUTO 1.03 K/mm3 (0.16-1.47); MONOCYTES PERCENT AUTO 5 % (4-13); Mean Corpuscular HGB 32.8 pg (26.0-34.0); Mean Corpuscular HGB Conc 32.7 g/dL (31.5-36.5); Mean Corpuscular Volume 100 fL (80-100); Mean Platelet Volume 12.8 fL (9.1-12.4); NEUTROPHILS ABSOLUTE AUTO 18.92 K/mm3 (1.96-9.15); NEUTROPHILS PERCENT AUTO 88 % (41-73); Platelet Count 100 K/mm3 (150-400); RDW Coefficient Variation 18.6 % (11.7-14.2); RDW Standard Deviation 64.8 fL (35.1-46.3); Red Blood Cell Count 3.93 M/mm3 (3.80-5.20)
[2022-07-20 04:10] LABS: Anion Gap 4 mmol/L (6-16); Blood Urea Nitrogen 40 mg/dL (8-24); Bun/Creatinine Ratio 59.9 (12.0-20.0); CO2, Blood 39 mmol/L (21-32); Calcium, Blood 7.8 mg/dL (8.5-10.1); Chloride, Blood 104 mmol/L (98-108); Creatinine, Blood 0.67 mg/dL (0.40-1.00); Glomerular Filtration Rate 110 (60-); Glucose, Blood 309 mg/dL (70-99); International Normalized Ratio 1.19; Phosphorus, Blood 2.4 mg/dL (2.5-4.9); Potassium, Blood 3.2 mmol/L (3.5-5.5); Prothrombin Time Results 12.4 Sec (9.7-11.5); Sodium, Blood 147 mmol/L (136-145)
--- NOTE | 2022-07-20 04:25 | NUR ---
UPDATE PHONE CALL TO DR MIDDLETON RE: POTASSIUM 3.2. ORDERS RECIEVED FOR REPLACEMENT.
--- NOTE | 2022-07-20 06:03 | NUR ---
SUMMARY NEURO/PSYCH/MOBILITY: PT SEDATED W/PROPOFOL 30MCG/KG/MIN. HAVING EPISODES OF ANXIETY AND RESTLESSNESS THROUGHOUT SHIFT. PT ON FENTANYL BUSINESS SERVICES TECH WELL PRN PUSHES OF FENTANYL AND ATIVAN FOR ANXIETY. PT RESTS AND IS COMPLIANT W/VENT AFTER MEDICATIONS GIVEN. PT WILL OPEN EYES TO VERBAL STIMULI BUT DOES NOT TRACK OR FOLLOW DIRECTIONS. PT WILL GRIMACE IN RESPONSE TO QUESTIONS AND NOXIOUS STIMULI. MOVES LEGS SPONTANEOUSLY AND OCCASIONALLY PULLS WEAKLY AGAINST RESTRAINT W/LEFT ARM. PT MAX ASSIST FOR ALL ADL'S. PERRL. TMAX 100.2 TREATED W/TYLENOL, ICE PACKS, AND FAN. BSWR IN PLACE. RESP: VENT PC RATE 14, 16/6, FIO2 45%. LUNGS SLIGHTLY COARSE AND DIM AT BASES. SMALL AMOUNTS OF BLOOD TINGED SECRETIONS SUCTIONED FROM ETT. SPUTUM CULTURE SENT. PT STACKING BREATHS WHEN ANXIOUS AND COMPLIANT AFTER FENTANYL/ATIVAN PRN GIVEN. RR 14-30'S, SPO2 >92%. CARDIAC: HR 60-70'S, BP STABLE THROUGH SHIFT. MAP >65. PULSES WEAK IN ALL EXTREMETIES. GENERALIZED EDEMA NOTED. GI: OG TF PIVOT 1.5 @40MLS/HR GR. RECTAL TUBE PATENT AND DRAINING LIQUID BROWN STOOLS TO GRAVITY. HYPERACTIVE BOWEL TONES THROUGHOUT. : TEMP HELMS PATENT AND DRAINING YELLOW URINE TO GRAVITY. 2300MLS OUTPUT. SKIN: ASSESSMENT REMAINS UNCHANGED. IV: PICC PHAN INFUSING. PG MAT SALINE LOCK LABS: POTASSIUM 3.2. REPLACING.
--- NOTE | 2022-07-20 08:40 | NUR ---
ASSUMED CARE REPORT FROM KAILEE/ANDREZ RN AT 0700. PT INTUBATED AND SEDATED. VENT SETTINGS PC 14 16/6/40%. LUNGS COARSE. SMALL THICK BLOOD STREAKED SPUTUM. PROPOFOL AND FENTANYL GTT FOR SEDATION AND PAIN. PROPOFOL PLACED ON STANDBY FOR SEDATION VACATION. PT OPENS EYES SPONT. DOES NOT TRACK. DOES NOT FOLLOW COMMANDS. INCREASED RR, COUGHING, NON COMPLIANT c VENT. PROPOFOL RESTARTED. COUGH/GAG/SWALLOW REFLEX PRESENT. DOES NOT WITHDRAW EXT TO PAIN. SR, RATE 70'S. BP STABLE. REDNESS NOTED TO KNEES, NO MOTTLING NOTED. 2+ EDEMA TO ALL EXT, ANASCARSA. ABD ROUND, DISTENDED. BT X 4. TUBE FEEDS AT GOAL, 40 ML/HR c 30 ML FLUSH q4 HR. RECTAL TUBE IN PLACE, DRAINING LIQUID BROWN STOOL TO GRAVITY. HELMS PATENT, DRAINING CLEAR YELLOW URINE TO GRAVITY. PT AFEBRILE. COOLING BLANKET REMOVED. PICC TO LUE, POWERGLIDE TO RUE, DRESSINGS C/D/I. WILL CONTINUE TO MONITOR.
--- NOTE | 2022-07-20 18:13 | NUR ---
SHIFT SUMMARY NO ACUTE CHANGES THIS SHIFT. REMAINS INTUBATED AND SEDATED. VENT SETTINGS PC 14 16/6/45%. LUNGS COARSE. THICK YELLOW, BLOOD TINGED SECRETIONS FROM ETT. PROPOFOL AND FENTANYL GTT FOR PAIN. COUGH/GAG/SWALLOW REFLEX. OPENS EYES SPONT. DOES NOT FOLLOW COMMANDS. ATIVAN PRN GIVEN FOR ANXIETY AND VENT COMPLIANCE. TUBE FEEDS CONTINUE AT GOAL. RECTAL TUBE IN PLACE, 300 ML BROWN LIQUID STOOL OUT. HELMS DRAINING TO GRAVITY, 1300 ML OUT. ANASCARSA CONTINUES. WILL CONTINUE TO MONITOR UNTIL REPORT TO ONCOMING NURSE.
--- NOTE | 2022-07-20 21:15 | NUR ---
ASSUMED CARE AT 1900 PT LAYING IN BED INTUBATED AND SEDATED. VENT SETTINGS AC/PC 14, 16/6, FIO2 55%; RR VERY EASILY INCREASED TO >30 WHEN STIMULATED BUT IS ABLE TO COME BACK DOWN TO HIGH TEENS. PT SEDATED WITH PROPOFOL INFUSING AT 45MCG/KG/MIN; FENTANYL INFUSING AT 25MCG/HR; SHE WILL SPONTANIOUSLY OPEN EYES, MOVE HEAD, AND WILL WITHDRAWL FROM ORAL CARE; DOES NOT FOLLOW DIRECTION OR ANSER Y/N QUESTIONS. AFEBRILE. HR 90'S. BP STABLE, SBP 110'S. PIVOT INFUSING VIA OG AT 40ML/HR (GOAL) WITH 30ML WATER FLUSHES Q4HR. RECTAL TUBE AND HELMS IN PLACE AND DRAINING TO GRAVITY. PICC TO PHAN PATENT AND INFUSING MEDS; POWERGLIDE TO MAT PATENT AND SALINE LOCKED. SEE SHIFT ASSESSMENT FOR FULL ASSESSMENT.
[2022-07-21 04:25] LABS: BASOPHILS ABSOLUTE AUTO 0.02 K/mm3 (0.00-0.23); BASOPHILS PERCENT AUTO 0 % (0-2); EOSINOPHILS ABSOLUTE AUTO 0.01 K/mm3 (0.00-0.68); EOSINOPHILS PERCENT AUTO 0 % (0-6); Hematocrit 41.3 % (33.0-51.0); Hemoglobin 13.6 g/dL (11.5-16.0); IMMATURE GRAN ABSOLUTE AUTO 0.14 K/mm3 (0.00-0.10); IMMATURE GRAN PERCENT AUTO 1 % (0-1); LYMPHOCYTES ABSOLUTE AUTO 1.57 K/mm3 (0.84-5.20); LYMPHOCYTES PERCENT AUTO 7 % (21-46); MONOCYTES ABSOLUTE AUTO 0.97 K/mm3 (0.16-1.47); MONOCYTES PERCENT AUTO 4 % (4-13); Mean Corpuscular HGB 32.5 pg (26.0-34.0); Mean Corpuscular HGB Conc 32.9 g/dL (31.5-36.5); Mean Corpuscular Volume 99 fL (80-100); NEUTROPHILS PERCENT AUTO 88 % (41-73); Platelet Count 70 K/mm3 (150-400); RDW Coefficient Variation 18.7 % (11.7-14.2); RDW Standard Deviation 64.9 fL (35.1-46.3); Red Blood Cell Count 4.18 M/mm3 (3.80-5.20); White Blood Cell Count 22.31 K/mm3 (4.00-11.30)
[2022-07-21 04:31] LABS: Mean Platelet Volume 13.8 fL (9.1-12.4)
[2022-07-21 04:36] LABS: Albumin, Blood 2.4 g/dL (3.4-5.0); Albumin/Globulin Ratio 0.8 (0.8-1.8); Bilirubin, Total 1.6 mg/dL (0.1-1.0); Bun/Creatinine Ratio 57.3 (12.0-20.0); Calcium, Blood 8.2 mg/dL (8.5-10.1); Creatinine, Blood 0.68 mg/dL (0.40-1.00); Globulin, Blood 3.2 g/dL (2.2-4.0); Magnesium, Blood 1.8 mg/dL (1.6-2.4); Phosphorus, Blood 2.8 mg/dL (2.5-4.9); Potassium, Blood 3.5 mmol/L (3.5-5.5); Total Protein, Blood 5.6 g/dL (6.4-8.2)
--- NOTE | 2022-07-21 06:20 | NUR ---
END OF SHIFT SUMMARY NO ACUTE EVENTS OVERNIGHT. PT CONT TO BE SEDATED WITH PROPOFOL INFUSING AT 45MCG/KG/MIN AND FENTANYL AT 25MCG/HR; CONT TO SPONTANIOUSLY OPEN EYES, GRIMICES WITH ORAL CARE, AND NOT FOLLOW DIRECTIONS; PURPOSEFUL MOVEMENT NOTED ONCE WHEN PATIENT REACHED FOR THE ETT WITH HE LT HAND; PROFOUNDLY WEAK. CONT TO BE INTUBATED WITH VENT SETTINGS AC/PC 14, 16/6, FIO2 45%. AFEBRILE. HR 80-100. SBP 110-120. PIVOT CONT TO INFUSE AT GOAL VIA OG. RECTAL TUBE IN PLACE WITH 200ML OUTPUT. HELMS IN PLACE WITH 2100ML OUTPUT. CONT TO HAVE MOTTLING ON HER KNEES. WILL REPORT TO AM RN WHEN AVAILABLE.
--- NOTE | 2022-07-21 08:50 | NUR ---
ASSUMED CARE BEDSIDE REPORT FROM ANDREZ MATOS AT 0700. PT INTUBATED AND SEDATED. VENT SETTINGS PC 14 16/6/45%. LUNGS COARSE IN BASES, CLEAR IN UPPER LOBES. SMALL AMOUNT OF YELLOW BLOOD STREAKED SECRETIONS FROM ETT, SMALL AMOUNT OF THICK POWERS ORAL SECRETIONS. PROPOFOL AND FENTANYL GTT FOR SEDATION AND PAIN. PT OPENS EYES SPONT, DOES NOT TRACK. DOES NOT FOLLOW COMMANDS OR WITHDRAW FROM PAINFUL STIMULI. GRIMACES c CARE. SR, RATE 80'S. BP STABLE. 2+ EDEMA TO ALL EXT, IMPROVED SINCE YESTERDAY DAY SHIFT. CONTINUES TO HAVE DISCOLORATION AT KNEES. SKIN WARM, DRY. ABD DISTENDED, NON TENDER. BT X 4. TUBE FEEDS AT GOAL. RECTAL TUBE IN PLACE, LIQUID BROWN STOOOL OUT. HELMS PATENT, DRAINING BRODIE URINE TO GRAVITY. PICC TO LUE, POWERGLIDE TO RUE, DRESSINGS C/D/I. WILL CONTINUE TO MONITOR.
--- NOTE | 2022-07-21 18:20 | NUR ---
SHIFT SUMMARY REMAINS INTUBATED AND SEDATED. HAS BEEN ON OPEN ENDED SBT SINCE APPROX 1100. SPONT 14/6/40% c TV 450'S. LUNGS CLEAR. DECREASED SECRETIONS FROM ETT, THIN, CLEAR/POWERS. PROPOFOL AND FENTANYL GTT FOR SEDATION, ATIVAN GIVEN PRN FOR TACHYPENIA AND VENT COMPLIANCE. PT OPENS EYES SPONT, APPEARS TO BE MAKING EYE CONTACT. DOES NOT TRACK. CRYING WHEN SISTER WAS IN ROOM HUGGING PT. DOES NOT WITHDRAW FROM PAINFUL STIMULI. + BC THIS SHIFT. PICC REMOVED, PETROLEUM GAUZE PLACED. PLAN FOR RAVI TOMORROW OR FOLLOWING DAY. SR, RATE 90'S. BP STABLE. EDEMA CONTINUES. TUBE FEEDS AT GOAL, RECTAL TUBE IN PLACE, 200 ML OUT. HELMS PATENT, DRAINING TO GRAVITY, [address] CHARISSA EDUARDO OVER PHONE FOR RAVI. WILL CONTINUE TO MONITOR UNTIL REPORT TO ONCOMING NURSE.
--- NOTE | 2022-07-21 19:41 | NUR ---
PATIENT INTUBATED AND SEDATED WITH PROPOFOL 45 MCG AND FENTANYL 25 MCG/HR. OPENS EYES TO STIMULI, AT TIMES HOLDING EYE CONTACT. NOT FOLLOWING DIRECTIONS. RESP 20'S THEN INCREASING UP TO 40'S THEN QUICKLY BACK DOWN TO 20'S. NOT ALWAYS AFFECTED BY STIMULI IN THE ROOM. VENT SPONT 14/6 FIO2 40% . OG IN PLACE WITH PIVOT 1.5 AT GOAL RATE OF 40 CC/HR. RECTAL TUBE IN PLACE DRAINING LIQUID BROWN STOOL.
--- NOTE | 2022-07-21 21:00 | NUR ---
DOCTOR DONNA GIVEN UPDATE. PLAN TO HOLD TUBE FEEDING 07/22 AT 0300 FOR RAVI TOMORROW
[2022-07-22 05:01] LABS: BASOPHILS ABSOLUTE AUTO 0.02 K/mm3 (0.00-0.23); BASOPHILS PERCENT AUTO 0 % (0-2); EOSINOPHILS ABSOLUTE AUTO 0.18 K/mm3 (0.00-0.68); EOSINOPHILS PERCENT AUTO 1 % (0-6); Hematocrit 37.2 % (33.0-51.0); Hemoglobin 12.4 g/dL (11.5-16.0); IMMATURE GRAN PERCENT AUTO 1 % (0-1); LYMPHOCYTES ABSOLUTE AUTO 3.14 K/mm3 (0.84-5.20); LYMPHOCYTES PERCENT AUTO 17 % (21-46); MONOCYTES ABSOLUTE AUTO 0.87 K/mm3 (0.16-1.47); MONOCYTES PERCENT AUTO 5 % (4-13); Mean Corpuscular HGB 33.3 pg (26.0-34.0); Mean Corpuscular HGB Conc 33.3 g/dL (31.5-36.5); Mean Corpuscular Volume 100 fL (80-100); NEUTROPHILS ABSOLUTE AUTO 14.67 K/mm3 (1.96-9.15); NEUTROPHILS PERCENT AUTO 77 % (41-73); RDW Coefficient Variation 19.1 % (11.7-14.2); RDW Standard Deviation 66.7 fL (35.1-46.3); Red Blood Cell Count 3.72 M/mm3 (3.80-5.20); White Blood Cell Count 18.98 K/mm3 (4.00-11.30)
[2022-07-22 05:05] LABS: Platelet Count 40 K/mm3 (150-400)
[2022-07-22 05:13] LABS: Calcium, Blood 7.5 mg/dL (8.5-10.1); Creatinine, Blood 0.76 mg/dL (0.40-1.00); Potassium, Blood 3.6 mmol/L (3.5-5.5)
--- NOTE | 2022-07-22 07:00 | NUR ---
SUMMARY PATIENT REMAINS INTUBATED AND SEDATED. VENT CHANGED TO PS 16/6 FIO2 40% AT 0020. ONCE DURING THE NIGHT SUCTIONING BLOODY SPUTUM VIA ETT. DUE TO HYPOTENSION WHEN SLEEPING PROPOFOL TITRATED DOWN TO 25 MCG. AT 0600 COUGHING AND TEARFUL PROPOFOL NOW AT 30 MCG AND PATIENT RELAXED AND LUDY VENT BETTER. OG REMAINS IN PLACE WITH TF OFF AT 0300 FOR POSSIBLE RAVI TODAY. TYLENOL PER OG GIVEN FOR FEVER.
--- NOTE | 2022-07-22 09:16 | NUR ---
ASSUMED CARE REPORT FROM ROMAINE MATOS AT 0700. PT INTUBATED AND SEDATED. VENT SETTINGS PC 14 16/6/40%. LUNGS CLEAR, SMALL AMOUNT THIN CLEAR SECRETIONS FROM ETT. PROPOFOL AND FENTANYL GTT INFUSING. COUGH/GAG/SWALLOW REFLEX. PT APPEARS TO MAKE EYE CONTACT. DOES NOT FOLLOW COMMAND OR WITHDRAW FROM PAINFUL STIMULI. SMALL MOVEMENTS NOTED TO EXTS. SR, RATE 90'S. BP STABLE. 2+ EDEMA TO ALL EXT. AFEBRILE. MOTTLING TO KNEES. OGT CLAMPED. TUBE FEEDS ON STANDBY FOR POSSIBLE RAVI THIS SHIFT. RECTAL TUBE IN PLACE, DRAINING LIQUID BROWN STOOL TO GRAVITY. HELMS PATENT, DRAINING CLEAR YELLOW URINE TO GRAVITY. WILL CONTINUE TO MONITOR.
--- NOTE | 2022-07-22 17:37 | NUR ---
SHIFT SUMMARY REMAINS INTUBATED AND SEDATED. VENT SETTINGS CHANGED TO SPONT 5/5/30% AT APPROX 1600. PT c PERIODS OF APNEA FOLLOWED BY TACHYPENIA, DR THOMPSON AWARE. TV 200-300 ML. MANTAINING O2 SATS. FREQUENT ALARMS FOR LOW VOLUMES, HIGH RR. INCREASED SETTINGS TO 12/5/30%. PT TOLERATING MUCH BETTER. TV 350-400'S. DECREASE IN IRREGULAR RESP. LUNGS CLEAR. SCANT SECRETIONS FROM ETT. PROPOFOL AND FENTANYL GTT. DECREASED THIS SHIFT. NEURO UNCHANGED, MAKING EYE CONTACT, NOT FOLLOWING COMMANDS. SR, RATE 90'S. BP STABLE. AFEBRILE, 2+ EDEMA TO ALL EXT. RAVI COMPLETED THIS SHIFT, NO SIGNIFICANT FINDINGS. TOLERATED PROCEDURE WELL. TUBE FEEDS RESTARTED AFTER RAVI, RECTAL TUBE IN PLACE, 500 ML BROWN LIQUID STOOL OUT. HELMS PATENT, DRAINED 1600 ML BRODIE URINE OUT. WILL CONTINUE TO MONITOR UNTIL REPORT TO ONCOMING NURSE.
--- NOTE | 2022-07-22 21:48 | NUR ---
ASSUMPTION OF CARE: ASSUMED CARE OF PT AT 1900. PT IS CURRENTLY INTUBATED AND SEDATED WITH PROPOFOL GTT @ 20 MCG AND FENTANYL LOAN OFFICER @ 12 MCG; VENT SETTINGS ARE ON SPONT. 12/5 AND FIO2 30%. LUNG SOUNDS ARE COARSE IN ALL LUNG MENDOZA, RR 20-24 AND PERIODICALLY JUMP UP TO 30-40 WHEN STIMULATED OR TURNED, SPO2 96< AND TIDAL VOLUMES 400-500. PT IS RESPONDING TO VERBAL STIMULI AND OPENING EYES WHEN NAME IS CALLED OUT, BUT IS NOT FOLLOWING COMMANDS AT THIS TIME. SR ON MONITOR WITH HR IN THE 90'S AND SBP IN THE 90'S. PT ABD IS MILDLY DISTENDED AND FIRM; OGT IS IN PLACE AND PIVOT 1.5 INFUSING AT 40 MLS/HR. RECTAL TUBE IN PLACE AND DRAINING TO GRAVITY; BROWN, LIQUID STOOL. TEMP HELMS IN PLACE AND DRAINING TO GRAVITY; URINE BRODIE, CLEAR. PT EDEMATOUS ALL OVER AND RECIEVING LASIX BID. WILL CONTINUE TO MONITOR.
[2022-07-23 04:35] LABS: BASOPHILS ABSOLUTE AUTO 0.02 K/mm3 (0.00-0.23); BASOPHILS PERCENT AUTO 0 % (0-2); EOSINOPHILS ABSOLUTE AUTO 0.21 K/mm3 (0.00-0.68); EOSINOPHILS PERCENT AUTO 1 % (0-6); Hematocrit 37.3 % (33.0-51.0); Hemoglobin 12.5 g/dL (11.5-16.0); IMMATURE GRAN ABSOLUTE AUTO 0.08 K/mm3 (0.00-0.10); IMMATURE GRAN PERCENT AUTO 1 % (0-1); LYMPHOCYTES ABSOLUTE AUTO 2.98 K/mm3 (0.84-5.20); LYMPHOCYTES PERCENT AUTO 18 % (21-46); MONOCYTES ABSOLUTE AUTO 0.76 K/mm3 (0.16-1.47); MONOCYTES PERCENT AUTO 5 % (4-13); Mean Corpuscular HGB 33.3 pg (26.0-34.0); Mean Corpuscular HGB Conc 33.5 g/dL (31.5-36.5); Mean Corpuscular Volume 100 fL (80-100); NEUTROPHILS ABSOLUTE AUTO 12.61 K/mm3 (1.96-9.15); NEUTROPHILS PERCENT AUTO 76 % (41-73); RDW Coefficient Variation 18.7 % (11.7-14.2); RDW Standard Deviation 66.4 fL (35.1-46.3); Red Blood Cell Count 3.75 M/mm3 (3.80-5.20); White Blood Cell Count 16.66 K/mm3 (4.00-11.30)
[2022-07-23 04:47] LABS: Mean Platelet Volume 13.5 fL (9.1-12.4)
[2022-07-23 04:48] LABS: Platelet Count 38 K/mm3 (150-400)
[2022-07-23 04:56] LABS: Albumin, Blood 2.3 g/dL (3.4-5.0); Albumin/Globulin Ratio 0.7 (0.8-1.8); Bilirubin, Total 1.8 mg/dL (0.1-1.0); Bun/Creatinine Ratio 52.8 (12.0-20.0); Calcium, Blood 7.7 mg/dL (8.5-10.1); Creatinine, Blood 0.82 mg/dL (0.40-1.00); Globulin, Blood 3.4 g/dL (2.2-4.0); Phosphorus, Blood 3.1 mg/dL (2.5-4.9); Potassium, Blood 3.5 mmol/L (3.5-5.5); Total Protein, Blood 5.7 g/dL (6.4-8.2)
--- NOTE | 2022-07-23 06:43 | NUR ---
SHIFT ASSESSMENT: PT REMAINS INTUBATED AND SEDATED WITH PROPOFOL GTT @ 20 MCG, FENTANYL LOCKSTITCH SLEEVE SETTER @ 12 MCG, AND VENT SETTINGS PC, 16/5, RATE-14, AND FIO2- 30%. VSS THROUGHOUT THE SHIGT. PT GOT COMPLETE BED BATH AND LINEN CHANGE THIS SHIFT. IT WAS OBSERVED THAT INCREASE IN ORAL SECRETIONS THIS SHIFT AND COUGHING FITS THAT SOUND VERY WET BUT NOT PRODUTIVE; NO SECRETIONS OUT OF THE ETT WHEN SUCTIONED. THE PT TOLERATED PT CARE AND TURNS WELL THIS SHIFT. WILL CONTINUE TO MONITOR UNTIL ONCOMING RN ARRIVES.
--- NOTE | 2022-07-23 07:55 | NUR ---
ASSUMED CARE PT IS INTUBATED AND SEDATED ON //45% W/ SPO2 >92%. MAP >65. PT IS CURRENTLY ON SEDATION VACATION W/ EYES OPENING TO VERBAL/PHYSICAL STIMULI. PT DOES NOT FOLLOW COMMANDS AND HAS NO PURPOSEFUL MOVEMENTS; STRABISMUS NOTED. COPIOUS AMOUNTS OF SECRETIONS PULLED FROM ORAL CARE. GAG REFLEX NOTED. ABNORMAL BABINSKI RESPONSE. GRIMACES TO NOXIOUS STIMULI.
--- NOTE | 2022-07-23 08:17 | NUR ---
UPDATE RIGHT PUPIL MORE DILATED THAN LEFT, BUT EQUALIZES W/ LIGHT. PT PROTECTS EYES.
--- NOTE | 2022-07-23 08:57 | NUR ---
UPDATE SEDATION OFF FOR AN HOUR AND PT NOW ABLE TO FOLLOW SOME COMMANDS AND TRACK EYES. ANXIOUS.
--- NOTE | 2022-07-23 10:25 | NUR ---
UPDATE PT ABLE TO NOD HEAD WHEN ASKED IF IN PAIN. PUPILS ARE NOW EQUAL BILATERALLY; 3MM.
--- NOTE | 2022-07-23 17:37 | NUR ---
SHIFT SUMMARY PT RESPONDS TO VERBAL STIMULI AND INTERMITTENTLY RESPONDS W/ NOD/SHAKING HEAD; SLOW TO WAKE UP/RESPOND. 14/16/5/45% VENT SETTINGS W/ SPO2 >92%; MAP >65. T-MAX 101.8 TODAY W/ ICE PACKS/TYLENOL ADMINISTERED. COPIOUS AMOUNTS OF ORAL SECRETIONS THAT ALTERNATES BETWEEN SALIVA AND RED TINGED MUCUS. SEDATION VACATION AT START OF SHIFT FOR ABOUT AN HOUR, WHICH PT DID NOT TOLERATE; PT BECAME ANXIOUS AND NON-COMPLIANT W/ VENTILATOR SO PROPOFOL AND FENTANYL WAS TURNED BACK ON. STRABISMUS/PUPIL INEQUALITY NOT NOTED AFTER NOTE UPDATE. TUBE FEED AT GOAL RATE OF 35; FENTANYL 12 MCG/HR; PROPOFOL 20MCG.
--- NOTE | 2022-07-23 20:28 | NUR ---
ASSUMED CARE: PT SEDATED AT A RASS -1; OPENS EYES TO VERBAL STIMULI, BUT DRIFTS BACK ASLEEP QUICKLY. SLIGHT NOD TO QUESTIONS, UNABLE TO SQEEZE HANDS. PT HAS COUGH AND GAG. BILAT WRSIST RESTRAINTS ON. KELLY AT 3 MM BILAT AND SLUGGISH. SEDATION VACATION DONE; TOOK ABOUT 30 MINUTES FOR PT TO AWAKWN AND OPEN EYES SPONTANEOUSLY AND LOOK AROUND. VERY WEAK SQEEZE OF BILAT HANDS. LS COARSE T/O AND DIMINSHED IN THE BASES WITH BIOX 96% ON PC WITH AC 14, PEEP 5 AND FIO2 30%. ETT 7.5 23 AT GUMS. THICK POWERS SECRETIONS SX'D. HEART SOUNDS WITH S3 MURMUR NOTED. MONITOR SHOWING SR WITH HR 92. SKIN MOTTLED OVER KNEES. STRONG RADIAL PULSES BILAT WITH DOPPLER PEDAL AND DP PULSES. 20G IV L AC WITH NS TKO. 20G 8CM PG WITH PROPOFOL RUNNING AT 7.5CC/HR= 20MCG/KG/MIN WITH NS TKO WITH FENTANYL AT 12MCG/HR. ABD FIRM BUT SOFT WITH HYPER BT X4. RECTAL TUBE DRAINING LIQUID BROWN. HELMS CHANGED TO 16FR TEMP HELMS AND UA SENT.
[2022-07-23 21:10] LABS: Source, Urine Foley catheter
[2022-07-23 21:13] LABS: Appearance, Urine Clear (Clear); Bilirubin, Urine Neg (Neg); Blood, Urine 1+ (Neg); Color, Urine Yellow (P-Yellow); Glucose Qualitative, Urine Neg (Neg); Ketones, Urine Neg (Neg); Leukocyte Esterase, Urine 1+ (Neg); Nitrite, Urine Neg (Neg); Protein, Urine 2+ (Neg); Specific Gravity, Urine 1.015 (1.003-1.022); Urobilinogen, Urine 4+ (Normal)
[2022-07-23 21:31] LABS: Bacteria Mod /hpf; Mucus Light (0-Heavy); Squamous Epithelial Cells Many /hpf (Few)
[2022-07-24 03:19] LABS: BASOPHILS ABSOLUTE AUTO 0.02 K/mm3 (0.00-0.23); BASOPHILS PERCENT AUTO 0 % (0-2); EOSINOPHILS ABSOLUTE AUTO 0.23 K/mm3 (0.00-0.68); EOSINOPHILS PERCENT AUTO 2 % (0-6); Hematocrit 35.5 % (33.0-51.0); Hemoglobin 11.9 g/dL (11.5-16.0); IMMATURE GRAN ABSOLUTE AUTO 0.07 K/mm3 (0.00-0.10); IMMATURE GRAN PERCENT AUTO 1 % (0-1); LYMPHOCYTES ABSOLUTE AUTO 2.21 K/mm3 (0.84-5.20); LYMPHOCYTES PERCENT AUTO 15 % (21-46); MONOCYTES ABSOLUTE AUTO 0.75 K/mm3 (0.16-1.47); MONOCYTES PERCENT AUTO 5 % (4-13); Mean Corpuscular HGB 33.1 pg (26.0-34.0); Mean Corpuscular HGB Conc 33.5 g/dL (31.5-36.5); Mean Corpuscular Volume 99 fL (80-100); Mean Platelet Volume 12.6 fL (9.1-12.4); NEUTROPHILS ABSOLUTE AUTO 11.78 K/mm3 (1.96-9.15); NEUTROPHILS PERCENT AUTO 78 % (41-73); RDW Coefficient Variation 18.1 % (11.7-14.2); RDW Standard Deviation 64.8 fL (35.1-46.3); Red Blood Cell Count 3.59 M/mm3 (3.80-5.20); White Blood Cell Count 15.06 K/mm3 (4.00-11.30)
[2022-07-24 03:23] LABS: Platelet Count 39 K/mm3 (150-400)
[2022-07-24 03:40] LABS: Albumin, Blood 2.1 g/dL (3.4-5.0); Anion Gap 6 mmol/L (6-16); Blood Urea Nitrogen 42 mg/dL (8-24); Bun/Creatinine Ratio 57.2 (12.0-20.0); CO2, Blood 33 mmol/L (21-32); Chloride, Blood 105 mmol/L (98-108); Creatinine, Blood 0.73 mg/dL (0.40-1.00); Glomerular Filtration Rate 104 (60-); Glucose, Blood 165 mg/dL (70-99); Phosphorus, Blood 2.9 mg/dL (2.5-4.9); Potassium, Blood 3.1 mmol/L (3.5-5.5); Sodium, Blood 144 mmol/L (136-145)
--- NOTE | 2022-07-24 06:10 | NUR ---
SUMMARY: PT OPENS EYES SPONTANEOUSLY AND GRIMACES AND NODS HEAD SLIGHTLY WHEN ASKED IF HAVING PAIN. LS COARSE T/O WITH LOTS OF POWERS WITH BLOODY STREAKED SECRETIONS FORM ETT AND ORAL. PT HAD 2+ PITTING EDEMA T/O AND HAS BEEN RECEIVING LASIX BID. K+ A LITTLE LOW THIS AM AND GETTING REPLACED.
--- NOTE | 2022-07-24 09:00 | NUR ---
ASSUMED CARE PT OPENS EYES TO VERBAL STIMULI, TRACKS EYES, BUT DOES NOT FOLLOW COMMANDS AT TIME OF THIS NOTE. SEDATION VACATION TO BE DONE LATER D/T PT RR IN THE 40'S. SPO2 >92% W/ VENT SETTINGS AT 14/16/5/30%. MAP >65. PT HAS COPIOUS AMOUNTS OF ORAL SECRETIONS. RECTAL TUBE REPLACED D/T BEING PULLED DURING REPOSITIONING. LUNG SOUNDS ARE MORE CLEAR THAN PREVIOUS DAY SHIFT (WAS MY PT). EDEMA NOTED T/O. PROPOFOL 30MCG/KG/MIN; FENTANYL 12MCG/HR. TEMPERATURE STILL IN THE 100'S.
--- NOTE | 2022-07-24 15:44 | NUR ---
UPDATE SEDATION VACATION FOR 20 MINUTES W/ ONLY 12MCG/HR OF FENTANYL RUNNING. PT NODDED HEAD WHEN ASKED IF SHE UNDERSTOOD ME, BUT DID NOT RESPOND TO ANY OTHER QUESTIONS/FOLLOW COMMANDS. PT WAS ANXIOUS, WEEPING, TACHYPNEIC, AND COUGHING SO SEDATION WAS PUT BACK ON.
--- NOTE | 2022-07-24 17:08 | NUR ---
SHIFT SUMMARY PT OPENS EYES TO VERBAL STIMULI AND RESPONDED APPROPRIATELY TO QUESTION ONCE TODAY ON SEDATION VACATION BY NODDING HEAD. DOES NOT FOLLOW COMMANDS, BUT TRACKS EYES AND WAS CRYING WHILE ON SEDATION VACATION. PROPOFOL AT 25MCG/KG/MIN AND FENTANYL AT 12MCG/HR. SECRETIONS HAVE DECREASED SINCE CARING FOR PT YESTERDAY, BUT SOME BLOODY THICK MUCUS WAS SUCTIONED NEAR END OF SHIFT. LUNG SOUNDS ARE CURRENTLY CLEAR.
--- NOTE | 2022-07-24 19:15 | NUR ---
ASSUMED CARE OF PT FROM JOHANNA RN @1900. PT SEDATED AND INTUBATED. PROPOFOL 25MCG/KG/MIN. PC RATE 14, 16/5, FIO2 30%. ETT 7.5, 23@GUMS. HR 90'S, RR <20, SPO2 >92%, 20GA LAC PATENT INFUSING TKO 10MLS/HR, PG MAT PATENT INFUSING. TEMP HELMS PATENT AND DRAINING TO GRAVITY. RECTAL TUBE DRAINING TO GRAVITY. OG TF 35MLS/HR GR.
[2022-07-25 02:45] LABS: BASOPHILS ABSOLUTE AUTO 0.02 K/mm3 (0.00-0.23); BASOPHILS PERCENT AUTO 0 % (0-2); EOSINOPHILS ABSOLUTE AUTO 0.22 K/mm3 (0.00-0.68); EOSINOPHILS PERCENT AUTO 2 % (0-6); Hematocrit 36.1 % (33.0-51.0); IMMATURE GRAN ABSOLUTE AUTO 0.06 K/mm3 (0.00-0.10); IMMATURE GRAN PERCENT AUTO 0 % (0-1); LYMPHOCYTES PERCENT AUTO 15 % (21-46); MONOCYTES ABSOLUTE AUTO 0.73 K/mm3 (0.16-1.47); MONOCYTES PERCENT AUTO 5 % (4-13); Mean Corpuscular HGB Conc 33.2 g/dL (31.5-36.5); Mean Corpuscular Volume 99 fL (80-100); NEUTROPHILS ABSOLUTE AUTO 10.51 K/mm3 (1.96-9.15); NEUTROPHILS PERCENT AUTO 77 % (41-73); Platelet Count 56 K/mm3 (150-400); RDW Coefficient Variation 18.3 % (11.7-14.2); RDW Standard Deviation 64.5 fL (35.1-46.3); Red Blood Cell Count 3.64 M/mm3 (3.80-5.20); White Blood Cell Count 13.64 K/mm3 (4.00-11.30)
[2022-07-25 03:06] LABS: Albumin, Blood 2.1 g/dL (3.4-5.0); Anion Gap 5 mmol/L (6-16); Blood Urea Nitrogen 41 mg/dL (8-24); Bun/Creatinine Ratio 58.6 (12.0-20.0); CO2, Blood 31 mmol/L (21-32); Chloride, Blood 107 mmol/L (98-108); Glomerular Filtration Rate 109 (60-); Glucose, Blood 130 mg/dL (70-99); Phosphorus, Blood 3.4 mg/dL (2.5-4.9); Potassium, Blood 3.5 mmol/L (3.5-5.5); Sodium, Blood 143 mmol/L (136-145)
[2022-07-25 03:07] LABS: Vancomycin, Trough 15.5 ug/mL (5.0-10.0)
[2022-07-25 03:16] LABS: Mean Platelet Volume 13.6 fL (9.1-12.4)
--- NOTE | 2022-07-25 06:39 | NUR ---
SUMMARY NO ACUTE EVENTS OVERNIGHT. PT REMAINS SEDATED W/PROPOFOL 20MCG/KG/MIN AND FENTANYL 12MCG/HR. PC RATE 14, 16/5, FIO2 45%. PT HAVING OFF/ON ANXIETY. OPENING EYES, GRIMACING, AND CRYING. PRN FENTANYL GIVEN. TMAX 102.2. TYLENOL GIVEN, FAN AND ICE ON PT. CONTINUES TO HAVE LARGE AMOUNTS OF ORAL SECRETIONS AND THICK RED SECRETIONS FROM ETT. LUNGS COARSE THROUGHOUT. CONTINUOUS CARDIAC MONITORING, HR 90'S, BP STABLE. EDEMA 2+ BUE/BLE. OG TF PIVOT @35MLS/HR GR. RECTAL TUBE DRAINING LIQUID BROWN STOOLS TO GRAVITY. HELMS PATENT AND DRAINING TO GRAVITY. PG MAT PATENT AND INFUSING. 20GA LAC PATENT AND INFUSING. ASSESSMENTS REMAIN UNCHANGED.
--- NOTE | 2022-07-25 19:06 | NUR ---
SHIFT SUMMARY: pt successfully extubated to 6L NC at noon and has since been tolerating that well. She is plesantly alert and oriented to self and place. Tube feeds discontinued. Pt did not pass bedside swallow. Speech therapy consult placed. Rectal tube and alatorre patent and draining to gravity.
[2022-07-26 03:59] LABS: BASOPHILS ABSOLUTE AUTO 0.03 K/mm3 (0.00-0.23); BASOPHILS PERCENT AUTO 0 % (0-2); EOSINOPHILS ABSOLUTE AUTO 0.12 K/mm3 (0.00-0.68); EOSINOPHILS PERCENT AUTO 1 % (0-6); Hematocrit 35.3 % (33.0-51.0); Hemoglobin 11.8 g/dL (11.5-16.0); IMMATURE GRAN ABSOLUTE AUTO 0.04 K/mm3 (0.00-0.10); IMMATURE GRAN PERCENT AUTO 0 % (0-1); LYMPHOCYTES ABSOLUTE AUTO 2.04 K/mm3 (0.84-5.20); LYMPHOCYTES PERCENT AUTO 16 % (21-46); MONOCYTES ABSOLUTE AUTO 0.88 K/mm3 (0.16-1.47); MONOCYTES PERCENT AUTO 7 % (4-13); Mean Corpuscular HGB 32.8 pg (26.0-34.0); Mean Corpuscular HGB Conc 33.4 g/dL (31.5-36.5); Mean Corpuscular Volume 98 fL (80-100); Mean Platelet Volume 12.4 fL (9.1-12.4); NEUTROPHILS ABSOLUTE AUTO 9.65 K/mm3 (1.96-9.15); NEUTROPHILS PERCENT AUTO 76 % (41-73); Platelet Count 78 K/mm3 (150-400); RDW Coefficient Variation 17.9 % (11.7-14.2); RDW Standard Deviation 62.4 fL (35.1-46.3); White Blood Cell Count 12.76 K/mm3 (4.00-11.30)
[2022-07-26 04:33] LABS: Albumin, Blood 2.3 g/dL (3.4-5.0); Anion Gap 7 mmol/L (6-16); Blood Urea Nitrogen 32 mg/dL (8-24); Bun/Creatinine Ratio 44.5 (12.0-20.0); CO2, Blood 30 mmol/L (21-32); Calcium, Blood 8.1 mg/dL (8.5-10.1); Chloride, Blood 108 mmol/L (98-108); Creatinine, Blood 0.72 mg/dL (0.40-1.00); Glomerular Filtration Rate 106 (60-); Glucose, Blood 87 mg/dL (70-99); Magnesium, Blood 2.2 mg/dL (1.6-2.4); Phosphorus, Blood 4.3 mg/dL (2.5-4.9); Potassium, Blood 3.6 mmol/L (3.5-5.5); Sodium, Blood 145 mmol/L (136-145)
--- NOTE | 2022-07-26 05:51 | NUR ---
PT NPO AND ALL PO MEDS HELD, FENTANYL X'S 2, FSBS 70'S AND 80'S, ST ON MONITOR 110-120'S, UO 425 FOR THE SHIFT, 150 CC OUT IN RECTAL TUBE, TMAX 101.8, O2 REQUIREMENTS INCREASED TO 10 L HFNC AT 0440 FROM 6 LPM
--- NOTE | 2022-07-26 10:05 | NUR ---
Assumed care of pt at 0700. Report received from Rayne MATOS. Pt alert, oriented x 2. Hoarse, soft voice. Pleasant and cooperative with care. Follows commands. ST eval complete, diet assigned. This RN assisted pt to eat breakfast and she tolerated prescribed diet well, without signs of aspiration. Pt has a couple of visitors at beside that received update from providers. Dr Snyder and Dr Piedra have been in to see patient. Potential plan for thoracentesis today.
[2022-07-26 13:20] LABS: Automated BF RBC Count 0.006 M/mm3 (0-0); Automated BF WBC Count 7.644 K/mm3 (0-999)
[2022-07-26 13:21] LABS: Body Fluid WBC Count 7644 /mm3 (0-999); RBC Count, Body Fluid 6000 /mm3 (0-0)
[2022-07-26 13:28] LABS: Albumin, Body Fluid 1.6 g/dL
[2022-07-26 13:45] LABS: Glucose, Body Fluid 130 mg/dL; Lactate Dehydrogenase, Body Fl 253 U/L; Protein, Body Fluid 3.2 g/dL
[2022-07-26 13:46] LABS: Appearance, Body Fluid Cloudy (Clear); Color, Body Fluid Yellow (None-Yellow); Total Cell Count, Body Fluid 100
[2022-07-26 14:47] LABS: Vancomycin, Trough 15.5 ug/mL (5.0-10.0)
--- NOTE | 2022-07-26 15:08 | NUR ---
Thoracentesis complete. 1100 mL of cloudy orange drainage. Samples sent to lab. Site dressed with bandaid. Pt tolerated well.
--- NOTE | 2022-07-26 17:54 | NUR ---
SUMMARY Neuro: A&O x 2. Answers questions, follows commands, verbalizes needs. Has hoarse and soft voice. Intermittently reports pain to ribs and throat. Pain relieved with fentanyl. Intermittently febrile, but normothermia achieved with tylenol. Musc: Able to help with repositioning. Requires assist with ADLs including oral care and feeding. Resp: Remains on 8 LPM with HFNC. Loose, productive cough with pink sputum. Thoracentesis complete. Cardiac: ST per monitor, BP stable. GI: Tolerating puree diet well. No signs of aspiration with PO intake. Rectal tube remains in place for diarrhea secondary to lactulose. : [place] urine. Catheter secured to bed, patent and draining. Skin: Unchanged from intial assessment. Psych: Visitors in room all day. Pt responds well to visitors in room. No reports of anxiety today, however pt did receive one dose of xanax this AM.
--- NOTE | 2022-07-26 19:00 | NUR ---
ASSUMED CARE OF PT AT 1900 PT RESTING IN ROOM WITH NO VISITORS AT THIS TIME. A/O X4. FOLLOWS COMMANDS AND IS ABLE TO MAKE NEEDS KNOWN. 8L NC WITH SPO2 >92%. HELMS DRAINING TO GRAVITY WITH YELLOW/LIGHT ORANGE URINE PRESENT. RECTAL TUBE DRAINING TO GRAVITY. YELLOW/BROWN LIQUID STOOL PRESENT. TEMP 100.4 - DAYSHIFT REPORTS GIVING TYLENOL WITH THE LAST HOUR. BP 120'S SYSTOLIC. HR 100'S. SINUS TACHY AT THIS TIME. TKO RUNNING AT 10 MLS/HR. SEE FULL ASSESSMENT FOR FUTHER INFORMATION.
[2022-07-26 19:17] LABS: pH, Body Fluid 6.1
[2022-07-27 04:09] LABS: Hematocrit 36.5 % (33.0-51.0); Hemoglobin 12.1 g/dL (11.5-16.0); Mean Corpuscular HGB Conc 33.2 g/dL (31.5-36.5); Mean Corpuscular Volume 100 fL (80-100); Mean Platelet Volume 12.4 fL (9.1-12.4); Platelet Count 103 K/mm3 (150-400); RDW Coefficient Variation 17.7 % (11.7-14.2); RDW Standard Deviation 63.1 fL (35.1-46.3); Red Blood Cell Count 3.67 M/mm3 (3.80-5.20); White Blood Cell Count 12.02 K/mm3 (4.00-11.30)
[2022-07-27 04:50] LABS: Albumin, Blood 2.2 g/dL (3.4-5.0); Albumin/Globulin Ratio 0.6 (0.8-1.8); Bilirubin, Total 1.4 mg/dL (0.1-1.0); Bun/Creatinine Ratio 38.8 (12.0-20.0); Calcium, Blood 8.2 mg/dL (8.5-10.1); Creatinine, Blood 0.8 mg/dL (0.40-1.00); Potassium, Blood 3.8 mmol/L (3.5-5.5); Total Protein, Blood 6.2 g/dL (6.4-8.2)
--- NOTE | 2022-07-27 06:08 | NUR ---
END OF SHIFT SUMMARY PT UP MOST OF THE NIGHT. CONFUSION AND ANXIETY INTERMITANTLY. A/O X2-3. LUNG SOUNDS ARE MOIST WITH GURGLING AND NON-PRODUCTIVE COUGH. RECTAL TUBE TAKEN OUT MID SHIFT DUE TO INCREASED DISCOMFORT AND URGE TO HAVE BM. BRIEF PLACED. HELMS CATH DRAINING TO GRAVITY. YELLOW ORANGE URINE AT THIS TIME. NO VISITORS THIS SHIFT. BP AND HR STABLE. SINUS TACHY MOST OF THE SHIFT WITH NO CHANGES FROM DAYSHIFT. TKO RUNNING AT 10 MLS/HR. WILL CONTINUE TO MONITOR UNTIL SHIFT REPORT GIVEN TO AM NURSE.
--- NOTE | 2022-07-27 08:00 | NUR ---
PT A&OX4. OCCASIONALLY FORGETFUL, BUT EASILY RE-DIRECTED. DENIES PAIN OR SOB. PT BRUNER, BUT GENERALLY WEAK. ECG SHOWS ST WITH RATE 100-110'S. BP STABLE. TEMP 100.7. GENERALIZED EDEMA CONTINUES BUT IMPROVING. LUNGS DIMINISHED IN THE BASES. PT HAS A STRONG, WET, NONPRODUCTIVE COUGH. SATS>90% ON 5 LITERS HIGH FLOW O2. SPEECH THERAPY IN TO SEE PT. PT ON PUREED DIET-SIPS OF WATER FROM CUP-MEDS CRUSHED IN PUDDING. KCL HELD UNABLE TO CRUSH. WILL ADDRESS ADMINISTERING LIQUID OR IV FORM WITH DR. DEL REAL. ABDOMEN SLIGHTLY DISTENDED AND FIRM, BUT NOT TENDER WITH PALPATION. HELMS TO BSD WITH SMALL AMOUNT OF YELLOW ORANGE URINE OUTPUT. SKIN AND SCLERA SLIGHTLY JAUNDICED. PT S/O JAYCE AT BEDSIDE-VERY SUPPORTIVE. S/O UPDATED TO CURRENT STATUS AND PLAN OF CARE. WILL REQUEST PT/OT EVAL & TREATMENT AND STATUS CHANGE LATER TODAY.
--- NOTE | 2022-07-27 09:35 | NUR ---
DR. MARRERO IN TO SEE PT. UPDATE GIVEN. PT NOW PCU STATUS.
--- NOTE | 2022-07-27 10:00 | NUR ---
CONCEPCIÓN CARE DONE AND ATTENDS CHANGED. ASSISTED PT OOB TO CHAIR-2 PERSON ASSIST. TOLERATED WELL.
--- NOTE | 2022-07-27 12:15 | NUR ---
PT REMAINS UP IN THE CHAIR. PT WORKED WITH PHYSICAL THERAPY AND WAS VERY COOPERATIVE. TEMP 101.2-MED WITH TYLENOL PO-SEE EMAR. CBG 266-COVERED PER SLIDING SCALE. PT REQUESTS TO REMAIN UP IN THE CHAIR. REPORT PHONED TO CARLO RODRIGUEZ IN PREP TO TRANSFER PT TO PCU 3.
--- NOTE | 2022-07-27 12:30 | NUR ---
DR. MARRERO IN TO SEE PT. FIO2 TITRATED DOWN TO 2 LITERS.
--- NOTE | 2022-07-27 18:20 | NUR ---
CARE ASSUMPTION THIS RN ASSUMED CARE AROUND 1300. PATIENT IS ALERT AND ORIENTED 3-4. PATIENT REPORTS THROAT PAIN AND RECEIVED MEDICATIONS FOR IT PER EMAR. PATIENT REPROTS NO SHORTNESS OF BREATH OR CHEST PAIN/PRESSURE. PATIENT HAS SUCTION WITH HER AND CAN SUCTION HERSELF WITH ASSISTANCE. PATIENT NEEDS ASSISTANCE EATING. PATIENT FAMILY AND PARNTER HAVE BEEN AT BEDSIDE TODAY. PATIENT HELMS IS DRAINING WTIH GRAVITY YELLOW URINE. PLAN OF CARE IS UP TO DATE. CALL LIGHT WITHIN REACH AND BED IN LOWEST POSITION.
[2022-07-28 03:25] LABS: Albumin, Blood 2.1 g/dL (3.4-5.0); Anion Gap 6 mmol/L (6-16); Blood Urea Nitrogen 26 mg/dL (8-24); Bun/Creatinine Ratio 34.8 (12.0-20.0); CO2, Blood 30 mmol/L (21-32); Calcium, Blood 7.6 mg/dL (8.5-10.1); Chloride, Blood 101 mmol/L (98-108); Creatinine, Blood 0.75 mg/dL (0.40-1.00); Glomerular Filtration Rate 101 (60-); Glucose, Blood 106 mg/dL (70-99); Phosphorus, Blood 3.7 mg/dL (2.5-4.9); Potassium, Blood 3.3 mmol/L (3.5-5.5); Sodium, Blood 137 mmol/L (136-145)
[2022-07-28 03:27] LABS: Vancomycin, Trough 17.3 ug/mL (5.0-10.0)
--- NOTE | 2022-07-28 06:07 | NUR ---
UPDATE; 0540 PT BECAME VERY ANXIOUS D/T PAIN IN LEGS. THIS RN MEDICATED PER EMAR. WHEN RN OUT OF ROOM, PT PULLED OUT NC; SPO2 DROPPED TO 84%. THIS RN IN TO CHECK ON PT; PT WAS PALE, DIAPHORETIC, MOANING. NC PLACED BACK INTO PT NOSE; PT RECOVERED WELL ALTHOUGH WOB INCREASED. PT LEFT ROOM ABOUT 5 MINS LATER; PT O2 DROPPED TO 86%, HR INCREASED TO 138. THIS RN BACK INTO ROOM TO CHECK ON PT. NC IN PLACE, PT MOANING AND UNABLE TO VERBALIZE WHAT IS GOING ON. PT STILL APPEARS PALE AND DIAPHORETIC. O2 INCREASED TO 6 L; PT NOT RECOVERING. O2 INCREASED TO 9 L; PT RECOVERED TO 91%, PT THEN STARTED TO CALM AND RELAX. PT TACHYPNEIC, WOB INCREASED. THIS RN KEPT O2 AT 9L UNTIL PT FULLY RECOVERED, PT ABLE TO RELAX A LITTLE. HR BACK DOWN TO 100'S. WILL CONTINUE TO MONITOR UNTIL AM RN ARRIVES AND ASSUMES CARE.
--- NOTE | 2022-07-28 10:51 | NUR ---
CARE ASSUMPTION THIS RN ASSUMED CARE AT 0700. PATIENT IS HYPOTENSIVE.MD DEL REAL NOTIFIED. ALBUMIN ORDERED AND MIDODRINE. SEE EMAR AND ORDERS. SPO2 AT 85 ON 3L, THIS RN INCREASED THE OXYGEN TO 5L AND PATIENT SPO2 REMAINED GREATER THAN 90%. PATIENT WAS VERY ANXOUS AT THE START OF THE SHIFT, AND COMPLAINING OF LEG CRAMPS. THIS RN EDUCATED THE PATIENT ON NON-PHARMLOGICAL METHODS AND PROVIDED THE PATIENT WITH MEDICATION PER EMAR. PATIENT IS ALERT AND ORIENTED TO SELF PERSON PLACE AND THAT IT IS A NEW YEAR, BUT PATIENT STATED THE YEAR WAS 2014 AND DIDN'T KNOW THE PRESIDENT. THIS RN REORIENTATED THE PATIENT TO THE CORRECT YEAR AND PRESIDENT. PATIENT REPORTS NO SHORTNESS OF BREATH OR CHEST PAIN. PATIENT HELMS IS DRAINING WITH GRAVITY YELLOW COLOR. PATIENT SKIN IS FARGILE THROUGHOUT AND HAS SCABS AND BRUISING. SEE SHIFT ASSESSMENT FOR FURTHER DETIALS. PATIENT RECEIVED ALBUMIN AND MIDORINE, BP IS STILL SOFT BUT MAP IS GREATER THAN 60. SEE VITAL SIGNS SECTION. MD DEL REAL AWARE OF PATIENT LEG CRAMPS. PATIENT PARTNER IS AT BESIDE AND HAS BEEN SINCE LAST NIGHT. PATIENT SEEMS TO LESS ANXIOUS THAN THE START OF THE SHIFT, BUT IS STILL ANXIOUS. PLAN OF CARE IS UP TO DATE. CALL LIGHT WITHIN REACH AND BED IN LOWEST POSITION.
--- NOTE | 2022-07-28 13:23 | NUR ---
UPDATE PATIENT HAD AN UNWITTNESSED FALL. SEE POST FALL ASSESSMENT FOR DETAILS. PATIENT DENIED ANY PAIN. NO NEW SKIN ISSUES NOTED. MD DEL REAL AND NURSING WEB PRODUCTION ARTIST INFORMED. BORDER INSPECTOR AWARE. SIGNIFICANT OTHER INFORMED. EDUCATION ON BED ALARM TO REMAIN ON. VSS. CALL LIGHT WITHIN REACH AND BED ALARM ON. PLAN OF CARE UPDATED.
--- NOTE | 2022-07-28 18:06 | NUR ---
SHIFT SUMMARY NO ACUTE CHANGES SINCE PREVIOUS NOTE. PATIENT RECEIVED A FULL BED BATH AND LINEN CHANGE. PLAN OF CARE IS UP TO DATE. BED IS IN LOWEST POSITION AND BED ALARM IS ON. CALL LIGHT IS WITHIN REACH. WILL CONTINUE TO MONITOR AND PROVIDE CARE UNTIL HAND OFF WITH NEXT SHIFT.
--- NOTE | 2022-07-28 21:36 | NUR ---
ASSUMPTION OF CARE 1899 THIS RN ASSUMED CARE OF PT AT 1900, REPORT RECEIVED FROM CARLO RODRIGUEZ. PT'S SIGNIFICANT OTHER IS AT BEDSIDE, PT SLEEPING IN BED. VSS. PT ON 5 L VIA NC, SPO2 94%. PT DOES NOT APPEAR TO BE IN ANY DISTRESS OR PAIN. PT SLIGHTLY OPENS EYES TO VERBAL STIMULI, OPENS THEM MORE TO TACTILE STIMULI. PT DENIES SOB, CP OR PRESSURE. DENIES GENERAL PAIN. PT STILL WEAK AND DECONDITIONED, PT ABLE TO MOVE ARMS AND LEGS A LITTLE BIT BUT FATIGUES EASILY. PT ABLE TO MINIMALLY ASSIST WHEN REPOSITIONING. PUREWICK AND ATTENDS IN PLACE. PT IS DRY. PT APPEARS COMFORTABLE. CALL LIGHT IN REACH, BED IN LOWEST POSITION AND BED ALARM ON. SIGNIFICANT OTHER IS LEAVING AND STATES HE IS AVAILABLE BY PHONE OR TO COME IN IF THE PATIENT NEEDS OR ANY CHANGES OCCUR. STATES IF PT HAS ANXIETY ATTACKS AGAIN AND IS UNABLE TO BE CALMED, THAT THIS RN CAN CALL HIM.
--- NOTE | 2022-07-28 21:42 | NUR ---
UPDATE PT USED CALL LIGHT, THIS RN INTO ROOM TO CHECK ON PT. PT STATES SHE "PEED HER SELF". ATTENDS, GOWN AND PARTIAL LINEN CHANGE COMPLETED. PERICARE COMPLETED. THIS RN NOTICED SMALL RED EXORIATION ON L INNER THIGH FROM WHERE HELMS STAT LOCK WAS PRIOR TO HELMS CATHETER BEING REMOVED. NO OTHER SKIN CHANGES OR BREAKDOWN NOTED. AFTER PT REPOSITIONED AND SETTLED. PT STATES FEELS LIKE SHE IS "HAVING TROUBLE BREATHING AND IS DROWNING". PT HAS MOIST, LOOSE SOUNDS COUGH. PT UNABLE TO COUGH ANY SPUTUM UP BUT IS ABLE TO COUGH AND CLEAR. PT SPO2 DECREASED TO 85%, THIS RN SAT PT UP IN HIGH REGALADO'S AND INCREASED O2 TO 7 L FROM 5 L. PT DIAPHORETIC AND INCREASED WOB. PT HAVING A HARD TIME RECOVERING. RT NOTIFIED AND IN TO SEE PT. RECOMMENDED FLUTTER VALVE, NOW IS AT PT BEDSIDE. PT SLOWLY RECOVERED, SPO2 >90%. PT CONTINUED ON 7 L FOR A LITTLE WHILE THEN TITRATED BACK DOWN TO 5 L, SPO2 MAINTAINING. SMALL AMOUNT OF SUCTION PROVIDED, SMALL AMOUNT OF SPUTUM NOTED.
[2022-07-29 03:54] LABS: BASOPHILS ABSOLUTE AUTO 0.02 K/mm3 (0.00-0.23); BASOPHILS PERCENT AUTO 0 % (0-2); EOSINOPHILS ABSOLUTE AUTO 0.21 K/mm3 (0.00-0.68); EOSINOPHILS PERCENT AUTO 3 % (0-6); Hematocrit 31.9 % (33.0-51.0); Hemoglobin 10.5 g/dL (11.5-16.0); IMMATURE GRAN ABSOLUTE AUTO 0.03 K/mm3 (0.00-0.10); IMMATURE GRAN PERCENT AUTO 0 % (0-1); LYMPHOCYTES ABSOLUTE AUTO 2.69 K/mm3 (0.84-5.20); LYMPHOCYTES PERCENT AUTO 33 % (21-46); MONOCYTES ABSOLUTE AUTO 0.41 K/mm3 (0.16-1.47); MONOCYTES PERCENT AUTO 5 % (4-13); Mean Corpuscular HGB 32.8 pg (26.0-34.0); Mean Corpuscular HGB Conc 32.9 g/dL (31.5-36.5); Mean Corpuscular Volume 100 fL (80-100); Mean Platelet Volume 11.6 fL (9.1-12.4); NEUTROPHILS ABSOLUTE AUTO 4.74 K/mm3 (1.96-9.15); NEUTROPHILS PERCENT AUTO 59 % (41-73); Platelet Count 126 K/mm3 (150-400); RDW Coefficient Variation 17.4 % (11.7-14.2); RDW Standard Deviation 63.1 fL (35.1-46.3)
[2022-07-29 04:16] LABS: Albumin, Blood 2.9 g/dL (3.4-5.0); Albumin/Globulin Ratio 0.9 (0.8-1.8); Bilirubin, Total 1.2 mg/dL (0.1-1.0); Bun/Creatinine Ratio 26.8 (12.0-20.0); Calcium, Blood 8.1 mg/dL (8.5-10.1); Creatinine, Blood 0.86 mg/dL (0.40-1.00); Globulin, Blood 3.4 g/dL (2.2-4.0); Magnesium, Blood 2.1 mg/dL (1.6-2.4); Phosphorus, Blood 3.1 mg/dL (2.5-4.9); Potassium, Blood 3.8 mmol/L (3.5-5.5); Total Protein, Blood 6.3 g/dL (6.4-8.2)
--- NOTE | 2022-07-29 04:55 | NUR ---
UPDATE THIS RN IN TO CHECK ON PT; PT TRYING TO GET OUT OF BED BUT UNABLE TO DUE TO WEAKNESS. PT APPEARS ANXIOUS, STATES "I NEED TO CALL JAYCE, I DONT KNOW WHAT IS GOING ON". PT STATES SHE IS FEELING ANXIOUS, PT ALSO REPORTS "FEELING WEIRD". THIS RN TRIED TO ASK QUESTIONS AND PINPOINT WHAT PT WAS TRYING TO EXPLAIN, PT UNABLE TO ANSWER QUESTIONS OFTEN REPLYING "I DONT KNOW". PT WAS ABLE TO SAY "MY LUNGS, I FEEL A LITTLE PRESSURE" WAS ABLE TO POINT TO LUNG/HEART AREA. THIS RN ASKED IF CHEST PAIN OR PRESSURE, PT STATES "NO". DENIES RADIATING PAIN, N/V, DIZZINESS, PALPITATIONS. PT DENIES SOB. WOB, RR OR SPO2 IS NOT CHANGED. PT DOES NOT APPEAR IN DISTRESS, NO CHANGES TO PT CONDITION NOTED. PT DOES APPEAR ANXIOUS. PT MEDICATED PER EMAR. PT REQUEST MEDICATION "TO HELP CALM AND WITH PAIN". THIS RN DISCUSSED WITH SUPERVISOR CAPACITOR PROCESSING. THIS RN WILL CONTINUE TO OBSERVE AND MONITOR PT CONDITION. WILL ALSO UPDATE AM RN. CALL LIGHT IN REACH, PT NOW RESTING IN BED.
--- NOTE | 2022-07-29 05:36 | NUR ---
SHIFT SUMMARY PT HAD A FEW ANXIOUS EVENTS THIS SHIFT, WELL REPORTS PAIN. PT STATES FEELS SORE. THIS RN REMINDED PT THAT SHE FELL YESTERDAY DURING THE DAY. PT DOES NOT RECALL THIS EVENT. PT REPOSITIONED, WARM BLANKETS PROVIDED AND UNITERRUPTED REST, WELL MEDICATED PER EMAR TO HELP RELIEVE PAIN AND PROVIDE COMFORT. VSS THROUGHOUT SHIFT. PT HAD ONE EVENT ON SPO2 DECREASING, SEE NURSING NOTE. SINCE PT HAS MAINTAINED >90% ON 5 L. PUREWICK REMOVED AND ATTENDS IN PLACE. THIS RN ATTEMPTED TO HAVE PT USE BSC, PT REQUESTED AND STATED SHE NEEDED TO PEE. PT WAS UNABLE TO SIT AT EDGE OF BED DUE TO WEAKNESS AND DECONDITIONING. THIS RN EXPLAINED TO PT IT WAS NOT SAFE TO USE BSC AND THAT SHE IS NOT YET STRONG ENOUGH TO SAFELY USE BSC. PT STARTING TO MAKE MORE PURPOSEFUL MOVEMENTS AND ABLE TO VERBALIZE SOME NEEDS; ALTHOUGH STILL HAVING SLOWED RESPONSES AND UNABLE TO ARTICULATE ALL NEEDS OR ANSWER ALL QUESTIONS. PT HAD SITUATION OF ANXIETY AND "FEELING WEIRD", SEE NURSING NOTE. SINCE THEN PT HAS CALMED AND REPORTS NO PAIN, SOB, CP OR PRESSURE; PT DENIES ANY CHANGES. CALL LIGHT IN REACH, PT IS USING AT TIMES AND ABLE TO STATE NEED. BED ALARM ON AND BED IN LOWEST POSITION. NO ACUTE CHANGES IN NEURO. PT STARTING TO DRINK MORE WATER AND REQUEST WATER. PT STILL HAVING LOOSE, MOIST COUGH W/NO SPUTUM PRODUCTION. WILL UPDATE ONCOMING RN
--- NOTE | 2022-07-29 06:31 | NUR ---
UPDATE PT USED CALL LIGHT; PATIENT TIMBER MANAGEMENT TECHNICIAN IN TO CHECK ON PT. REPORTS TO THIS RN THAT PT "GRABBED AT CHEST" AND STATES SHE IS HAVING CHEST PAIN. THIS RN IN TO ROOM, PT NODS YES WHEN ASKED IF SHE IS HAVING CHEST PAIN. PT UNABLE TO DESCRIBE PAIN. PT DID REPORT "PRESSURE" OR PAIN" EARLIER IN SHIFT, SEE NURSING NOTE FROM PREVIOUS. PT DENIES ANY OTHER SYMPTOMS. THIS RN NOTIFIED PROVIDER. NEW ORDERS FOR TROPONIN, EKG, AND SUBLINGUAL NITRO X3 Q5 MINS. CHARGE NURSE INTO TO TALK WITH PT WHILE THIS RN ON PHONE W/PROVIDER. PT DOES STATE IS "HURTS WORSE WHEN SHE BREATHES IN. EKG COMPLETED. WILL UPDATE ONCOMING RN AND MONITOR PT UNTIL THEN.
--- NOTE | 2022-07-29 11:15 | NUR ---
ASSUMPTION OF CARE: NEURO: PATIENT IS ALERT AND ORIENTED TO SELF, AND PERSON, UNABLE TO UNDERSTAND SEVERITY OF ILLNESS, IS EXTREMELY ANXIOUS, CAN BE UNCOOPERATIVE WITH CARE AT TIMES, REFUSING Q2 REPOSITIONS AT THIS TIME, SPOUSE HAS BEEN ABLE TO MAKE SMALL REPOSITIONS WITH HER Q2 UNLESS SLEEPING. PATIENT HAS EXTREME DECONDITIONING, HAS MODERATE DIFFICUTLY WITH SITTING UPRIGHT HER SELF. CARDIAC: PATIENT HAS BEEN ST 110-120'S DENIES CHEST PAIN OR PRESSURE, DOES HAVE PLEURAL PAIN FROM PREVIOUS THORA, IMPROVING, MEDICATING PER MAR. PULM: 3-9L DEPENDING ON SEVERITY OF ANXIETY. PATIENT HAS BEEN NONCOMPLIANT WITH NC AND BREATHING THROUGH HER NOSE. MOUTH BREATHS AND BECOMES TACHAPNIC WITH ANXIETY. THICK SECRETIONS. GI/: PATIENT HAS BEEN DIURESING WELL, PURWIK IN PLACE. ALBUMIN AND LASIX. PATIENT DENIES ABD PAIN. NO BM DURING THIS SHIFT SO FAR, ST TO COME REEVALUATE DUE TO WORSENING SWALLOWING. REFUSING ORAL CARE. SKIN/MS: SCATTERED BRUISING THROUGHOUT, COLD EXTREMS LIKE HANDS AND FEET. EDEMA NOTED UP TO THE MID/UPPER CALF ON BLE. DECONDITIONED EXTREMELY PT/OT ON HOLD TODAY DUE TO MENTATION AND INCREASED LABOR OF BREATHING. FALL: PATIENT HAD A FALL THIS AM SLIDE OFF THE BED TO THE FLOOR, BED ALARM IN USE, HOSPITALIST AWARE OF POSSIBLE NEED FOR RESTRAINT FOR PATIENT SAFETY.
--- NOTE | 2022-07-29 17:43 | NUR ---
END OF SHIFT: ONLY CHANGES FROM ASSUMPTION OF CARE PATIENT HAS BEEN MAINLY ON 7-9L BUT HAS BEEN TOLERATING LOW 3 L AT TIMES, DOES BECOME SOB AND BREATHING TREATMENT AND PAIN EMAR MEDS HELP WITH RATE OF BREATHING AND PLEURAL PAIN FROM THORA. PATIENT HAS BEEN DENYING CHEST PAIN ALL DAY. HAS IMPROVED MENTATION TO 3. PATIENT TOLERATED OT AND ST TODAY INCREASE TO MECH SOFT DIET AND THINS BY SPOON. PATINET HAS TO BE AT 90. STILL REFUSING ORAL CARE. DIFFICULTY WITH LIQUID POTASSIUM. HOSPITALIST WAS GOING TO PUT IN ORDER TO CHANGE TO IV THIS AM. NO NEW ORDERS AT THIS TIME. PATIENT HAS BEEN MORE PLEASANT AND ABLE TO MAKE MORE OF HER NEEDS KNOWN. DECREASED ANX WITH SO AT BEDSIDE.
--- NOTE | 2022-07-29 21:46 | NUR ---
ASSUMPTION OF CARE 1899 THIS RN ASSUMED CARE OF PT AT 1900, REPORT RECEIVED FROM CARLO HERNÁNDEZ. PT LYING IN BED, APPEARS MILDLY ANXIOUS. VSS, ALTHOUGH PT IS BREATHING FAST. SPO2 94% ON 5 L. PT REPORTS SHE IS FEELING SOB, THIS RN INCREASED O2 TO 7 L AND HELPED TO CALM PT. PT REPORTS PAIN IN THROAT AND GENERAL SORENESS. THIS RN ADMINSTERED 50 MCG OF FENTANYL PER EMAR. APPEARS TO PROVIDED RELIEF; PT RELAXED, REPORTS DECREASED PAIN, AND PT NOT SO RESTLESS. PT BOOSTED AND REPOSITIONED IN BED. PUREWICK IN PLACE AND PT HAS GOOD OUTPUT. URINE IS CLEAR YELLOW. NO BREAKDOWN OR REDNESS NOTED. YELLOW GOWN PLACED ON PT, YELLOW NON-SKID SOCKS IN PLACE, BED RAILS UP X3, BED ALARM ON AND CAMERA ON DUE TO FALL X2. WELL PT FORGETTING LIMITATIONS AT TIMES. PT REMINDED TO USE CALL LIGHT AND TO NOT GET OUT OF BED WITH LETTING STAFF KNOW. PT AGREED. CALL LIGHT IN REACH. PT RESTING. JAYCE, SIGNIFICANT OTHER, BACK AT BEDSIDE
--- NOTE | 2022-07-29 21:54 | NUR ---
UPDATE; 1944 PT SPO2 DECREASED TO < 90%, PT RR INCREASED, PT RESTLESS AND TACHYPNEIC. WOB INCREASED. THIS RN AND CHARGE NURSE IN TO ROOM, O2 INCREASED TO 9L. PT RECOVERING SOME, RT NOTIFIED AND IN ROOM. O2 INCREASED. PT IS RECOVERING WELL, AFTER PT RECOVERED O2 BACK DOWN TO 7 L. SPO2 MAINTAINING >90%.
--- NOTE | 2022-07-29 22:13 | NUR ---
UPDATE PT SPO2 DECREASED TO 81%; THIS RN INTO ROOM NC REMOVED FROM PT NOSE. NC REPLACED AND O2 INCREASED. PT DOES NOT APPEAR TO BE IN DISTRESS BUT IS MILDLY ANXIOUS. PT TOOK A FEW MINUTES TO RECOVER, BUT SPO2 >90%. PT IS COMPLAINING OF HER NOSE BEING "VERY DRY AND IRRITATED". LUBRICATION APPLIED TO NOSE. PT REMINDED TO KEEP O2 NC IN NOSE.
[2022-07-30 02:10] LABS: Hematocrit 31.2 % (33.0-51.0); Hemoglobin 10.4 g/dL (11.5-16.0); Mean Corpuscular HGB Conc 33.3 g/dL (31.5-36.5); Mean Corpuscular Volume 99 fL (80-100); Mean Platelet Volume 10.8 fL (9.1-12.4); Platelet Count 154 K/mm3 (150-400); RDW Coefficient Variation 17.5 % (11.7-14.2); RDW Standard Deviation 61.8 fL (35.1-46.3); Red Blood Cell Count 3.15 M/mm3 (3.80-5.20); White Blood Cell Count 9.27 K/mm3 (4.00-11.30)
[2022-07-30 02:40] LABS: Albumin, Blood 3.5 g/dL (3.4-5.0); Anion Gap 6 mmol/L (6-16); Blood Urea Nitrogen 18 mg/dL (8-24); Bun/Creatinine Ratio 23.2 (12.0-20.0); CO2, Blood 32 mmol/L (21-32); Calcium, Blood 8.5 mg/dL (8.5-10.1); Chloride, Blood 101 mmol/L (98-108); Creatinine, Blood 0.78 mg/dL (0.40-1.00); Glomerular Filtration Rate 96 (60-); Glucose, Blood 118 mg/dL (70-99); Phosphorus, Blood 3.3 mg/dL (2.5-4.9); Potassium, Blood 3.6 mmol/L (3.5-5.5); Sodium, Blood 139 mmol/L (136-145); Vancomycin, Trough 20.4 ug/mL (5.0-10.0)
--- NOTE | 2022-07-30 06:15 | NUR ---
SHIFT SUMMARY NO ACUTE CHANGES THROUGHOUT SHIFT. PT SLEPT ON AND OFF. PT REPORTS GENERALIZED PAIN; MEDICATED PER EMAR WELL REPOSITIONING, UNITERRUPTED REST AND WARM BLANKET PROVIDED. PT ALSO HAD A FEW EPISODES OF ANXIETY THROUGHOUT SHIFT. JAYCE, SIGNIFICANT OTHER AT BEDSIDE AND STAYED OVERNIGHT. VSS; HR INCREASES 1 TEENS - 120'S. PT CURRENTLY ON 7 L VIA NC; SPO2 MAINTAINING >90%. OPUREWICK CHANGED AND IN PLACE. PT HAS GOOD OUTPUT THIS SHIFT. PT STILL COUGHING FREQUENTLY, STILL SOUNDS LOOSE AND MOIST. PT HAD ONE EPISODE OF DESATTING, SEE PREVIOUS NURSING NOTE FOR DETAILS. PT TRIED TO LEAN OVER SIDE OF BED A FEW TIMES, BUT REDIRECTABLE. YELLOW GOWN ON PT, NON-SKID SOCKS IN PLACE, BED ALARM ON, SIDE REAILS UP X3, AND CAMERA ON IN ROOM. CALL LIGHT IN REACH
--- NOTE | 2022-07-30 12:52 | NUR ---
Am note Pt anxious, requesting anxiety medication first this this am, pt continues to be anxious t/o am. Pt noncompliant with wearing nc, pt desaturating frequently due to nc being on forehead or chin, educated pt and family to replace in the nose when removed. Pt increased irritability with family and staff, yelling and cussing. Rt at bedside this am, placed bipap for pressure support, pt desaturating to 80's, bipap increased pt anxiety, attempting to pull off bipap repeatly, notified Dr Atkinson, new order for ativan entered. Pt continues to be anxious and refusing to wear bipap, notified , new order to transfer to ICU and precedex; attempted to give increased dose of ativan and pt resting with 9-10l o2 via nc; notified MD, cancel transfer to ICU and precedex. Pt alert, to self, family and place, pt unsure of date, and unclear of event leading up, pt forgetful. Spo2 80-90's desaturating occasionally to 70's, titrating for spo2 >90%, wet, productive cough noted with large amount of sputum, ls coarse t/o and dim to bases, pt breathing labored, shallow and tachypnic 28-40's; encouraged slow deep breathing. Increased coughing noted after thin liquids. Tele sinus tach 110-130's, bp stable. Pt has purewick in place, incontinent otherwise. Abd firm, nontender, with hypoactive bt. Scattered scabs and bruising noted, ble mottled noted. Other vss. No other acute changes noted. Will continue to monitor.
--- NOTE | 2022-07-30 17:58 | NUR ---
Shift Summary Pt continues to be anxious, attempted xanax, pt continues to have increased anxiety, medicated with ativan this afternoon, notified Dr Atkinson new orders to d/c xanax and continue with ativan. No bm noted since 07/26, medicated with milk of mag per orders. Pt moving in bed, repositioned t/o shift. Oral care complete t/o shift. Other vss. No other acute changes noted, will continue to monitor.
[2022-07-31 04:29] LABS: Bun/Creatinine Ratio 22.9 (12.0-20.0); Calcium, Blood 8.7 mg/dL (8.5-10.1); Creatinine, Blood 0.74 mg/dL (0.40-1.00); Potassium, Blood 3.1 mmol/L (3.5-5.5)
--- NOTE | 2022-07-31 05:39 | NUR ---
SHIFT SUMMARY ASSUMED CARE OF PT AT 1900. PT IS A/OX2. PT WAS VERY DISTRAUGHT AND AXNIOUS AT THE START OF SHIFT. CAMERA MONITORING NOTED THAT PT WAS KICKING AT PT . PT WAS VERBALLY ABUSIVE TO TELLING HIM TO "SHUT UP", AND TO "FUCK OFF". BUT NEVER TO STAFF. PT KEPT REPEATING SHE DID NOT WANT TO . PT WAS GIVEN ATIVAN WITH NO RESULTS. LUNG SOUNDS COARSE AND PT WAS ON 10L NC. PT HR WAS IN THE 120-130 UNTIL MIDNIGHT WHEN SHE FINALLY FELL ASLEEP THEN HER RATE WAS 110S. PT SLEPT MOST OF THE NIGHT.
--- NOTE | 2022-07-31 08:41 | NUR ---
ASSUMED CARE OF PT AT 0700, REPORT FROM DEIRDRE MATOS. BY THIS ELECTRICIAN SECOND, PT APPEARS LESS ANXIOUS, WITH SHORTER BOUTS OF ANXIETY THIS MORNING AND DECREASED YELLING OUT. RR ABOUT 30, TOLERATING NC W/O ISSUE. PT REPORTS ANXIETY BUT IS CLOSING EYES AND TAKING EASY BREATHS ALTHOUGH TACHYPNEIC. REMAINS AT BEDSIDE. SHE IS ON 9LO2 SATTING 89-95. PT ENCOURAGED TO TAKE DEEP BREATHS AND BREATHE THROUGH HER NOSE.
[2022-07-31 17:38] LABS: Vancomycin, Trough 11.4 ug/mL (5.0-10.0)
--- NOTE | 2022-07-31 18:24 | NUR ---
END OF SHIFT SUMMARY. PT HAS BEEN FAIRLY CALM THROUGHOUT SHIFT, WITH SIGNIFICANTLY DECREASED ANXIETY AND BETTER COPING MECHANISMS. USING HUMOR A RELIEF METHOD. PT DID NOT RECIEVE ANY ATIVAN THIS SHIFT, AND WAS MEDICATED FOR PAIN WITH 25 MCG FENTANYL TWICE. SHE DID GET ONE PRN DOSE OF 25 MG SEROQUEL WHICH SEEMED TO RELAX HER. RR AND OXYGENATION HAS IMPROVED, PT IS CURRENTLY ON 7LO2 SATTING IN MID-HIGH 90S. SHE DOES DESAT AT TIMES WITH AGITATION AND ANXIETY, AND WHEN SUPINE. NEUROLOGICALLY PT SEEMS MORE ORIENTED, UNDERSTANDS WHERE SHE IS AND WHY SHE IS HERE. STILL IS NOT HAPPY ABOUT BEING IN THE HOSPITAL BUT LESS CONFUSED AND DOES NOT BECOME AGITATED. EASILY REORIENTED WHEN ANXIOUS. HR HAS BEEN 110S-130. BPS HAVE BEEN STABLE. STILL INCONTINENT DUE TO WEAKNESS, Q2HR ATTENDS CHANGES, AND PT HAS HAD SIGNIFICANT URINE OUTPUT AND MULTIPLE BOWEL MOVEMENTS. STRENGTH IS IMPROVING AND PT HAS SAT UP ON HER OWN A FEW TIMES WITHOUT ASSISTANCE BUT CANNOT HOLD HERSELF UP FOR MORE THAN A FEW SECONDS. NO OTHER SIGNIFICANT CHANGES.
[2022-08-01 03:49] LABS: Hematocrit 33.2 % (33.0-51.0); Hemoglobin 11.3 g/dL (11.5-16.0); Mean Corpuscular HGB 32.7 pg (26.0-34.0); Mean Corpuscular Volume 96 fL (80-100); Platelet Count 221 K/mm3 (150-400); RDW Coefficient Variation 17.2 % (11.7-14.2); RDW Standard Deviation 60.2 fL (35.1-46.3); Red Blood Cell Count 3.46 M/mm3 (3.80-5.20); White Blood Cell Count 9.78 K/mm3 (4.00-11.30)
[2022-08-01 04:26] LABS: Bun/Creatinine Ratio 30.9 (12.0-20.0); Calcium, Blood 8.8 mg/dL (8.5-10.1); Creatinine, Blood 0.71 mg/dL (0.40-1.00); Potassium, Blood 3.5 mmol/L (3.5-5.5)
--- NOTE | 2022-08-01 06:36 | NUR ---
SHIFT SUMMARY ASSUMED CARE OF PT AT 1900. PT IS A/OX3. THIS NURSE NOTED THAT PT IS BETTER TONIGHT MENTALLY. PT ABLE TO HOLD A CONVERSATION AND MAKE EYE CONTACT. PT UPSET ABOUT FEELING WEAK AND COUGHING WHEN DRINKING WATER. PT UPSET THAT SHE CANT GET OUT OF BED TO USE BSC. PT WAS INCONTINET BY CHOICE, REFUSING BEDPAN. LUNG SOUNDS HAVE CRACKLES AT BASES. PT WAS TITRATED BETWEEN 7-11L NC. PT DID NOT SLEEP WELL TONIGHT. PT WAS RESTLESS. PRN SEROQUEL GIVEN AND PT GOT A COUPLE HOURS OF SLEEP. AT BEDSIDE HELPING WITH CARE. PT MORE RECEPTIVE TO HUSBANDS HELP THIS NOC.
--- NOTE | 2022-08-01 17:32 | NUR ---
SHIFT SUMMARY PT AWAKE AND ALERT MOST OF THE DAY WITH A FEW EPISODES OF ANXIETY THAT PT ABLE TO CONTROL WITH ENCOURAGEMENT AND STAFF OR S.O. PRESENCE. O.T. IN AND WORKED WITH PT THIS MORNING AND SHE WAS ABLE TO SIT UP ON SIDE OF BED AND GIVE HERSELF A SPONGE BATH AND THEN GET UP TO [facility] TO URINATE AND THEN BACK TO BED WITH 1 PERSON ASSIST USING GAIT BELT. NO REPORTS OF FEELING DIZZY OR LIGHTHEADED WHILE SITTING UP. ABLE TO REPOSITION UPPER BODY WHILE IN BED ON HER OWN. PUREWICK IN PLACE AND FUNCTIONING WELL BUT WITH OVERFLOW. SUCTION INCREASED BY 10 TO REDUCE OVERFLOW. SKIN MOSTLY INTACT WITH SCATTERED BRUISING AND LEGS APPEARING MOTTLED. PT STATES SKIN ALWAYS APPEARS THAT WAY. HR IN LOW 110-120'S TODAY. HAS APPEARED TO HAVE A GOOD ATTITUDE AND BEHAVIORS APPROPRIATE.
--- NOTE | 2022-08-02 05:44 | NUR ---
SHIFT SUMMARY NO ACUTE CHANGES THIS SHIFT. VSS. AXO. COOPERATIVE. PLEASANT. S.O. AT BEDSIDE. PT GOT OOB THIS SHIFT W/OUT INCIDENT. HAS NOT REQUIRED ANY PRN SEROQUEL THIS SHIFT, ONE DOSE ATIVAN ADMINISTERED TO APPROPRIATE EFFECT. PT NOT IMPULSIVE. NO LONGER ON CAMERA MONITORING. BED ALARM REMAINS ON. TOLERATING PO WELL. OTHERWISE, PT RESTING THIS SHIFT. REMAINS IN ISOLATION.
[2022-08-02 06:08] LABS: Vancomycin, Trough 10.8 ug/mL (5.0-10.0)
--- NOTE | 2022-08-02 14:54 | NUR ---
PATIENT C/O FEELING HOT, SWEATY, AND WORSE THAN SHE WAS THIS MORNING. PATIENT WAS DIAPHORETIC. BP AT 1444 WAS 81/66. RN EMBEDDED NOTIFIED. BLOOD GLUCOSE WAS 129. ORAL TEMP 97.7. DR. BRICEÑO NOTIFIED BY PHONE. ORDERS TO DC IV LASIX AND TO MONITOR BLOOD PRESSURE. DR. BRICEÑO ASKED TO BE NOTIFIED IF MAP FALLS BELOW 65. PATIENT IS ENCOURAGED TO DRINK WATER. BLOOD PRESSURES ARE BEING CHECKED EVERY 15 MINUTES. PATIENT'S SO IS AT THE BEDSIDE
--- NOTE | 2022-08-02 18:16 | NUR ---
PATIENT IS ALERT AND ORIENTED AND COOPERATIVE WITH CARE. ON 4L O2 VIA NC. C/O SORES IN HER MOUTH FROM BEING INTUBATED. HAS A POOR APPETITE. DRINKS VERY LITTLE. PATIENT WAS GETTING IV LASIX PER EMAR. THIS AFTERNOON SHE C/O FEELING WORSE THAN THIS MORNING, FEELING HOT AND SWEATY. BP WAS 80/62. DR. BRICEÑO NOTIFIED AND ORDERED TO MONITOR BP AND MAP AND TO CALL HIM IF THE MAP FALLS BELOW 65. THE PATIENT'S VITALS HAVE REMAINED STABLE TO THIS POINT. THE PATIENT HAS BEEN ENCOURAGED TO DRINK WATER. SHE HAS FINISHED 400 ML SO FAR WITH LOTS OF ENCOURAGEMENT. PATIENT C/O FEELING ANXIOUS AND MEDICATED PER EMAR. SHE WORKED WITH OT THIS MORNING AND [facility] TO [facility] FOR A SHORT AMOUNT OF TIME. UP TO THE BSC. S/O IS AT THE BEDSIDE. WILL CONTINUE TO MONITOR
[2022-08-03 04:51] LABS: Percent Saturation 15.4 % (15.0-50.0)
[2022-08-03 04:53] LABS: Bun/Creatinine Ratio 26.7 (12.0-20.0); Calcium, Blood 8.6 mg/dL (8.5-10.1); Creatinine, Blood 0.75 mg/dL (0.40-1.00); Potassium, Blood 4.4 mmol/L (3.5-5.5)
--- NOTE | 2022-08-03 06:43 | NUR ---
ASSUMED CARE OF PT AT 1900. SHE IS ALERT AND ORIENTED X4, THOUGH APPEARS AGITATED/ANXIOUS. SHE HAS BEEN SINUS TACH IN THE 110S ON TELE, SHE IS ON 4L BY NC AND SATTING >94% BUT DOES DESAT WITH EXERTION OR WHEN OXYGEN IS TITRATED. HER BP HAS BEEN LOW BUT MAP REMAINS >65. PT REPORTS FEELING RESTLESS AT NIGHT SO WAS GIVEN 5 MG PO MELATONIN AND WAS ABLE TO SLEEP. SHE IS A 1PA TO THE [facility] AND DENIES ANY DIZZINESS. SHE IS RECEIVING IV CEFEPIME AND VANCO. PT CONTINUES TO REPORT PAIN TO THE SITE OF HER THORACENTESIS ALONG WITH A "SPLITTING HEADACHE" THAT APPEARS TO RESOLVE WITH TYLENOL, REST, AND SOME CAFFEINE. SHE STARTED COMPLAINING OF "PRESSURE" IN HER EARS AND WAS GIVEN SOME HUMIBID. PT REPORTS PAIN IN HER THROAT BUT IS REFUSING THE THROAT SPRAY. PT'S AT BEDSIDE ASSISTING WITH MOST CARE.
--- NOTE | 2022-08-03 17:17 | NUR ---
SHIFT SUMMARY NO ACUTE CHANGES DURING SHIFT. PT ALERT AND ORIENTED, CALLS APPROPRIATELY. PTS BP REMAINS LOW, SBP 80-90'S, MAP REMAINS > 65. DIET ADVANCED BY ST TODAY TO SOFT BITE SIZED, NO STRAWS. LASIX TRANSITIONED TO PO. AT BEDSIDE MAJORITY OF SHIFT, HELPS WITH CARE. PT MEDICATED WITH PRN SEROQUEL X 1. WILL CONTINUE TO MONITOR. CALL LIGHT WITHIN REACH.
--- NOTE | 2022-08-04 06:36 | NUR ---
RING MAKER SUMMARY ASSUMED CARE OF THE PT AT 1900. SHE IS ALERT AND ORIENTED X4 AND DID NOT APPEAR ANXIOUS ON INITIAL ASSESSMENT. THROUGHOUT THE NIGHT, HER ANXIETY APPEARS TO HAVE INCREASED BUT THIS RN DID NOT MEDICATE WITH PRN ATIVAN DUE TO PT'S CONTINUALLY LOW BP. PT REPORTS THAT HER BP IS NORMALLY THIS LOW AT HOME. SHE HAS BEEN SINUS TACH ON TELE WITH NO ACUTE EVENTS. PT GIVEN NIGHTLY SEROQUEL AND MELATONIN BUT REPORTS DIFFICULTY SLEEPING THROUGH THE NIGHT DUE TO FEELING RESTLESS. PT AT AND HAS BEEN ASSISTING PT IN RELAXATION AND TRANSFERRING TO THE [facility]. PT CONTINUES TO HAVE PO WATER INTAKE. SHE APPEARS WELL THIS AM AND REPORTS FEELING IMPROVED.
--- NOTE | 2022-08-04 07:32 | NUR ---
ASSUMED CARE: PT RESTING QUIETLY IN BED. SINUS TACH AT 103 ON TELE. 3L ON NC SATTING 98%. TITRATED O2 DOWN TO 2L. SIGNIFICAN OTHER AT BEDSIDE. NO ACUTE NEEDS OR CONCERNS AT THIS TIME.
--- NOTE | 2022-08-04 08:55 | NUR ---
PT GOT AGITATED WITH MED PASS. REFUSED POTASSIUM BECAUSE "THAT S--- IS NASTY!" OFFERED TO MIX WITH SOMETHING FOR BETTER TASTE BUT PT DECLINED. ASKED "WHY DO I HAVE TO TAKE ALL THESE PILLS? I'M NOT A PILL POPPER!" EXPLAINED THAT MANY OF THESE MEDS ARE MEDICATIONS THAT ARE TREATING OR PREVENTING ISSUES SUCH HEPARIN FOR CLOTS AND PEPCID FOR ULCERS AND THEN VITAMINS AND SOME OF THESE MEDS SHE LIKELY WON'T NEED AT DISCHARGE. ASKED WHAT A REHAB MEANS AND EXPLAINED THAT IT IS INPATIENT FOR THERAPY AND PT STATED SHE WOULDN'T GO THERE. S.O EXPLAINED DR WILL DISCUSS OPTIONS WITH HER AND CARE MANAGEMENT TOMORROW BECAUSE SHE IS GETTING CLOSER TO DISCHARGE. FACTORY MANAGER CAME INTO ROOM AND DISCUSSED SHOWER. PT AGREED. ABX ON HOLD UNTIL AFTER SHOWER
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
--- NOTE | 2022-08-05 05:40 | NUR ---
SHIFT SUMMARY NO ACUTE CHANGES THIS SHIFT. VSS. AXO. S.O REMAINS AT BEDSIDE FOR ASSISTANCE AND SUPPORT. PT WITH MUCH LESS ANXIETY. TOLERATED NEW SEROQUEL HS DOSE WELL. MED NO TELE STATUS. PT TO BSC THIS SHIFT, NO INCIDENT, SLOWLY REGAINING STRWENGTH. PT OTHERWISE HAS RESTED MUCH POSSIBLE TODAY. PT STATES TRYING TO "REGAIN HER NORMAL SLEEP SCHEDULE". PT COOPERATIVE AND PLEASANT. REMAINS IN ISOLATION.
[2022-08-05 06:27] LABS: Bun/Creatinine Ratio 14.8 (12.0-20.0); Calcium, Blood 8.4 mg/dL (8.5-10.1); Creatinine, Blood 0.61 mg/dL (0.40-1.00)
[2022-08-05] MEDS ORDERED: Acetaminophen325 M1 PO (10:52)
[2022-08-05] MEDS ORDERED: BENZ100A PO (10:52)
[2022-08-05] MEDS ORDERED: MULVITA PO (10:53)
[2022-08-05] MEDS ORDERED: QUET100 PO (10:53)
[2022-08-05] MEDS ORDERED: FURO20 PO (10:53)
[2022-08-05] MEDS ORDERED: FERSU300 PO (10:53)
[2022-08-05] MEDS ORDERED: NASAL SPRAY88 ML (10:54)
[2022-08-05] MEDS ORDERED: POTA10T PO (10:54)
[2022-08-05] MEDS ORDERED: METF500 PO (10:54)
--- NOTE | 2022-08-05 13:15 | NUR ---
DISCHARGE: PT HAS BEEN CLEARED FOR DISCHARGE HOME ON OXYGEN. IV ACCESS DC'd WNL. PT PROVIDED WITH DC PAPERWORK AND INSTRUCTIONS, PT V/U. OXYGEN DELIVERED TO PT IN ROOM. PT ESCORTED FROM UNIT VIA W/C IN NAD.
== END 2022-08-05 13:07 | disposition home health service (06) | DRG 870 ==
LOC: ER 12:21 → ERHOLD 12:22 → MEDS 23:37 → ICUE 07-09 04:00 → PCU 07-09 08:00 → ICUE 07-09 08:01 → PCU 07-27 13:06
PROVIDERS: Emergency Medicine; Internal Medicine; Internal Medicine Critical Care Medicine; Nurse Practitioner Acute Care; Student in an Organized Health Care Education/Training Program; ADMIT Hospitalist
PROC: 3E03329 Introduction of Other Anti-infective into Peripheral Vein, Percutaneous Approach (ICD-10-PCS; principal; 2022-07-09)
PROC: 3E033XZ Introduction of Vasopressor into Peripheral Vein, Percutaneous Approach (ICD-10-PCS; 2022-07-09)
PROC: 5A1955Z Respiratory Ventilation, Greater than 96 Consecutive Hours (ICD-10-PCS; 2022-07-09)
PROC: 5A09357 Assistance with Respiratory Ventilation, Less than 24 Consecutive Hours, Continuous Positive Airway Pressure (ICD-10-PCS; 2022-07-09)
PROC: 0BH18EZ Insertion of Endotracheal Airway into Trachea, Via Natural or Artificial Opening Endoscopic (ICD-10-PCS; 2022-07-09)
PROC: 02HV33Z Insertion of Infusion Device into Superior Vena Cava, Percutaneous Approach (ICD-10-PCS; 2022-07-09)
PROC: 0W9930Z Drainage of Right Pleural Cavity with Drainage Device, Percutaneous Approach (ICD-10-PCS; 2022-07-26)
DX: A41.01 Sepsis due to Methicillin susceptible Staphylococcus aureus (principal); G92.8 Other toxic encephalopathy; J10.01 Influenza due to other identified influenza virus with the same other identified influenza virus pneumonia; J96.01 Acute respiratory failure with hypoxia; R65.21 Severe sepsis with septic shock; R57.0 Cardiogenic shock; J15.212 Pneumonia due to Methicillin resistant Staphylococcus aureus; N17.9 Acute kidney failure, unspecified; N39.0 Urinary tract infection, site not specified; J91.8 Pleural effusion in other conditions classified elsewhere; A41.89 Other specified sepsis; Z20.822 Contact with and (suspected) exposure to COVID-19; R55 Syncope and collapse; F41.9 Anxiety disorder, unspecified; I11.0 Hypertensive heart disease with heart failure; I27.20 Pulmonary hypertension, unspecified; F15.10 Other stimulant abuse, uncomplicated; F10.20 Alcohol dependence, uncomplicated; F17.210 Nicotine dependence, cigarettes, uncomplicated; E87.5 Hyperkalemia; I50.811 Acute right heart failure; Z66 Do not resuscitate; B96.20 Unspecified Escherichia coli [E. coli] as the cause of diseases classified elsewhere; D69.59 Other secondary thrombocytopenia; T36.8X5A Adverse effect of other systemic antibiotics, initial encounter
CPT/HCPCS: 0241U; 31500; 31720; 36415; 36569; 36600; 51702; 70450; 71045; 71046; 71260; 74230; 80048; 80053; 80069; 80076; 80202; 81001; 82042; 82140; 82330; 82728; 82803; 82945; 82947; 83036; 83540; 83550; 83605; 83615; 83735; 83880; 83986; 84100; 84132; 84157; 84484; 85025; 85027; 85610; 87040; 87070; 87077; 87086; 87147; 87186; 87205; 89051; 92526; 92610; 92611; 93005; 93010; 93306; 93308; 93312; 93321; 93325; 94002; 94003; 94640; 94660; 94664; 94760; 94761; 94762; 96374; 96375; 96376; 97110; 97162; 97166; 97530; 97535; 99285-25; A9270; C1751; G0378; J0610; J0692; J0696; J1250; J1265; J1644; J1650; J1720; J1815; J1940; J2020; J2060; J2370; J2405; J2704; J2765; J3010; J3370; J3411; J3475; J3480; J7030; J7040; J7050; J7060; P9047; Q9967

== ENCOUNTER 2022-11-14 19:49 | Emergency (ER) | payer MEDICARE, OTHER ==
[~2022-11-14] VITALS: Ht 154.9 cm; Wt 55.8 kg
[~2022-11-14 19:49] MED LIST changes: +Acetaminophen325 M1 PO; +BENZ100A PO; +FERSU300 PO; +FURO20 PO; +METF500 PO; +MULVITA PO; +NASAL SPRAY88 ML; +POTA10T PO; +QUET100 PO
[2022-11-14 22:00] VITALS: BP 111/73
== END 2022-11-14 22:11 | disposition home or self-care (01) ==
LOC: ER 19:49
DX: S30.1XXA Contusion of abdominal wall, initial encounter (principal); X58.XXXA Exposure to other specified factors, initial encounter; Z88.8 Allergy status to other drugs, medicaments and biological substances; Z79.899 Other long term (current) drug therapy; I50.9 Heart failure, unspecified; F17.210 Nicotine dependence, cigarettes, uncomplicated
CPT/HCPCS: 74176; 96372; 99284-25; J1885

== ENCOUNTER → 2024-03-18 | Outpatient (CLI) | payer MEDICARE, OTHER ==
[2024-03-18 10:49] LABS: BASOPHILS ABSOLUTE AUTO 0.04 K/mm3 (0.00-0.23); BASOPHILS PERCENT AUTO 0 % (0-2); EOSINOPHILS ABSOLUTE AUTO 0.07 K/mm3 (0.00-0.68); EOSINOPHILS PERCENT AUTO 1 % (0-6); Hematocrit 45.6 % (33.0-51.0); Hemoglobin 15.3 g/dL (11.5-16.0); IMMATURE GRAN ABSOLUTE AUTO 0.04 K/mm3 (0.00-0.10); IMMATURE GRAN PERCENT AUTO 0 % (0-1); LYMPHOCYTES ABSOLUTE AUTO 2.83 K/mm3 (0.84-5.20); LYMPHOCYTES PERCENT AUTO 25 % (21-46); MONOCYTES ABSOLUTE AUTO 0.58 K/mm3 (0.16-1.47); MONOCYTES PERCENT AUTO 5 % (4-13); Mean Corpuscular HGB Conc 33.6 g/dL (31.5-36.5); Mean Corpuscular Volume 95 fL (80-100); Mean Platelet Volume 10.5 fL (9.1-12.4); NEUTROPHILS PERCENT AUTO 69 % (41-73); Platelet Count 200 K/mm3 (150-400); RDW Coefficient Variation 14.4 % (11.7-14.2); RDW Standard Deviation 49.9 fL (35.1-46.3); Red Blood Cell Count 4.78 M/mm3 (3.80-5.20); White Blood Cell Count 11.56 K/mm3 (4.00-11.30)
[2024-03-18 11:06] LABS: Albumin, Blood 3.1 g/dL (3.4-5.0); Albumin/Globulin Ratio 0.9 (0.8-1.8); Bilirubin, Total 0.5 mg/dL (0.1-1.0); Bun/Creatinine Ratio 16.3 (12.0-20.0); Calcium, Blood 8.5 mg/dL (8.5-10.1); Creatinine, Blood 0.86 mg/dL (0.40-1.00); Globulin, Blood 3.6 g/dL (2.2-4.0); Potassium, Blood 4.2 mmol/L (3.5-5.5); Total Protein, Blood 6.7 g/dL (6.4-8.2)
== END | disposition home or self-care (01) ==
LOC: LAB 10:42 → LAB SHORT 10:42
PROVIDERS: Physician Assistant
DX: R06.02 Shortness of breath (principal)
CPT/HCPCS: 80053; 83880; 84484; 85025

== ENCOUNTER 2024-06-16 22:20 | Inpatient (IN) | payer MEDICARE, OTHER ==
[~2024-06-16] VITALS: Ht 154.9 cm; Wt 60.3 kg
[2024-06-16] MEDS ORDERED: Ipratropium/Albuterol SulF 2.5-0.5MG/3 ML Amp INH ONE (22:45)
[2024-06-16] MEDS ORDERED: MethylPREDNISolone Sod Succ 125 MG Vial IV ONE (22:50)
[2024-06-16] MEDS ORDERED: NS 1,000 ML IV SCH (22:50)
[2024-06-16 22:54] LABS: BASOPHILS ABSOLUTE AUTO 0.07 K/mm3 (0.00-0.23); BASOPHILS PERCENT AUTO 0 % (0-2); EOSINOPHILS ABSOLUTE AUTO 0.02 K/mm3 (0.00-0.68); EOSINOPHILS PERCENT AUTO 0 % (0-6); Hematocrit 50.4 % (33.0-51.0); Hemoglobin 16.8 g/dL (11.5-16.0); IMMATURE GRAN ABSOLUTE AUTO 0.19 K/mm3 (0.00-0.10); IMMATURE GRAN PERCENT AUTO 1 % (0-1); LYMPHOCYTES ABSOLUTE AUTO 3.79 K/mm3 (0.84-5.20); LYMPHOCYTES PERCENT AUTO 12 % (21-46); MONOCYTES ABSOLUTE AUTO 1.13 K/mm3 (0.16-1.47); MONOCYTES PERCENT AUTO 4 % (4-13); Mean Corpuscular HGB 30.9 pg (26.0-34.0); Mean Corpuscular HGB Conc 33.3 g/dL (31.5-36.5); Mean Corpuscular Volume 93 fL (80-100); Mean Platelet Volume 10.6 fL (9.1-12.4); NEUTROPHILS ABSOLUTE AUTO 25.59 K/mm3 (1.96-9.15); NEUTROPHILS PERCENT AUTO 83 % (41-73); Platelet Count 308 K/mm3 (150-400); RDW Coefficient Variation 15.5 % (11.7-14.2); RDW Standard Deviation 52.1 fL (35.1-46.3); Red Blood Cell Count 5.44 M/mm3 (3.80-5.20); White Blood Cell Count 30.79 K/mm3 (4.00-11.30)
[2024-06-16 23:34] LABS: Influenza A, PCR NEGATIVE (NEGATIVE); Influenza B, PCR NEGATIVE (NEGATIVE); Resp Syncytial Virus, PCR NEGATIVE (NEGATIVE); SARS-Cov-2 (COVID-19) PCR, MMC NEGATIVE (NEGATIVE)
[2024-06-16 23:51] LABS: Source, Urine Clean Catch
[2024-06-16 23:53] LABS: Bilirubin, Urine Neg (Neg); Blood, Urine Neg (Neg); Glucose Qualitative, Urine Neg (Neg); Ketones, Urine Neg (Neg); Leukocyte Esterase, Urine Neg (Neg); Nitrite, Urine Neg (Neg); Protein, Urine 1+ (Neg); Urobilinogen, Urine NORM (Normal)
[2024-06-16 23:59] LABS: Thyroid Stimulating Hormone 14.1 uIU/mL (0.360-4.800)
[2024-06-17 00:05] LABS: Albumin, Blood 3.1 g/dL (3.4-5.0); Albumin/Globulin Ratio 0.8 (0.8-1.8); Bilirubin, Total 0.8 mg/dL (0.1-1.0); Bun/Creatinine Ratio 33.5 (12.0-20.0); Calcium, Blood 8.2 mg/dL (8.5-10.1); Creatinine, Blood 0.84 mg/dL (0.40-1.00); Globulin, Blood 3.7 g/dL (2.2-4.0); Potassium, Blood 4.4 mmol/L (3.5-5.5); Total Protein, Blood 6.8 g/dL (6.4-8.2)
[2024-06-17 00:09] LABS: Appearance, Urine Clear (Clear); Color, Urine Yellow (P-Yellow)
[2024-06-17] MEDS ORDERED: CefTRIAXone Sodium 1,000 MG in NS 50 ML IV ONE (00:10)
[2024-06-17] MEDS ORDERED: Acetaminophen 500 MG Tab PO ONE (00:45)
[2024-06-17] MEDS ORDERED: Vancomycin HCL 1,500 MG in NS 250 ML IV ONE (00:45)
[2024-06-17] MEDS ORDERED: AmLODIPine Besylate 5 MG Tab PO ONE (01:25)
[2024-06-17] MEDS ORDERED: FLU VACC TS2024-25(6MOS UP)/PF 45 MCG/0.5 ML SYRINGE IM ONE (01:50)
[2024-06-17] MEDS ORDERED: Ondansetron 4 MG TAB PO PRN (01:50)
[2024-06-17] MEDS ORDERED: PNEUMOC 20-VAL CONJ-DIP CRM/PF 0.5 ML SYRINGE IM ONE (01:55)
[2024-06-17] MEDS ORDERED: NS 1,000 ML IV SCH (02:00)
[2024-06-17 02:08] LABS: Free Thyroxine 1.08 ng/dL (0.70-1.60); Triiodothyronine, Free 4.81 pg/mL (2.18-3.98)
[2024-06-17 02:49] LABS: D-Dimer, Quantitative 2.8 mg/L FEU (0.00-0.52); International Normalized Ratio 1.12; Prothrombin Time Results 11.9 Sec (9.7-11.5)
[2024-06-17 03:00] VITALS: BP 141/110
[2024-06-17] MEDS ORDERED: Ampicillin Sod/Sulbactam Sod 3 GM in NS 100 ML IV SCH ×2 (03:02→14:00)
[2024-06-17] MEDS ORDERED: Benzonatate 100 MG Cap PO PRN (03:25)
[2024-06-17] MEDS ORDERED: Albuterol 2.5 MG/3 ML VIAL INH PRN (04:10)
--- NOTE | 2024-06-17 04:29 | NUR ---
ADMIT NOTE/ SHIFT SUMMARY REPORT WAS RECEIVED FROM ER AND PT WAS TRANSPORTED DOWN TO ROOM 354 VIA GURNEY. PT WAS ABLE TO STAND UP AND WALK TO THE BED. SHE C/O SOB ON EXERTION. NO C/O PAIN. REMAINS ON TELEMETRY AT ST AT A RATE OF 103. CONTINUES ON A CONTINUOUS PULSE OX. SHES VERY SLEEPY AND HAS A HARD TIME STAYING AWAKE WHEN TALKED TO. REMAINS ON O2 AT 2L VIA NC SATTING AT 94%. STATED THAT O2 SATS SHOULD BE BETWEEN 88-92%. 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 REMAINS ON VANCO AND UNASYN. BP REMAINS ELEVATED AT 146/101. NO FURTHER C/O HEADACHES. SHE WAS ORIENTED TO ROOM AND STAFF. SHE KEPT FALLING ASLEEP WHEN I WAS ASKING HER THE ADMIT QUESTIONS. NO C/O CHEST PAIN ON ADMIT. SLEEPING IN BED AT THIS TIME WITH ROBBI GÓMEZ IN REACH
[2024-06-17] MEDS ORDERED: Acetaminophen 325 MG TABLET PO PRN (04:35)
--- NOTE | 2024-06-17 04:57 | NUR ---
PTS D DIMER CAME BACK AT 2.80 AND TROP CAME BACK AT 12. CALLED DR. LUCIO AND INFORMED HIM AND HE STATED THAT HE WOULD PUT ORDERS IN FOR HER.
[2024-06-17 05:05] LABS: BASOPHILS ABSOLUTE AUTO 0.04 K/mm3 (0.00-0.23); BASOPHILS PERCENT AUTO 0 % (0-2); EOSINOPHILS PERCENT AUTO 0 % (0-6); Hematocrit 46.4 % (33.0-51.0); Hemoglobin 15.9 g/dL (11.5-16.0); IMMATURE GRAN ABSOLUTE AUTO 0.16 K/mm3 (0.00-0.10); IMMATURE GRAN PERCENT AUTO 1 % (0-1); LYMPHOCYTES ABSOLUTE AUTO 1.43 K/mm3 (0.84-5.20); LYMPHOCYTES PERCENT AUTO 6 % (21-46); MONOCYTES ABSOLUTE AUTO 0.19 K/mm3 (0.16-1.47); MONOCYTES PERCENT AUTO 1 % (4-13); Mean Corpuscular HGB Conc 34.3 g/dL (31.5-36.5); Mean Corpuscular Volume 90 fL (80-100); Mean Platelet Volume 10.3 fL (9.1-12.4); NEUTROPHILS ABSOLUTE AUTO 20.93 K/mm3 (1.96-9.15); NEUTROPHILS PERCENT AUTO 92 % (41-73); Platelet Count 254 K/mm3 (150-400); RDW Coefficient Variation 15.2 % (11.7-14.2); RDW Standard Deviation 49.4 fL (35.1-46.3); Red Blood Cell Count 5.13 M/mm3 (3.80-5.20); White Blood Cell Count 22.75 K/mm3 (4.00-11.30)
[2024-06-17 05:36] LABS: Albumin/Globulin Ratio 0.9 (0.8-1.8); Bilirubin, Total 0.8 mg/dL (0.1-1.0); Bun/Creatinine Ratio 36.8 (12.0-20.0); Creatinine, Blood 0.65 mg/dL (0.40-1.00); Globulin, Blood 3.4 g/dL (2.2-4.0); Potassium, Blood 4.5 mmol/L (3.5-5.5); Total Protein, Blood 6.4 g/dL (6.4-8.2)
--- NOTE | 2024-06-17 06:36 | NUR ---
PT WAS BROUGHT DOWN FOR CT PE STUDY.
--- NOTE | 2024-06-17 06:51 | NUR ---
CT WAS UNABLE TO DO R/T NEEDS NEW IV
[2024-06-17 07:25] VITALS: BP 140/103
[2024-06-17] MEDS ORDERED: DEXTROMETHORPHAN/BENZOCAINE 1 EACH LOZENGE MT PRN (08:25)
[2024-06-17] MEDS ORDERED: Nicotine Polacrilex 2 MG Gum PO PRN (08:30)
[2024-06-17] MEDS ORDERED: Sennosides 8.6 MG Tab PO SCH (09:00)
[2024-06-17] MEDS ORDERED: Docusate Sodium 100 MG Cap PO SCH (09:00)
[2024-06-17] MEDS ORDERED: Lactobacil 2-S.Thermo-Bifido 1 1 Cap PO SCH (09:00)
[2024-06-17] MEDS ORDERED: Enoxaparin 40 MG/0.4 ML SYR SC SCH (09:00)
[2024-06-17 12:14] VITALS: BP 134/94
[2024-06-17] MEDS ORDERED: Vancomycin HCL 1,000 MG in NS 250 ML IV SCH (15:00)
[2024-06-17 15:42] VITALS: BP 138/84
[2024-06-17] MEDS ORDERED: LOSARTAN POTASS25 M2 PO (16:06)
[2024-06-17] MEDS ORDERED: ALBU90OI INH (16:06)
[2024-06-17] MEDS ORDERED: METO50ER PO (16:07)
--- NOTE | 2024-06-17 19:19 | NUR ---
SHIFT SUMMARY PATIENT A/OCX4, ABLE TO MAKE NEEDS KNOWN. PLEASANT AND COOPERATIVE WITH CARE. SPEECH THERAPY ASSESSED PATIENT THIS AFTERNOON, FULL LIQUID DIET ORDERED DUE TO NO DENTURE BEING PRESENT AND IS PATIENT'S PREFERENCE. ORDER TO INCREASE DIET TO PURREED AT PATIENT'S LEISURE. TELEMETRY IN PLACE, SINUS TACH, ONE 6 SECOND RUN OF SVT OCCURRED THIS AM. MD NOTIFIED, NO NEW ORDERS AT THAT TIME. PATIENT COMPLAINING OF "HEART RACING" AND INCREASED SOB AT THAT TIME. PATIENT REMOVED FORM SUPPLEMENTAL OXYGEN THIS AM, TOELRATED WELL UNTIL AMBULATED TO BATHROOM AND PATIENT BECAME ANXIOUS, TEARFUL, COMPLAINING OF HER "THROAT CLOSING". SPO2 WAS >90% AT THAT TIME, 2 LPM VIA NASAL CANNULA PLACED BACK ON PATIENT AND PATIENT INSTRUCTED TO TAKE SLOW DEEP BREATHS AND WAS ABLE TO RELIVE PATIENT'S ANXIETY. PRN COUGH DROPS AND TESSALON PEARLES ADMINISTERED PER SEP ADN EFFECTIVE. PATIENT REMAINS ON 2LPM SUPPLEMENTAL OXYGEN VIA NASAL CANNULA. RESPIRATORY THERAPY NOTIFIED AND PROVIDED BREATHING TX AT THAT TIME. PATIENT WITH NEW ORDER FOR NICOTINE GUM ADMINISTERED THROUGHOUT SHIFT PER SEP. SIGNIFICANT OTHER, JAYCE, AT BEDSIDE THROUGHOUT SHIFT AND FRIEND CAME TO VISIT THIS EVENING WELL. POWERGLIDE PLACED TO RIGHT UPPER ARM THIS MORNING AND PIV TO LEFT FOOT REMOVED. NO OTHER CONCERNS AT THIS TIME.
[2024-06-17 19:59] VITALS: BP 162/113
[2024-06-18 04:08] VITALS: BP 149/109
--- NOTE | 2024-06-18 05:38 | NUR ---
SERVICE CENTER APPRAISER SUMMARY NO ACUTE CHANGES OVERNIGHT. PT DOES GET AIR HUNGER WITH TRIPS TO THE BEDSIDE COMMODE AND WILL OFTEN CRY WITH ANXIETY. HER THROAT IS VERY SORE AND HER COUGH IS VERY PAINFUL AND SHE APPRECIATES THE TESSALON PEARLS AND THROAT LOZENGES AND TYLENOL. PT IS REQUIRING 2L WHILE AWAKE AND WHILE ASLEEP AND IS SATING 90-92% ON CONTINUOUS BIOX.
[2024-06-18 06:09] LABS: BASOPHILS ABSOLUTE AUTO 0.05 K/mm3 (0.00-0.23); BASOPHILS PERCENT AUTO 0 % (0-2); EOSINOPHILS ABSOLUTE AUTO 0.04 K/mm3 (0.00-0.68); EOSINOPHILS PERCENT AUTO 0 % (0-6); Hematocrit 45.3 % (33.0-51.0); Hemoglobin 15.4 g/dL (11.5-16.0); IMMATURE GRAN ABSOLUTE AUTO 0.12 K/mm3 (0.00-0.10); IMMATURE GRAN PERCENT AUTO 1 % (0-1); LYMPHOCYTES ABSOLUTE AUTO 3.37 K/mm3 (0.84-5.20); LYMPHOCYTES PERCENT AUTO 15 % (21-46); MONOCYTES ABSOLUTE AUTO 0.99 K/mm3 (0.16-1.47); MONOCYTES PERCENT AUTO 5 % (4-13); Mean Corpuscular HGB 31.3 pg (26.0-34.0); Mean Corpuscular Volume 92 fL (80-100); Mean Platelet Volume 10.3 fL (9.1-12.4); NEUTROPHILS ABSOLUTE AUTO 17.36 K/mm3 (1.96-9.15); NEUTROPHILS PERCENT AUTO 79 % (41-73); Platelet Count 266 K/mm3 (150-400); RDW Coefficient Variation 15.2 % (11.7-14.2); RDW Standard Deviation 50.5 fL (35.1-46.3); Red Blood Cell Count 4.92 M/mm3 (3.80-5.20); White Blood Cell Count 21.93 K/mm3 (4.00-11.30)
[2024-06-18 06:25] LABS: Bun/Creatinine Ratio 24.8 (12.0-20.0); Calcium, Blood 7.9 mg/dL (8.5-10.1); Creatinine, Blood 0.65 mg/dL (0.40-1.00); Potassium, Blood 4.5 mmol/L (3.5-5.5)
[2024-06-18 07:47] VITALS: BP 152/110
[2024-06-18] MEDS ORDERED: HyDROXyzine HCl 25 MG Tab PO PRN (08:30)
[2024-06-18] MEDS ORDERED: Metoprolol Succinate 25 MG TABCR PO SCH (09:00)
[2024-06-18] MEDS ORDERED: Furosemide 40 MG Tab PO SCH (09:00)
[2024-06-18] MEDS ORDERED: Nicotine Polacrilex 2 MG Gum PO PRN (10:00)
[2024-06-18] MEDS ORDERED: NIFEdipine 30 MG TabCR PO SCH (14:00)
[2024-06-18] MEDS ORDERED: Furosemide 10 MG / ML 2ML Vial IV SCH (14:00)
[2024-06-18 14:09] VITALS: BP 149/106
[2024-06-18 16:17] VITALS: BP 142/99
--- NOTE | 2024-06-18 19:12 | NUR ---
PT A&OX4, ANXIOUS ABOUT SOB WITH EXERTION. CONTINUOUS PULSE OX WITH SATURATION OF 93% THROUGH OUT THE DAY. ST 104 ON TELE, HTN, LUNGS CLEAR. PT COOPERATIVE WITH CARE. PRN CEPECOL, AND TESSALON PEARLS FOR COUGH AND SORE THROAT. PT EXPRESSED CONCERNS OF FACIAL SWELLING, REVIEWED PT MEDS TO RULE OUT ALLERGY, MORE LIKELY R/T HEART FAILURE AND PULMONARY HTN. LASIX STARTED, AND ATARAX FOR ANXIETY. STRICT I&O, PT EDUCATED. CALLS APPROPRIATELY CALL LIGHT IN REACH.
[2024-06-18 20:00] VITALS: BP 124/94
[2024-06-19 03:02] VITALS: BP 112/81
[2024-06-19 07:23] LABS: BASOPHILS ABSOLUTE AUTO 0.09 K/mm3 (0.00-0.23); BASOPHILS PERCENT AUTO 1 % (0-2); EOSINOPHILS ABSOLUTE AUTO 0.39 K/mm3 (0.00-0.68); EOSINOPHILS PERCENT AUTO 3 % (0-6); Hematocrit 52.6 % (33.0-51.0); Hemoglobin 18.1 g/dL (11.5-16.0); IMMATURE GRAN ABSOLUTE AUTO 0.04 K/mm3 (0.00-0.10); IMMATURE GRAN PERCENT AUTO 0 % (0-1); LYMPHOCYTES PERCENT AUTO 31 % (21-46); MONOCYTES ABSOLUTE AUTO 0.66 K/mm3 (0.16-1.47); MONOCYTES PERCENT AUTO 5 % (4-13); Mean Corpuscular HGB 31.2 pg (26.0-34.0); Mean Corpuscular HGB Conc 34.4 g/dL (31.5-36.5); Mean Corpuscular Volume 91 fL (80-100); Mean Platelet Volume 10.2 fL (9.1-12.4); NEUTROPHILS ABSOLUTE AUTO 7.55 K/mm3 (1.96-9.15); NEUTROPHILS PERCENT AUTO 59 % (41-73); Platelet Count 314 K/mm3 (150-400); RDW Coefficient Variation 15.1 % (11.7-14.2); RDW Standard Deviation 49.1 fL (35.1-46.3); White Blood Cell Count 12.73 K/mm3 (4.00-11.30)
[2024-06-19 07:30] VITALS: BP 112/83
[2024-06-19 07:31] VITALS: BP 111/83
[2024-06-19 07:40] LABS: Bun/Creatinine Ratio 23.1 (12.0-20.0); Calcium, Blood 8.7 mg/dL (8.5-10.1); Creatinine, Blood 0.69 mg/dL (0.40-1.00); Potassium, Blood 3.6 mmol/L (3.5-5.5)
[2024-06-19] MEDS ORDERED: Metoprolol Succinate 25 MG TABCR PO SCH (09:00)
[2024-06-19] MEDS ORDERED: NIFEdipine 30 MG TabCR PO SCH (09:00)
[2024-06-19 15:14] VITALS: BP 118/88
--- NOTE | 2024-06-19 19:28 | NUR ---
uneventful day, pt was quietly laying in bed, had no c/o pain yet still some distress with breathing, pt on 2 l and self transfers to bsc, pt to have home o2 eval. power glide flush but no bllod draw, antibiotic therapy cont. pt call appropriatly call light within reach.
[2024-06-19 19:39] VITALS: BP 132/92
[2024-06-20 02:29] VITALS: BP 109/87
--- NOTE | 2024-06-20 04:45 | NUR ---
SHIFT SUMMARY PT ALERT ORIENTED ABLE TO VERBALIZE NEEDS. GETS UP AD MARIPOSA IN THE ROOM. C/O HEADACHE MEDICATED WITH TYLENOL WITH GOOD RELIEF. HAS A POWERGLIDE TO HER RT ARM THAT IS INFUSING HER ANTIBIOTICS BUT IS UNABLE TO DRAW FROM. HER IV TO HER LT FA WAS TAKEN OUT R/T IT LEAKING. SHE REMAINS ON A CONTINUOUS PULSE OX. CONTINUES ON O2 AT 2L VIA NC SATTING AT 94%. REMAINS ON UNASYN FOR PNEUMONIA. LUNG SOUNDS CLEAR BUT DIMINISHED. NO C/O SOB THIS SHIFT. REMAINS ON TELEMETRY NSR AT 79. SHES DUE TO HAVE A HOME O2 EVAL DONE TODAY AND POSSIBLY DC TO HOME. SLEEPING IN BED AT THIS TIME WITH ROBBI LIGHT IN REACH.
[2024-06-20 06:25] LABS: Hematocrit 52.6 % (33.0-51.0); Mean Corpuscular HGB 30.7 pg (26.0-34.0); Mean Corpuscular HGB Conc 34.2 g/dL (31.5-36.5); Mean Corpuscular Volume 90 fL (80-100); Mean Platelet Volume 10.1 fL (9.1-12.4); Platelet Count 365 K/mm3 (150-400); RDW Coefficient Variation 15.2 % (11.7-14.2); RDW Standard Deviation 48.6 fL (35.1-46.3); Red Blood Cell Count 5.86 M/mm3 (3.80-5.20); White Blood Cell Count 11.67 K/mm3 (4.00-11.30)
[2024-06-20 06:49] LABS: Bun/Creatinine Ratio 23.4 (12.0-20.0); Calcium, Blood 8.9 mg/dL (8.5-10.1); Creatinine, Blood 0.73 mg/dL (0.40-1.00); Potassium, Blood 4.1 mmol/L (3.5-5.5)
[2024-06-20 07:06] LABS: BASOPHILS ABSOLUTE MAN 0.11 K/mm3 (0.00-0.23); BASOPHILS PERCENT MAN 1 % (0-2); EOSINOPHILS ABSOLUTE MAN 0.23 K/mm3 (0.00-0.68); EOSINOPHILS PERCENT MAN 2 % (0-6); LYMPHOCYTES % ATYPICAL MANUAL 1 % (0-0); LYMPHOCYTES ABSOLUTE MAN 4.43 K/mm3 (0.84-5.20); LYMPHOCYTES PERCENT MAN 37 % (21-46); MONOCYTES ABSOLUTE MAN 0.11 K/mm3 (0.16-1.47); MONOCYTES PERCENT MAN 1 % (4-13); NEUTROPHILS ABSOLUTE MAN 6.76 K/mm3 (1.96-9.15); SEG NEUTROPHILS PERCENT MAN 58 % (41-73); TOTAL CELLS COUNTED 100
[2024-06-20 08:21] VITALS: BP 127/89
[2024-06-20] MEDS ORDERED: Furosemide 40 MG Tab PO SCH (09:00)
[2024-06-20] MEDS ORDERED: NICO2 PO (11:47)
[2024-06-20] MEDS ORDERED: DOXY100 PO (11:51)
[2024-06-20] MEDS ORDERED: FLUT1DIS2 INH (11:51)
[2024-06-20] MEDS ORDERED: NIFE30ER PO (11:51)
[2024-06-20] MEDS ORDERED: ANORO ELLIPTA1 EAC1 INH (11:52)
--- NOTE | 2024-06-20 18:31 | NUR ---
PT EXPRESSED UNDERSTANDING OF DC TEACHING AND DENIES FURHTER QUESTIONS. POWERGLIDE WAS REMOVED INTACT AND PRESSURE DRESSED
== END 2024-06-20 16:32 | disposition home or self-care (01) | DRG 871 ==
LOC: ER 22:20 → MEDS 22:21 → ERHOLD 22:21 → MEDS 06-17 03:01
PROVIDERS: Emergency Medicine; Student in an Organized Health Care Education/Training Program; ADMIT Student in an Organized Health Care Education/Training Program
PROC: 8E0ZXY6 Isolation (ICD-10-PCS; principal; 2024-06-17)
PROC: 3E03329 Introduction of Other Anti-infective into Peripheral Vein, Percutaneous Approach (ICD-10-PCS; 2024-06-17)
DX: A41.9 Sepsis, unspecified organism (principal); J18.9 Pneumonia, unspecified organism; J96.01 Acute respiratory failure with hypoxia; J69.0 Pneumonitis due to inhalation of food and vomit; J44.1 Chronic obstructive pulmonary disease with (acute) exacerbation; J44.0 Chronic obstructive pulmonary disease with (acute) lower respiratory infection; R65.20 Severe sepsis without septic shock; Z99.81 Dependence on supplemental oxygen; E03.9 Hypothyroidism, unspecified; K59.00 Constipation, unspecified; I11.0 Hypertensive heart disease with heart failure; F10.90 Alcohol use, unspecified, uncomplicated; I27.20 Pulmonary hypertension, unspecified; R35.0 Frequency of micturition; I50.810 Right heart failure, unspecified; F17.210 Nicotine dependence, cigarettes, uncomplicated; Z71.6 Tobacco abuse counseling; F41.9 Anxiety disorder, unspecified; Z86.14 Personal history of Methicillin resistant Staphylococcus aureus infection; Z86.19 Personal history of other infectious and parasitic diseases; Z88.8 Allergy status to other drugs, medicaments and biological substances; Z79.899 Other long term (current) drug therapy
CPT/HCPCS: 0241U; 36415; 71046; 71260; 80048; 80053; 83605; 83690; 83880; 84145; 84439; 84443; 84481; 84484; 85025; 85379; 85610; 85730; 87040; 92610; 93005; 93010; 94640; 94664; 94761; 94762; 96365-59; 96366; 96367; 96372; 96375; 96376; 99285-25; A9270; G0378; J0295; J0696; J1650; J1940; J2919; J3370; J7030; J7050; Q9967

== ENCOUNTER 2024-08-08 19:34 | Inpatient (IN) | payer MEDICARE, OTHER ==
[~2024-08-08] VITALS: Ht 154.9 cm; Wt 61.8 kg
[~2024-08-08 19:34] MED LIST changes: +ALBU90OI INH; +ANORO ELLIPTA1 EAC1 INH; +DOXY100 PO; +FLUT1DIS2 INH; +LOSARTAN POTASS25 M2 PO; +METO25ER PO; +NICO2 PO; +NIFE30ER PO
[2024-08-08 19:58] LABS: BASOPHILS ABSOLUTE AUTO 0.08 K/mm3 (0.00-0.23); BASOPHILS PERCENT AUTO 1 % (0-2); EOSINOPHILS ABSOLUTE AUTO 0.08 K/mm3 (0.00-0.68); EOSINOPHILS PERCENT AUTO 1 % (0-6); Hematocrit 47.8 % (33.0-51.0); Hemoglobin 16.6 g/dL (11.5-16.0); Mean Corpuscular HGB 30.9 pg (26.0-34.0); Mean Corpuscular HGB Conc 34.7 g/dL (31.5-36.5); Mean Corpuscular Volume 89 fL (80-100); Mean Platelet Volume 10.2 fL (9.1-12.4); Platelet Count 207 K/mm3 (150-400); RDW Coefficient Variation 15.9 % (11.7-14.2); Red Blood Cell Count 5.37 M/mm3 (3.80-5.20); White Blood Cell Count 10.07 K/mm3 (4.00-11.30)
[2024-08-08 19:59] LABS: IMMATURE GRAN ABSOLUTE AUTO 0.06 K/mm3 (0.00-0.10); IMMATURE GRAN PERCENT AUTO 1 % (0-1); LYMPHOCYTES ABSOLUTE AUTO 4.33 K/mm3 (0.84-5.20); LYMPHOCYTES PERCENT AUTO 43 % (21-46); MONOCYTES ABSOLUTE AUTO 0.37 K/mm3 (0.16-1.47); MONOCYTES PERCENT AUTO 4 % (4-13); NEUTROPHILS ABSOLUTE AUTO 5.15 K/mm3 (1.96-9.15); NEUTROPHILS PERCENT AUTO 51 % (41-73)
[2024-08-08] MEDS ORDERED: FentaNYL Citrate 50 MCG/ML 2 ML Injection IV ONE (20:00)
[2024-08-08 20:14] LABS: International Normalized Ratio 0.97; Prothrombin Time Results 10.4 Sec (9.7-11.5)
[2024-08-08] MEDS ORDERED: NS 1,000 ML IV ONE (20:23)
[2024-08-08] MEDS ORDERED: NS 1,000 ML IV SCH ×2 (20:25→23:50)
[2024-08-08 20:29] LABS: Bilirubin, Total 0.6 mg/dL (0.1-1.0); Bun/Creatinine Ratio 29.3 (12.0-20.0); Calcium, Blood 9.3 mg/dL (8.5-10.1); Creatinine, Blood 0.89 mg/dL (0.40-1.00); Globulin, Blood 3.9 g/dL (2.2-4.0); Potassium, Blood 5.1 mmol/L (3.5-5.5); Total Protein, Blood 7.9 g/dL (6.4-8.2)
[2024-08-08] MEDS ORDERED: Diphth,Pertuss(Acell),Tet Vac 0.5 ML VIAL IM ONE (20:40)
[2024-08-08] MEDS ORDERED: Ondansetron HCl 2 MG / ML 2ML Vial IV ONE (22:10)
[2024-08-08] MEDS ORDERED: Ketorolac Tromethamine 15mg Vial IV ONE (22:15)
[2024-08-08 22:19] LABS: U Amphetamine Screen Not Detected; U Barbituate Screen Not Detected; U Benzodiazapine Screen Not Detected; U Buprenorphine Screen Not Detected; U Cannabinoids Screen Not Detected; U Cocaine Screen Not Detected; U Methadone Screen Not Detected; U Methamphetamine Screen Not Detected; U Opiates Screen Not Detected; U Oxycodone Screen Not Detected; U Phencyclidine Screen Not Detected
[2024-08-08] MEDS ORDERED: FLU VACC TS2024-25(6MOS UP)/PF 45 MCG/0.5 ML SYRINGE IM ONE (23:50)
[2024-08-08] MEDS ORDERED: FentaNYL Citrate 50 MCG/ML 2 ML Injection IV PRN (23:50)
[2024-08-08] MEDS ORDERED: Ondansetron HCl 2 MG / ML 2ML Vial IV PRN (23:50)
[2024-08-09] MEDS ORDERED: Thiamine HCl 100 MG in NS 50 ML IV SCH (00:06)
[2024-08-09] MEDS ORDERED: NS 1,000 ML IV ONE (00:12)
[2024-08-09] MEDS ORDERED: Ipratropium/Albuterol SulF 2.5-0.5MG/3 ML Amp INH SCH (02:15)
[2024-08-09] MEDS ORDERED: Mometasone/Formoterol MDI 100/5 mcg 13 GM INH SCH (02:15)
[2024-08-09] MEDS ORDERED: HYDROmorphone HCl/Pf 1MG SYR IV PRN (04:10)
[2024-08-09] MEDS ORDERED: TRELEGY ELLIPT1 EACH INH (04:20)
[2024-08-09] MEDS ORDERED: FentaNYL Citrate 50 MCG/ML 2 ML Injection IV PRN (04:20)
[2024-08-09] MEDS ORDERED: AMLO5 PO (04:22)
[2024-08-09 05:12] LABS: BASOPHILS ABSOLUTE AUTO 0.06 K/mm3 (0.00-0.23); BASOPHILS PERCENT AUTO 1 % (0-2); EOSINOPHILS ABSOLUTE AUTO 0.03 K/mm3 (0.00-0.68); EOSINOPHILS PERCENT AUTO 0 % (0-6); Hemoglobin 15.3 g/dL (11.5-16.0); IMMATURE GRAN ABSOLUTE AUTO 0.04 K/mm3 (0.00-0.10); IMMATURE GRAN PERCENT AUTO 0 % (0-1); LYMPHOCYTES ABSOLUTE AUTO 3.54 K/mm3 (0.84-5.20); LYMPHOCYTES PERCENT AUTO 27 % (21-46); MONOCYTES ABSOLUTE AUTO 0.69 K/mm3 (0.16-1.47); MONOCYTES PERCENT AUTO 5 % (4-13); Mean Corpuscular HGB 31.2 pg (26.0-34.0); Mean Corpuscular HGB Conc 34.8 g/dL (31.5-36.5); Mean Corpuscular Volume 90 fL (80-100); Mean Platelet Volume 10.7 fL (9.1-12.4); NEUTROPHILS ABSOLUTE AUTO 8.57 K/mm3 (1.96-9.15); NEUTROPHILS PERCENT AUTO 66 % (41-73); Platelet Count 160 K/mm3 (150-400); RDW Coefficient Variation 15.9 % (11.7-14.2); RDW Standard Deviation 52.9 fL (35.1-46.3); White Blood Cell Count 12.93 K/mm3 (4.00-11.30)
--- NOTE | 2024-08-09 05:30 | NUR ---
ASSUMPTION OF CARE: PATIENT IS ALERT AND ORIENTED X 4, ABLE TO MAKE NEEDS KNOWN, PAIN SCALE APPROPRIATE, NO NEUROLOGICAL DEFICIT, C SPINE CLEARED, COOPERATIVE WITH CARE. PAIN ON ASSUMPTION WAS UNCONTROLLED SPOKE TO PROVIDER ABOUT INCREASED PAIN MEDICATION, SEE NEW ORDERS. PATIENT RESPONDED WELL TO DILAUDED, SHE WAS ABLE TO DECREASED HER RR TO BELOW 20, ON ARRIVAL UPPER 20'S, MILDLY ANXIOUS DECREASED WITH PAIN CONTROLL. SPO2 DID DROP AFTER DOSING, NEEDED 3L. SPO2 CURRENLTY ON 95 ON 3L. SUTURED CUT TO THE RIGHT MERRITT, APPROXIAMTED WITH SUTURES IN ER. ABRASION TO THE RIGHT KNEE, BRUSING TO THE RIGHT FOOT PICTURE AND MARKING PREFORMED, NOTED SOME RIGHT ELBOW SWELLING AND MINIMAL, MINOR LIMITED MOTION. CALL TO DOCTOR. CURRENLTY INFUSING 75mL/Hr. NO OTHER CONCERNS. TELEMETRY CONTINOUS SPO2 MONITORING IN PLACE. PATIENT HAS CALL LIGHT WITHIN REACH. CIWA 0.
[2024-08-09 05:45] LABS: Albumin, Blood 3.7 g/dL (3.4-5.0); Albumin/Globulin Ratio 1.1 (0.8-1.8); Bilirubin, Total 1.2 mg/dL (0.1-1.0); Calcium, Blood 8.6 mg/dL (8.5-10.1); Creatinine, Blood 0.78 mg/dL (0.40-1.00); Globulin, Blood 3.4 g/dL (2.2-4.0); Potassium, Blood 4.2 mmol/L (3.5-5.5); Total Protein, Blood 7.1 g/dL (6.4-8.2)
[2024-08-09] MEDS ORDERED: Albuterol HFA200 ACT/6.7 GM INH INH PRN (06:50)
[2024-08-09] MEDS ORDERED: Sodium Bicarb 8.4% Inj 75 MEQ in Sodium Chloride 0.45% 1,000 ML IV ONE (07:00)
[2024-08-09 07:49] VITALS: BP 123/82
[2024-08-09] MEDS ORDERED: HYDROcodone 5-APAP 325 TAB PO PRN (08:55)
[2024-08-09] MEDS ORDERED: Potassium Chloride 10 Meq Tablet SA PO SCH (09:00)
[2024-08-09] MEDS ORDERED: Metoprolol Succinate 25 MG TABCR PO SCH (09:00)
[2024-08-09] MEDS ORDERED: TRELEGY ELLIPTA INH SCH ×2 (09:00→14:35)
[2024-08-09] MEDS ORDERED: Lidocaine 4% 1 Patch TOP SCH (09:00)
[2024-08-09] MEDS ORDERED: Furosemide 40 MG Tab PO SCH (09:00)
[2024-08-09 11:39] VITALS: BP 117/83
[2024-08-09 15:25] VITALS: BP 118/81
[2024-08-09 19:55] VITALS: BP 125/88
[2024-08-09] MEDS ORDERED: Acetaminophen 325 MG TABLET PO PRN (22:20)
[2024-08-09 23:33] VITALS: BP 112/71
[2024-08-10 02:50] VITALS: BP 131/82
[2024-08-10 05:16] LABS: BASOPHILS ABSOLUTE AUTO 0.05 K/mm3 (0.00-0.23); BASOPHILS PERCENT AUTO 1 % (0-2); EOSINOPHILS ABSOLUTE AUTO 0.12 K/mm3 (0.00-0.68); EOSINOPHILS PERCENT AUTO 1 % (0-6); Hematocrit 40.6 % (33.0-51.0); Hemoglobin 13.9 g/dL (11.5-16.0); IMMATURE GRAN ABSOLUTE AUTO 0.02 K/mm3 (0.00-0.10); IMMATURE GRAN PERCENT AUTO 0 % (0-1); LYMPHOCYTES ABSOLUTE AUTO 3.04 K/mm3 (0.84-5.20); LYMPHOCYTES PERCENT AUTO 35 % (21-46); MONOCYTES ABSOLUTE AUTO 0.51 K/mm3 (0.16-1.47); MONOCYTES PERCENT AUTO 6 % (4-13); Mean Corpuscular HGB 31.3 pg (26.0-34.0); Mean Corpuscular HGB Conc 34.2 g/dL (31.5-36.5); Mean Corpuscular Volume 91 fL (80-100); Mean Platelet Volume 10.9 fL (9.1-12.4); NEUTROPHILS ABSOLUTE AUTO 4.84 K/mm3 (1.96-9.15); NEUTROPHILS PERCENT AUTO 57 % (41-73); Platelet Count 122 K/mm3 (150-400); RDW Coefficient Variation 16.2 % (11.7-14.2); RDW Standard Deviation 54.7 fL (35.1-46.3); Red Blood Cell Count 4.44 M/mm3 (3.80-5.20); White Blood Cell Count 8.58 K/mm3 (4.00-11.30)
[2024-08-10 05:40] LABS: Albumin, Blood 3.1 g/dL (3.4-5.0); Bun/Creatinine Ratio 23.9 (12.0-20.0); Calcium, Blood 8.4 mg/dL (8.5-10.1); Creatinine, Blood 0.63 mg/dL (0.40-1.00); Globulin, Blood 3.2 g/dL (2.2-4.0); Potassium, Blood 3.4 mmol/L (3.5-5.5); Total Protein, Blood 6.3 g/dL (6.4-8.2)
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
[2024-08-10] MEDS ORDERED: Potassium Chloride 20 MEQ TabCR PO ONE (06:40)
[2024-08-10 07:56] VITALS: BP 123/88
[2024-08-10] MEDS ORDERED: Thiamine HCl 100 MG Tab PO SCH (09:00)
[2024-08-10] MEDS ORDERED: Spironolactone 12.5 MG TAB PO SCH (09:00)
[2024-08-10] MEDS ORDERED: Potassium Chloride 10 Meq Tablet SA PO SCH (09:00)
[2024-08-10] MEDS ORDERED: Empagliflozin 10 MG TAB PO SCH (09:00)
[2024-08-10] MEDS ORDERED: Cyclobenzaprine HCl 10 MG Tab PO PRN (10:00)
[2024-08-10 11:54] VITALS: BP 107/83
[2024-08-10] MEDS ORDERED: ROSUVASTATIN CA10 MG PO (14:34)
[2024-08-10] MEDS ORDERED: ACET325 PO (15:27)
[2024-08-10] MEDS ORDERED: JARDIANCE10 MG PO (15:28)
[2024-08-10] MEDS ORDERED: Norco 5-325 Ta1 EACH PO (15:29)
[2024-08-10] MEDS ORDERED: LIDO700A20 TOP (15:31)
[2024-08-10] MEDS ORDERED: SPIR25 PO (15:32)
--- NOTE | 2024-08-10 16:06 | NUR ---
DISCHARGE SUMMARY PT A&Ox4, CALLS AND COMMUNICATES NEEDS APPROPRIATELY. BP STABLE, SINUS 80-100's, DENIES CP/PRESSURE. SpO2> 92% RA-1L VIA NC, DENIES SOB. REPROTS PAIN WITH INSPIRATION. IND/SBA TO BATHROOM. MANAGED PAIN PER EMAR WITH PO MEDICATION. WOUND CARE DONE ON LLE WOUND. DISCHARGE EDUCATION PROVIDED WITH VISITORS AT BEDSIDE. ALL PT BELONGINGS WITH PT. PT TAKEN OUT VIA WHEELCHAIR BY CLINICAL STAFF MEMBER AT APPROXIMATELY 1600.
[2024-09-07] MEDS ORDERED: FURO20 PO (06:38)
[2024-09-07] MEDS ORDERED: SPIR25 PO (06:39)
[2024-09-07] MEDS ORDERED: TRELEGY ELLIPT1 EACH INH (06:40)
[2024-09-07] MEDS ORDERED: AMLO5 PO (06:40)
== END 2024-08-10 16:39 | disposition home or self-care (01) | DRG 314 ==
LOC: ER 19:34 → PCU 22:09 → ERHOLD 22:09 → PCU 08-09 03:47
PROVIDERS: Internal Medicine; Student in an Organized Health Care Education/Training Program; ADMIT Surgery
DX: I27.20 Pulmonary hypertension, unspecified (principal); J96.00 Acute respiratory failure, unspecified whether with hypoxia or hypercapnia; S22.41XA Multiple fractures of ribs, right side, initial encounter for closed fracture; S52.021A Displaced fracture of olecranon process without intraarticular extension of right ulna, initial encounter for closed fracture; S81.812A Laceration without foreign body, left lower leg, initial encounter; F41.9 Anxiety disorder, unspecified; I50.812 Chronic right heart failure; I11.0 Hypertensive heart disease with heart failure; F17.220 Nicotine dependence, chewing tobacco, uncomplicated; F10.129 Alcohol abuse with intoxication, unspecified; E87.6 Hypokalemia; D69.6 Thrombocytopenia, unspecified; Z79.899 Other long term (current) drug therapy; Z88.8 Allergy status to other drugs, medicaments and biological substances; V27.49XA Other motorcycle driver injured in collision with fixed or stationary object in traffic accident, initial encounter
CPT/HCPCS: 12002; 36415; 70450; 71045; 71260; 72125; 73080; 73130; 73200; 73562-LT; 73562-RT; 73590; 73630; 74177; 80053; 80320; 83880; 84484; 84703; 85025; 85610; 85730; 90471; 90715; 93005; 93010; 93306; 94640; 94664; 94760; 94761; 96361-59; 96374-59; 99285-25; A9270; G0378; J1171; J1885; J2405; J3010; J3411; J7030; Q9967

== ENCOUNTER 2024-09-07 05:57 | Day surgery (SDC) | payer MEDICARE, OTHER ==
[~2024-09-07] VITALS: Ht 154.9 cm; Wt 58.0 kg
[~2024-09-07 05:57] MED LIST changes: +ACET325 PO; +AMLO5 PO; +JARDIANCE10 MG PO; +LIDO700A20 TOP; +Norco 5-325 Ta1 EACH PO; +ROSUVASTATIN CA10 MG PO; +SPIR25 PO; +TRELEGY ELLIPT1 EACH INH
[2024-09-07] MEDS ORDERED: BENZ100A PO (06:37)
[2024-09-07] MEDS ORDERED: METO25ER PO (06:38)
[2024-09-07] MEDS ORDERED: ALBU90OI INH (06:40)
[2024-09-07 06:44] VITALS: BP 130/88
[2024-09-07] MEDS ORDERED: NS 250 ML IV ONE (07:30)
[2024-09-07] MEDS ORDERED: Heparin Sodium 1000 Units/ML 10ML MDV ONE (07:30)
[2024-09-07] MEDS ORDERED: NS 1,000 ML IV ONE (07:30)
[2024-09-07] MEDS ORDERED: NS 500 ML IV ONE (07:36)
[2024-09-07] MEDS ORDERED: NS 100 ML IV ONE (08:51)
[2024-09-07] MEDS ORDERED: Adenosine 3 MG/ML 30 ML Vial ONE (08:59)
[2024-09-07 09:43] VITALS: BP 126/84
[2024-09-07 09:45] VITALS: BP 132/90
--- NOTE | 2024-09-07 09:45 | NUR ---
PT TO RECOVERY ROOM POST PROCEDURE. PT ALERT AND ORIENTED, DENIES PAIN POST PROCEDURE. MONITOR SR 70'S, B/P 126/84, SPO2 98% RA. R IJ SITE NO SWELLING/HEMATOMA, TEGADERM DRSG INTACT. PT TAKING BREAKFAST WITHOUT ISSUE.
[2024-09-07 10:00] VITALS: BP 118/80
[2024-09-07 10:15] VITALS: BP 130/84
[2024-09-07 10:30] VITALS: BP 139/94
--- NOTE | 2024-09-07 10:40 | NUR ---
PT DRESSED SELF WITHOUT ISSUE; IV REMOVED-CANNULA INTACT.
--- NOTE | 2024-09-07 10:56 | NUR ---
PT RECEIVED DISCHARGE INSTRUCTIONS AND MED LIST; VERBALIZED GOOD UNDERSTANDING. PT LEFT FACILITY VIA AMB, CONDITION STABLE.
== END 2024-09-07 10:56 | disposition home or self-care (01) ==
LOC: MHTC 05:57
DX: I27.20 Pulmonary hypertension, unspecified (principal); J44.9 Chronic obstructive pulmonary disease, unspecified; I10 Essential (primary) hypertension; E78.5 Hyperlipidemia, unspecified; Z79.899 Other long term (current) drug therapy; Z88.8 Allergy status to other drugs, medicaments and biological substances
CPT/HCPCS: 76937; 93451; C1769; C1894; J0153; J1644; J7030; J7040; J7050

== ENCOUNTER 2024-09-30 22:55 | Emergency (ER) | payer MEDICARE, OTHER ==
[~2024-09-30] VITALS: Ht 154.9 cm; Wt 61.7 kg
[2024-09-30] MEDS ORDERED: Ondansetron HCl 2 MG / ML 2ML Vial IV PRN (23:10)
[2024-09-30 23:46] LABS: BASOPHILS ABSOLUTE AUTO 0.06 K/mm3 (0.00-0.23); BASOPHILS PERCENT AUTO 1 % (0-2); EOSINOPHILS ABSOLUTE AUTO 0.09 K/mm3 (0.00-0.68); EOSINOPHILS PERCENT AUTO 1 % (0-6); Hematocrit 35.7 % (33.0-51.0); Hemoglobin 12.2 g/dL (11.5-16.0); IMMATURE GRAN ABSOLUTE AUTO 0.03 K/mm3 (0.00-0.10); IMMATURE GRAN PERCENT AUTO 0 % (0-1); LYMPHOCYTES ABSOLUTE AUTO 2.88 K/mm3 (0.84-5.20); LYMPHOCYTES PERCENT AUTO 27 % (21-46); MONOCYTES ABSOLUTE AUTO 0.73 K/mm3 (0.16-1.47); MONOCYTES PERCENT AUTO 7 % (4-13); Mean Corpuscular HGB 31.9 pg (26.0-34.0); Mean Corpuscular HGB Conc 34.2 g/dL (31.5-36.5); Mean Corpuscular Volume 93 fL (80-100); Mean Platelet Volume 9.4 fL (9.1-12.4); NEUTROPHILS ABSOLUTE AUTO 7.01 K/mm3 (1.96-9.15); NEUTROPHILS PERCENT AUTO 65 % (41-73); Platelet Count 264 K/mm3 (150-400); RDW Coefficient Variation 13.8 % (11.7-14.2); RDW Standard Deviation 46.3 fL (35.1-46.3); Red Blood Cell Count 3.83 M/mm3 (3.80-5.20)
[2024-10-01 00:14] LABS: Albumin, Blood 3.3 g/dL (3.4-5.0); Albumin/Globulin Ratio 0.9 (0.8-1.8); Bilirubin, Total 0.3 mg/dL (0.1-1.0); Calcium, Blood 8.5 mg/dL (8.5-10.1); Creatinine, Blood 0.7 mg/dL (0.40-1.00); Globulin, Blood 3.6 g/dL (2.2-4.0); Potassium, Blood 3.8 mmol/L (3.5-5.5); Total Protein, Blood 6.9 g/dL (6.4-8.2)
[2024-10-01 02:00] VITALS: BP 123/79
[2024-10-01] MEDS ORDERED: Ketorolac Tromethamine 30mg Vial IV ONE (02:15)
== END 2024-10-01 02:30 | disposition home or self-care (01) ==
LOC: ER 22:55
PROVIDERS: Student in an Organized Health Care Education/Training Program
DX: R07.9 Chest pain, unspecified (principal); M62.830 Muscle spasm of back; R05.3 Chronic cough; F41.9 Anxiety disorder, unspecified; I11.0 Hypertensive heart disease with heart failure; I50.9 Heart failure, unspecified; F17.220 Nicotine dependence, chewing tobacco, uncomplicated; Z88.8 Allergy status to other drugs, medicaments and biological substances; Z79.899 Other long term (current) drug therapy
CPT/HCPCS: 71046; 80053; 83690; 83880; 84484; 85025; 93005; 93010; 96374; 96375; 99284-25; J1885; J2405